=== PATIENT | male | born 1975 | race Hispanic/Latino ===

== ENCOUNTER 2016-08-08 23:46 | Inpatient (IN) | payer OTHER, MEDICARE ==
[~2016-08-08] VITALS: Ht 172.7 cm; Wt 145.2 kg
[~2016-08-08 23:46] MED LIST: INVEGA3 MG PO; LASIX20 M1 PO; METFORMIN HCL500 M3 PO
--- NOTE | 2016-08-09 00:22 | NUR ---
Informed waiting has been performed.
--- NOTE | 2016-08-09 00:52 | NUR ---
PT FROM HOME C/O SOB. PT STATES HE WENT TO THE CLINIC ON 08/05/16 AND THE CLINIC STATED THAT PT HAS AN UPI AND PLACED PT ON ZPAK. PT IN TRIAGE WITH NO ACUTE DISTRESS NOTED, PT STATES "I HAVE BEEN COUGHING UP BLOOD THE PAST 5 DAYS" PT HAS A PRODUCTIVE COUGH WITH CLEAR SPUTUM/RED TINGED. PT 02 SAT IN TRIAGE 84% ON RA. PT STATES DIZZINESS, WOLF, WEAKNESS.
[2016-08-09] MEDS ORDERED: AZITHROMYCIN250 M1 PO (00:53)
--- NOTE | 2016-08-09 01:14 | ED DYSPNEA/ASTHMA COMPLAINT ---
History of Present Illness General Chief Complaint: Upper Respiratory Sx/Fever Stated Complaint: URI,COUGHING UP BLOOD,CHILLS,WEAKNESS,TIRED Source: patient, family, old records Exam Limitations: no limitations Vital Signs & Intake/Output Vital Signs & Intake/Output Vital Signs Date Time Temp Pulse Resp B/P Pulse O2 O2 Flow FiO2 Ox Delivery Rate 08/11 0102 66 93 08/11 0000 94 Nasal 6.0L Cannula 08/11 0000 97.5 84 20 112/90 94 Nasal 6.0L Cannula 08/10 2130 95 Nasal 6.0L Cannula 08/10 2000 96 Nasal 6.0L Cannula 08/10 1600 98.1 78 24 112/80 96 Nasal 6.0L Cannula 08/10 1600 96 Nasal 6.0L Cannula 08/10 1326 94 Nasal 8L Cannula 08/10 1200 94 Aerosol 60% Mask 08/10 0900 95 Aerosol 60% Mask 08/10 0838 92 Nasal 6.0L Cannula 08/10 0800 98.3 83 24 122/86 94 Nasal 6.0L Cannula 08/10 0800 94 Nasal 6.0L Cannula 08/10 0400 92 Nasal 6.0L Cannula 08/10 0250 85 93 ED Intake and Output 08/11 0000 08/10 1200 Intake Total 1350 505 Output Total 600 400 Balance 750 105 Intake, IV 270 405 Intake, Oral 1080 100 Output, Urine 600 400 Allergies Coded Allergies: No Known Allergies (04/21/16) Reconcile Medications Azithromycin 250 MG TABLET 1 DP PO AD UPPER RESP INFECTION (Reported) 2 the first day followed by 1 for days 2-5 Paliperidone (Invega) 3 MG TAB.ER.24 1 TAB PO DAILY SCHIZOPHRENIA (Reported) Triage Note: PT FROM HOME C/O SOB. PT STATES HE WENT TO THE CLINIC ON 08/05/16 AND THE CLINIC STATED THAT PT HAS AN UPI AND PLACED PT ON ZPAK. PT IN TRIAGE WITH NO ACUTE DISTRESS NOTED, PT STATES "I HAVE BEEN COUGHING UP BLOOD THE PAST 5 DAYS" PT HAS A PRODUCTIVE COUGH WITH CLEAR SPUTUM/RED TINGED. PT 02 SAT IN TRIAGE 84% ON RA. PT STATES DIZZINESS, WOLF, WEAKNESS. Triage Nurses Notes Reviewed? yes HPI: Patient is a 40-year-old male presents complaining of cough, dyspnea, chest congestion. Symptoms for approximately 5-6 days. Patient was seen at an urgent care clinic and placed on a Z-Fermin with no improvement. Dyspnea progressively worsening, tonight has become severe. Cough was initially with clear sputum production that over the past 2-3 days has had blood tinged sputum. Mild intermittent chest pain. Occasional subjective fevers. Pain is currently minimal. Denies sick contacts, tobacco use. (YEMI GONZÁLES) Triage Nurses Notes Reviewed? yes Onset: Gradual Duration: day(s): Timing: single episode today Severity: moderate, severe Activities at Onset: none Prior Episodes/Possible Cause: no prior episodes Modifying Factors: Worsens With: movement. Associated Symptoms: cough, wheezing ([address],CARMINA Starr) Past History Travel History Traveled to [place] past 21 day No Medical History Any Pertinent Medical History? see below for history Neurological: NONE EENT: NONE Cardiovascular: NONE Respiratory: NONE Gastrointestinal: NONE Hepatic: NONE Renal: NONE Musculoskeletal: NONE Psychiatric: schizophrenia Endocrine: NIDDM Surgical History Surgical History: non-contributory Psychosocial History What is your primary language Faroese Tobacco Use: Never used ETOH Use: denies use Illicit Drug Use: denies illicit drug use (YEMI GONZÁLES) Family History Hx Contributory? No ([address],CARMINA Starr) Review of Systems Review of Systems Constitutional: Reports: chills, fever, malaise, weakness. EENTM: Reports: no symptoms. Respiratory: Reports: cough, short of breath, sputum production. Cardiovascular: Reports: chest pain. GI: Reports: no symptoms. Genitourinary: Reports: no symptoms. Musculoskeletal: Reports: no symptoms. Skin: Reports: no symptoms. Neurological/Psychological: Reports: no symptoms. Hematologic/Endocrine: Reports: no symptoms. Immunologic/Allergic: Reports: no symptoms. (YEMI GONZÁLES) Physical Exam Physical Exam General Appearance: alert, awake, anxious, severe distress Head: atraumatic, normal appearance Eyes: Bilateral: normal appearance, PERRL, EOMI. Ears, Nose, Throat: normal pharynx, normal ENT inspection, hearing grossly normal Neck: normal inspection, supple, full range of motion Respiratory: moderate diffuse inspiratory and expiratory wheezing with mild increased respiratory effort. Positive tachypnea. Cardiovascular: tachycardia (regular rhythm) Gastrointestinal: soft, non-tender Extremities: normal inspection, normal capillary refill, normal range of motion, no edema Neurologic/Psych: no motor/sensory deficits, awake, alert, oriented x 3, normal mood/affect Skin: diaphoresis Lymphatic: no anterior cervical tristan (YEMI GONZÁELS) Core Measures ACS in differential dx? No Severe Sepsis Present: No Septic Shock Present: No ([address],CARMINA Starr) Progress Plan of Care: Orders Procedure Date/time Status ICU LAB BUNDLE 08/11 050 Active CBC WITHOUT DIFFERENTIAL 08/11 050 Active RT RE-EVALUATION 08/10 UNK Complete THERAPIST ORDERS 08/10 UNK Complete Current Medications Sig/Paco Start time Last Medication Dose Stop Time Status Admin Albuterol Sulfate 3 ML Q4P PRN 08/10 1330 AC (Proventil) Laboratory Tests 08/10/16 0559: Anion Gap 10, Estimated GFR > 60, BUN/Creatinine Ratio 24.3, CBC w Diff NO MAN DIFF REQ, RBC 5.80, MCV 85.3, MCH 27.5, RDW 13.2, MPV 8.0, Gran % 82.2 H, Lymphocytes % 10.9 L, Monocytes % 6.6, Eosinophils % 0, Basophils % 0.3, Absolute Granulocytes 7.5 H, Absolute Lymphocytes 1.0 L, Absolute Monocytes 0.6, Absolute Eosinophils 0, Absolute Basophils 0, PUBS MCHC 32.2 L Patient reports mild improvement after nebulizer treatment. Discussed with patient and his family need for admission given hypoxia and respiratory distress. Antibiotics ordered. Discussed with and signed out to Dr. Kiser with labs and x-ray pending. (YEMI GONZÁLES) Hand-Off Endorsed To: CARMINA KISER MD Endorsed Time: 129 Pending: labs, Xray (YEMI GONZÁLES) Differential Diagnosis: asthma, bronchitis, CHF, COPD, pneumonia Diagnostic Imaging: Viewed by Me: Radiology Read. Discussed w/RAD: Radiology Read. CXR Impression: underpenetrated... full report below. Initial ED EKG: sinus tach Comments: PATIENT: NOEL GRAY PRESENT AGE: 40 PATIENT ACCOUNT NO: [id number] : 77 LOCATION: [facility] ORDERING PHYSICIAN: YEMI KHAN SERVICE DATE: 08/09/16 EXAM TYPE: RAD - XRY-PORTABLE CHEST XRAY EXAMINATION: XR PORTABLE CHEST CLINICAL INFORMATION: Hypoxia, cough COMPARISON: None. TECHNIQUE: AP portable AP upright view of the chest FINDINGS: Asymmetric opacification of the lateral half of the left upper lobe is favored to be technical in nature, due to asymmetric positioning the patient on the study as well as the significant superimposed soft tissues. Cardiac and mediastinal contours are within normal limits for technique. Pulmonary vasculature is also within normal limits. No focal consolidation is identified. IMPRESSION: Limited study due to underpenetration. No definite pulmonary consolidation. Consider dedicated PA and lateral nonportable radiographs for better evaluation. DICTATED BY: KATJA YANES MD DATE/TIME DICTATED:08/09/16149 PHONE BANKER:JAVEIR DATE/TIME TRANSCRIBED:08/09/16149 CONFIDENTIAL, DO NOT COPY WITHOUT APPROPRIATE AUTHORIZATION. <Electronically signed in Other Vendor System> SIGNED BY: KATJA YANES MD 08/09/16 0155 (CARMINA KISER MD) Departure Departure Disposition: STILL A PATIENT Condition: Stable Referrals: MAGALYS REA MD (PCP/Family) Departure Forms: Customer Survey General Discharge Information (YEMI GONZÁLES) Departure Clinical Impression Primary Impression: Pneumonia Secondary Impressions: Sepsis Referred to [facility] as new patient No Admission Note Spoke With: TRISTIN RICHMOND MD Documentation of Exam: Documentation of any treatments & extenuating circumstances including Concerns Regarding Discharge (functional status, medication knowledge or non-compliance, living conditions, etc.) that warrant an admission rather than observation: pt with significant hypoxia, bronchospasm to my exam... requires 02, steroids, nebs, iv abx... feeling better at present, stable for gen med. PA/LITIGATOR Co-Sign Statement Statement: ED Attending supervision documentation- [x] I saw and evaluated the patient. I have also reviewed all the pertinent lab results and diagnostic results. I agree with the findings and the plan of care as documented in the PA's/LITIGATOR's documentation. [] I have reviewed the ED Record and agree with the PA's/LITIGATOR's documentation. [] Additions or exceptions (if any) to the PAs/LITIGATOR's note and plan are summarized below: [] (CARMINA KISER MD) Critical Care Note Critical Care Note Critical Care Time: 30-74 min (YEMI GONZÁLES) Critical Care Note Critical Care Time: 30-74 min (CARMINA KISER MD R.) Lactic Acid Cancelled 08/09/16134: Lactic Acid 0.7 08/09/16134: Anion Gap 11, Estimated GFR > 60, BUN/Creatinine Ratio 18.3, Glucose 100 H, Calcium 8.8, Total Bilirubin 0.7, AST 30, ALT 53, Alkaline Phosphatase 72, Creatine Kinase 98, Troponin I < 0.01, Lxe-H-Podyzyhbqha Pept 29.2, Total Protein 7.5, Albumin 4.2, Globulin 3.3, Albumin/Globulin Ratio 1.3, Triglycerides 99, Cholesterol 154, LDL Cholesterol, Calc 103, HDL Cholesterol 32 L, Cholesterol/HDL Ratio 5 H, PT 12.2, INR 1.16, D-Dimer < 200, CBC w Diff NO MAN DIFF REQ, RBC 6.15 H, MCV 84.4, MCH 27.4, RDW 13.3, MPV 8.1, Gran % 66.1, Lymphocytes % 21.5, Monocytes % 11.1 H, Eosinophils % 1.0, Basophils % 0.3, Absolute Granulocytes 4.5, Absolute Lymphocytes 1.5, Absolute Monocytes 0.8 H, Absolute Eosinophils 0.1, Absolute Basophils 0, PUBS MCHC 32.5 L Microbiology 08/09 1545 URINE ROUT: Legionella Antigen - RECD 08/09 1545 URINE ROUT: Streptococcus pneumoniae Antigen (M - RECD 08/09 1306 UPPER RESP: Surveillance Culture - RECD 08/09 1207 GI: Surveillance Culture - COLB 08/09 0623 LOWER RESP: Respiratory Culture - ORD 08/09 0623 LOWER RESP: Gram Stain - ORD 08/09 0130 BLOOD: Blood Culture - RECD 08/09 0115 BLOOD: Blood Culture - RECD Patient reports mild improvement after nebulizer treatment. Discussed with patient and his family need for admission given hypoxia and respiratory distress. Antibiotics ordered. Discussed with and signed out to Dr. Kiser with labs and x-ray pending. (YEMI GONZÁLES) Diagnostic Imaging: Viewed by Me: Radiology Read. Discussed w/RAD: Radiology Read. CXR Impression: underpenetrated... full report below. Initial ED EKG: sinus tach Comments: PATIENT: NOEL GRAY PRESENT AGE: 40 PATIENT ACCOUNT NO: [id number] : 77 LOCATION: [facility] ORDERING PHYSICIAN: YEMI KHAN SERVICE DATE: 08/09/16 EXAM TYPE: RAD - XRY-PORTABLE CHEST XRAY EXAMINATION: XR PORTABLE CHEST CLINICAL INFORMATION: Hypoxia, cough COMPARISON: None. TECHNIQUE: AP portable AP upright view of the chest FINDINGS: Asymmetric opacification of the lateral half of the left upper lobe is favored to be technical in nature, due to asymmetric positioning the patient on the study as well as the significant superimposed soft tissues. Cardiac and mediastinal contours are within normal limits for technique. Pulmonary vasculature is also within normal limits. No focal consolidation is identified. IMPRESSION: Limited study due to underpenetration. No definite pulmonary consolidation. Consider dedicated PA and lateral nonportable radiographs for better evaluation. DICTATED BY: KATJA YANES MD DATE/TIME DICTATED:08/09/16149 PHONE BANKER:JAVIER DATE/TIME TRANSCRIBED:08/09/16149 CONFIDENTIAL, DO NOT COPY WITHOUT APPROPRIATE AUTHORIZATION. <Electronically signed in Other Vendor System> SIGNED BY: KATJA YANES MD 08/09/16 [address]155 ([address],CARMINA Starr) Departure Departure Disposition: STILL A PATIENT Condition: Stable Referrals: MAGALYS REA MD (PCP/Family) Departure Forms: Customer Survey General Discharge Information (NILSA KHAN,YEMI) Departure Clinical Impression Primary Impression: Pneumonia Secondary Impressions: Sepsis Referred to [facility] as new patient No Admission Note Spoke With: TRISTIN RICHMOND MD Documentation of Exam: Documentation of any treatments & extenuating circumstances including Concerns Regarding Discharge (functional status, medication knowledge or non-compliance, living conditions, etc.) that warrant an admission rather than observation: pt with significant hypoxia, bronchospasm to my exam... requires 02, steroids, nebs, iv abx... feeling better at present, stable for gen med. PA/LITIGATOR Co-Sign Statement Statement: ED Attending supervision documentation- [x] I saw and evaluated the patient. I have also reviewed all the pertinent lab results and diagnostic results. I agree with the findings and the plan of care as documented in the PA's/LITIGATOR's documentation. [] I have reviewed the ED Record and agree with the PA's/LITIGATOR's documentation. [] Additions or exceptions (if any) to the PAs/LITIGATOR's note and plan are summarized below: [] ([address],CARMINA Starr) Critical Care Note Critical Care Note Critical Care Time: 30-74 min (YEMI GONZÁLES) Critical Care Note Critical Care Time: 30-74 min ([address],CARMINA Starr)
--- NOTE | 2016-08-09 01:48 | NUR ---
PT MEDICATED WITH 125 SOLUMEDROL IV, 250MG ZITHRO PO, AND 1 G ROCEPHIN IV PER EMAR. PT RECIEVED GERARDO MAYORGA AND THIS RN SENT BLOOD CULTURES, LABS (VILLALBA, BLUE, SST, LAV) ALONG WITH A FLU SWAB.
--- NOTE | 2016-08-09 01:55 | RADIOLOGY REPORT ---
EXAMINATION: XR PORTABLE CHEST CLINICAL INFORMATION: Hypoxia, cough COMPARISON: None. TECHNIQUE: AP portable AP upright view of the chest FINDINGS: Asymmetric opacification of the lateral half of the left upper lobe is favored to be technical in nature, due to asymmetric positioning the patient on the study as well as the significant superimposed soft tissues. Cardiac and mediastinal contours are within normal limits for technique. Pulmonary vasculature is also within normal limits. No focal consolidation is identified. IMPRESSION: Limited study due to underpenetration. No definite pulmonary consolidation. Consider dedicated PA and lateral nonportable radiographs for better evaluation.
[2016-08-09 02:02] LABS: ABSOLUTE BASOPHIL COUNT 0 /CUMM (0.0-0.2); ABSOLUTE EOSINOPHIL COUNT 0.1 /CUMM (0.0-0.7); ABSOLUTE GRANULOCYTE CT 4.5 /CUMM (1.4-6.5); ABSOLUTE LYMPH COUNT 1.5 /CUMM (1.2-3.4); ABSOLUTE MONOCYTE COUNT 0.8 /CUMM (0.10-0.60); BASOPHIL % 0.3 % (0.0-2.0); GRANULOCYTE % 66.1 % (42.2-75.2); HEMATOCRIT 51.9 % (42-52); MEAN CORPUSCULAR HGB 27.4 PG (27.0-31.0); MEAN CORPUSCULAR HGB CONC 32.5 G/DL (33.0-37.0); MEAN CORPUSCULAR VOLUME 84.4 FL (80.0-94.0); MEAN PLATELET VOLUME 8.1 FL (7.4-10.4); PLATELET COUNT 185 /CUMM (130-400); RBC DISTRIBUTION WIDTH 13.3 % (11.5-14.5); RED BLOOD CELL CT 6.15 /CUMM (4.70-6.10); WHITE BLOOD CELL COUNT 6.9 /CUMM (4.8-10.8)
--- NOTE | 2016-08-09 04:22 | NUR ---
PT SLEEPING ON STRETCHER.
--- NOTE | 2016-08-09 05:52 | NUR ---
HOUSE STAFF IN FOR EVAL
--- NOTE | 2016-08-09 06:05 | History & Physical ---
[facility] 08[facility] 0545: General Information and HPI MD Statement: I have seen and personally examined NOEL GRAY and documented this H&P. The patient is a 40 year old M who presented with a patient stated chief complaint of [shortness of breath]. Source of Information: patient Exam Limitations: no limitations History of Present Illness: Patient is a 40-year-old male with past medical history of schizophrenia presents to the ED today with a chief complaint of shortness of breath, cough, and chest congestion. Patient developed a cough about 4 days ago. He was weak and lethargic and was seen at an urgent care clinic and started on a Z-Fermin. Patient took medication for 3 days with no improvement in his symptoms. He reports worsening cough with occasional blood-streaked sputum, abdominal pain secondary to excessive coughing and intermittent fevers. He reports that his has also been sick during this time. He was a smoker and smoked about 3-4 cigarettes for the past 20 years. Continues to smoke 1-2 cigarettes on and off. Family history of asthma in sister. Has never been diagnosed with asthma/never had a similar episode in the past. Had flu vaccine this year. Vitals in the ED temperature 98.8, pulse 109, respiration 18, blood pressure 143 /89, saturating 80% on room air. Saturations improved to 92% on 2 L nasal cannula. Patient has no white count on admission, H&H 16.9/51.9, normal chemistries, creatinine 0.6, lactic acid 0.7, d-dimer less than 200. EKG: Sinus tach, 110 bpm. Chest x-ray: No definite pulmonary consolidation. Study limited due to under penetration. Allergies/Medications Allergies: Coded Allergies: No Known Allergies (04/21/16) Home Med list Azithromycin 250 MG TABLET 1 DP PO AD UPPER RESP INFECTION (Reported) 2 the first day followed by 1 for days 2-5 Paliperidone (Invega) 3 MG TAB.ER.24 1 TAB PO DAILY SCHIZOPHRENIA (Reported) Past History Travel History Traveled to [place] past 21 day No Medical History Neurological: NONE EENT: NONE Cardiovascular: NONE Respiratory: NONE Gastrointestinal: NONE Hepatic: NONE Renal: NONE Musculoskeletal: NONE Psychiatric: schizophrenia Endocrine: NIDDM Surgical History Surgical History: non-contributory Past Family/Social History Psychosocial History ETOH Use: denies use Illicit Drug Use: denies illicit drug use Review of Systems Review of Systems Constitutional: Reports: malaise, weakness. EENTM: Reports: no symptoms. Cardiovascular: Reports: no symptoms. Respiratory: Reports: cough, hemoptysis, short of breath, sputum production, wheezing. GI: Reports: abdominal pain. Genitourinary: Reports: no symptoms. Musculoskeletal: Reports: no symptoms. Skin: Reports: no symptoms. Neurological/Psychological: Reports: no symptoms. Hematologic/Endocrine: Reports: no symptoms. Exam & Diagnostic Data Last 24 Hrs of Vital Signs/I&O Vital Signs Date Time Temp Pulse Resp B/P Pulse O2 O2 Flow FiO2 Ox Delivery Rate 08/09 0329 96.1 104 22 133/85 92 Nasal 6.0L Cannula 08/09 0149 92 Nasal 2.0L Cannula 08/09 0119 92 Nasal 3.0L Cannula 08/09 0048 98.8 109 18 143/89 80 Room Air Intake & Output 08/09 0800 08/09 0000 08/08 1600 Intake Total Output Total Balance Patient 142.428 kg Weight Physical Exam General Appearance Alert, Oriented X3, Cooperative, Moderate Distress, MORBIDLY OBESE Skin No Rashes, No Breakdown, No Significant Lesion HEENT Atraumatic, PERRLA, EOMI, NASAL CANNULA Neck Supple, No JVD Lymphatic Cervical nl Cardiovascular Regular Rate, Normal S1, Normal S2, No Murmurs Lungs DIFFUSE BILATERAL WHEEZING Abdomen Normal Bowel Sounds, Soft, No Tenderness Neurological Normal Speech, Strength at 5/5 X4 Ext, Normal Tone Extremities No Clubbing, No Cyanosis, No Edema, Normal Pulses Vascular Normal Pulses, Pulses Symmetrical Last 24 Hrs of Labs/Reid: Laboratory Tests 08/09/16 0407: Lactic Acid Cancelled 08/09/16 0135: Lactic Acid 0.7 08/09/16 0135: Anion Gap 11, Estimated GFR > 60, BUN/Creatinine Ratio 18.3, Glucose 100 H, Calcium 8.8, Total Bilirubin 0.7, AST 30, ALT 53, Alkaline Phosphatase 72, Total Protein 7.5, Albumin 4.2, Globulin 3.3, Albumin/Globulin Ratio 1.3, D-Dimer < 200, CBC w Diff NO MAN DIFF REQ, RBC 6.15 H, MCV 84.4, MCH 27.4, RDW 13.3, MPV 8.1, Gran % 66.1, Lymphocytes % 21.5, Monocytes % 11.1 H, Eosinophils % 1.0, Basophils % 0.3, Absolute Granulocytes 4.5, Absolute Lymphocytes 1.5, Absolute Monocytes 0.8 H, Absolute Eosinophils 0.1, Absolute Basophils 0, PUBS MCHC 32.5 L Microbiology 08/09 013 BLOOD: Blood Culture - RECD 08/09 114 BLOOD: Blood Culture - RECD Assessment/Plan Assessment: Patient is a 40-year-old male with past medical history of schizophrenia presents to the ED today with a chief complaint of shortness of breath, cough, and chest congestion. Outpatient failure. Z-Fermin. Occasional hemoptysis. Sick contact . Vitals in the ED temperature 98.8, pulse 109, respiration 18, blood pressure 143 /89, saturating 80% on room air. Saturations improved to 92% on 2 L nasal cannula. Patient has no white count on admission, H&H 16.9/51.9, normal chemistries, creatinine 0.6, lactic acid 0.7, d-dimer less than 200. EKG: Sinus tach, 110 bpm. Chest x-ray: No definite pulmonary consolidation. Study limited due to under penetration. Plan: 1. Acute hypoxic respiratory failure likely secondary to PNA Vs Bonchitis. Outpatient Z-Fermin failure. Low probability of PE, given diffuse wheezing and tight chest on examination and low Ddimer. -Admit patient to [facility] nebs [id number] -Maintain oxygen saturations above 92% -Obtain ABG -Received IV Solu-Medrol 125 in the ED. Continue Solu-Medrol 40 mg every 8 hours. -No evidence of consolidation on chest x-ray, we will do a chest CT to rule out pneumonia. -Patient received 1 dose of IV ceftriaxone and IV azithromycin. Will continue IV ceftriaxone/azithro. -Cultures and sputum cultures -Rapid flu test -Urine strep and Legionella -Pulmonology Consult in a.m. 2.History of schizophrenia -Continue patient's home medicine 3.Obesity -We'll check lipid panel regular diet dvt prophylaxsis regular diet full code PS: ABG showed respiratory acidosis, CT shows multifocal pneumonia. Patient started in BIPAP, repeat ABG in 1 hr. IV antibiotics for CAP. As Ranked By This Provider Problem List: 1. Pneumonia 2. Dyspnea Core Measures/Miscellaneous Acute Coronary Syndrome ACS Diagnosis: No Cerebrovascular Accident CVA/TIA Diagnosis: No Congestive Heart Failure CHF Diagnosis: No Venous Thromboembolism VTE Risk Factors: Age > 40, Smoking VTE Prophylaxis Ordered Inpt: [facility] prophylaxis d/t: No contraindications No VTE Pharm Prophylaxis d/t: No contraindications VTE Diagnosis: No VTE Type: NONE VTE Confirmed by (Test): NONE Severe Sepsis Severe Sepsis Present: No Septic Shock Septic Shock Present: No Miscellaneous Documentation Attending Case Discussed With: ANNE MARIE LANE,LYNNE Primary Care Physician: MAGALYS REA MD Patient sees these Specialists NONE Level of Patient Care: General Medicine TRISTIN RICHMOND 08/09/16 0825: Attending MD Review Statement Attending Statement Attending MD Statement: examined this patient, discuss w/resident/PA/VENETIAN BLIND WASHER, agreed w/resident/PA/VENETIAN BLIND WASHER, discussed with family, reviewed EMR data (avail), reviewed images, amended to note Attending Assessment/Plan: CC: Chest congestion, shortness of breath PMHx: Prediabetes Patient complains productive cough and occasional blood-tinged sputum, along with SOB. Patient complains of sore thoat after the severe persistent cough. he was treated with Z pack at urgent care without much improvement. Daughter and were sick before, occaional smoker, trying to quit. No hx asthma or COPD. Vitals: Tachycardic, tachypneic, requiring 4 L to saturate at 95%, blood pressure in acceptable range. On exam: A O 3, morbidly obese, obvious respiratory distress, accessory muscles in use, RS: Diffuse wheezing throughout the lung burger, no obvious crackles. CVS: S1-S2, RRR, tachycardia. No JVD appreciated. Abdomen: Soft, NT, ND, BS present, no focal neurological deficit, no pedal edema, no skin rashes. Labs: WBC 6.9, hemoglobin 16.9, bicarbonate 36, creatinine 0.6, LFT unremarkable , d-dimer less than 200 ABG: PH 7.24, PCO2 81, PO2 84, bicarbonate 34. Chest x-ray: Limited due to underpenetration. CT chest: Multifocal airspace consolidation in both lungs, more pronounced in the lung bases. This is most likely due to multifocal pneumonia. Developing pulmonary alveolar edema and aspiration are less likely. Hepatic steatosis. A and P #1 acute hypercapnic and hypoxic respiratory failure: Without any significant underlying pulmonary disease. Recent syncopal attacks present. Patient does not have any significant leukocytosis. Initial thought was acute bronchitis secondary to viral infection, but patient had significant wheeze along with elevated bicarbonate on BMP so ABG was obtained which shows respiratory acidosis , patient was started on BiPAP. Meanwhile CT chest was obtained for bloody sputum along with other respiratory complaints, which shows multifocal airspace consolidation. Patient does not have significant leukocytosis as mentioned, in this situation if this is viral versus bacterial is unclear. Continue IV ceftriaxone, azithromycin, closely watch O2 saturations, low threshold to transfer to ICU, consult Ray Morgan MD for pulmonology. Repeat ABG in one hour, if patient has significant hypoxia transferred to ICU. Continue nebulization, Mucinex, IV methylprednisolone 40 every 8 for bronchospasm if okay with pulmonology. #2 Alps for DVT prophylaxis, patient has minimal hemoptysis. Adequate pain control.
--- NOTE | 2016-08-09 06:14 | NUR ---
PATIENT TO CT BY STRETCHER.
--- NOTE | 2016-08-09 06:30 | NUR ---
Emergency Dept UC Admit Note: To be admitted to [facility] by DR. RICHMOND with COPD EXACERBATION as the diagnosis, to 2NB #210-2 location. Nursing Formulation Technician and admitting notified 08/09/16 at [id number]
--- NOTE | 2016-08-09 06:50 | CT SCAN REPORT ---
EXAMINATION: CT CHEST WITHOUT CONTRAST CLINICAL INFORMATION: Shortness of breath. Rule out acute pathology. COMPARISON: Progressively same day. TECHNIQUE: Multidetector volumetric CT imaging of the chest was done. Axial MIP volume rendering provided. Sagittal and coronal reformatted images were obtained. DLP: 900.6 mGy-cm. FINDINGS: LUNGS: Patchy peribronchial opacities are present within both lungs, most notably within the lower lobes and within the lingula. No cavitation. There is mild surrounding interspersed groundglass opacification. These are most compatible with multifocal pneumonia. Aspiration or early alveolar edema are also possible, though less likely. Central airways are clear. No bronchiectasis. MEDIASTINUM: Heart is normal in size. No adenopathy in the mediastinum or jc. Thoracic aorta is normal in caliber. No significant calcific atherosclerosis. PLEURA: There is no pleural effusion. No pleural mass or thickening. AXILLA: No lymphadenopathy. UPPER ABDOMEN: Hepatic steatosis. Upper abdomen is otherwise unremarkable. OSSEOUS STRUCTURES: Moderate moderate multilevel degenerative disc disease. No acute fracture or malalignment. IMPRESSION: 1. Multifocal airspace consolidation in both lungs, more pronounced in the lung bases. This is most likely due to multifocal pneumonia. Developing pulmonary alveolar edema and aspiration are less likely. 2. Hepatic steatosis.
--- NOTE | 2016-08-09 07:00 | NUR ---
PT PLACED ON BIPAP BY RESPIRATORY FOR HIGH CO2 SATS PER RESPIRATORY THERAPIST.
--- NOTE | 2016-08-09 07:30 | NUR ---
ASSUMED CARE, SLEEPING AT PRESENT. BPAP IN PLACE.
--- NOTE | 2016-08-09 08:15 | NUR ---
PT LETHARGIC, 02 SAT 88%, BPAP NURSE RE-ADJUSTED. RESP THERAPY CALLED. 02 INCREASED TO 45%, 02 SAT UP TO 93%.
--- NOTE | 2016-08-09 08:26 | Admission Certification ---
Admission Certification Certification Statement - As attending physician, I certify that at the time of - admission, based on clinical presentation, severity of - symptoms, need for further diagnostic testing and - therapeutic interventions, and risk of adverse outcomes - without in-hospital treatment, in my clinical assessment, - this patient requires an acute hospital stay for a minimum - of two nights or longer. I have also considered psychsocial - factors such as support system, advanced age, financial - issues, cognitive issues, and failed out-patient treatments, - past re-admission history, safety of patient, and lack of - compliance as applicable. Specific rationale supporting this admission is: Acute respiratory failure with pneumonia
--- NOTE | 2016-08-09 09:17 | Event Note ---
Event Note Event Note: upon visining the patient in the morning, patient was saturating 91% on 45% CPAP and he was drowsy. BP and WA were stable. patient was seen by and and it was decided that he should be transferred to ICU for closer monitoring.
--- NOTE | 2016-08-09 09:22 | NUR ---
DR. ARAGON HERE TO EVALUATE.
--- NOTE | 2016-08-09 09:45 | NUR ---
BPAP SETTINGS CHANGED BY DR. ARAGON, TO IPAP 16, O2 40%.
--- NOTE | 2016-08-09 09:51 | NUR ---
BED ASSIGNMENT 180-01, BED NOT QUITE READY, FLOOR WILL CALL WITH REPORT
[2016-08-09 09:54] LABS: PT 12.2 SEC (9.4-12.5)
--- NOTE | 2016-08-09 11:00 | NUR ---
REPORT TO ICU (JEANMARIE ALLISON). TO ICU ON MONITOR WITH FILTER TENDER JELLY.
--- NOTE | 2016-08-09 11:23 | Cons- CRCU ---
ROSSY LANE,KATYA 08/09/16 1123: General Information and HPI Consulting Request Date of Consult: 08/09/16 Requested By: Dr. Jad Parada Reason for Consult: CRCU management Source of Information: patient, EMS History of Present Illness: Patient is a 40-year-old male with past medical history of schizophrenia presents to the ED today with a chief complaint of shortness of breath, cough, and chest congestion. Patient developed a cough about 4 days ago. He was weak and lethargic and was seen at an urgent care clinic and started on a Z-Fermin. Patient took medication for 3 days with no improvement in his symptoms. He reports worsening cough with occasional blood-streaked sputum, abdominal pain secondary to excessive coughing and intermittent fevers. He reports that his has also been sick during this time. He was a smoker and smoked about 3-4 cigarettes for the past 20 years. Continues to smoke 1-2 cigarettes on and off. Family history of asthma in sister. Has never been diagnosed with asthma/never had a similar episode in the past. Had flu vaccine this year. Vitals in the ED temperature 98.8, pulse 109, respiration 18, blood pressure 143 /89, saturating 80% on room air. Saturations improved to 92% on 2 L nasal cannula. Patient has no white count on admission, H&H 16.9/51.9, normal chemistries, creatinine 0.6, lactic acid 0.7, d-dimer less than 200. EKG: Sinus tach, 110 bpm. Chest x-ray: No definite pulmonary consolidation. Study limited due to under penetration. Allergies/Medications Allergies: Coded Allergies: No Known Allergies (04/21/16) Home Med List: Azithromycin 250 MG TABLET 1 DP PO AD UPPER RESP INFECTION (Reported) 2 the first day followed by 1 for days 2-5 Paliperidone (Invega) 3 MG TAB.ER.24 1 TAB PO DAILY SCHIZOPHRENIA (Reported) Current Medications: Current Medications Sig/Paco Start time Last Medication Dose Route Stop Time Status Admin Albuterol Sulfate 3 ML Q4H PRN 08/09 1315 AC INH Albuterol Sulfate 3 ML ONCE ONE 08/09 0115 DC 08/09 INH 08/09 0116 0112 Azithromycin 500 MG DAILY 08/09 1000 AC 08/09 Sodium Chloride 250 ML IV 1059 Azithromycin 250 MG ONCE ONE 08/09 0130 DC 08/09 PO 08/09 0131 0148 Ceftriaxone Sodium 1,000 MG DAILY 08/09 1000 AC IV Ceftriaxone Sodium 0 .STK-MED ONE 08/09 0143 DC .ROUTE Ceftriaxone Sodium 1,000 MG ONCE ONE 08/09 0130 DC 08/09 IV 08/09 0131 0148 Enoxaparin Sodium 40 MG DAILY 08/09 1000 AC 08/09 SC 1439 Influenza Virus 0.5 ML ONCE ONE 08/10 1000 AC Vaccine IM 08/10 1001 Influenza Virus 0.5 ML ONCE ONE 08/09 1230 CAN Vaccine IM 08/09 1500 Ipratropium [place] 2.5 ML ONCE ONE 08/09 0115 DC 08/09 INH 08/09 0116 0112 Methylprednisolone 40 MG Q8 08/09 1400 AC 08/09 IV 1438 Methylprednisolone 0 .STK-MED ONE 08/09 0120 DC .ROUTE Methylprednisolone 125 MG ONCE ONE 08/09 0115 DC 08/09 IV 08/09 0116 0131 Paliperidone 3 MG DAILY 08/09 1000 AC PO Sodium Chloride 1,000 ML Q13H 08/09 1000 AC 08/09 IV 08/09 2259 1033 Review of Systems Review of Systems Constitutional: Reports: see HPI, malaise, weakness. EENTM: Reports: no symptoms, see HPI. Comments ROS as above Past History Travel History Traveled to [place] past 21 day No Medical History Neurological: NONE EENT: NONE Cardiovascular: NONE Respiratory: NONE Gastrointestinal: NONE Hepatic: NONE Renal: NONE Musculoskeletal: NONE Psychiatric: schizophrenia Endocrine: NIDDM Surgical History Surgical History: non-contributory Family History Relations & Conditions If Any: Relation not specified for: *No pertinent family history Psychosocial History Where Do You Live? Home Who Do You Live With? spouse, child Services at Home: None Smoking Status: Current Everyday Smoker ETOH Use: denies use Illicit Drug Use: denies illicit drug use Functional Ability ADLs Independent: dressing, eating, toileting, bathing. Ambulation: independent IADLs Independent: shopping, housework, finances, food prep, telephone, transportation , medication admin. Employment History Employment: Employed Exam & Diagnostic Data Last 24 Hrs of Vital Signs/I&O Vital Signs Date Time Temp Pulse Resp B/P Pulse O2 O2 Flow FiO2 Ox Delivery Rate 08/09 1635 93 BIPAP 40% 08/09 1630 88 93 08/09 1429 90 93 08/09 1257 BIPAP 40% 08/09 1200 92 BIPAP 08/09 1035 96.5 84 22 113/67 92 Trach Mask 40% 08/09 1005 102 93 08/09 0837 89 93 08/09 0826 96.3 80 16 111/63 87 CPAP 08/09 0704 86 92 08/09 0613 96.5 98 18 119/78 95 Nasal 4.0L Cannula 08/09 0329 96.1 104 22 133/85 92 Nasal 6.0L Cannula 08/09 0149 92 Nasal 2.0L Cannula 08/09 0119 92 Nasal 3.0L Cannula 08/09 0048 98.8 109 18 143/89 80 Room Air Intake & Output 08/09 1600 08/09 0800 08/09 0000 Intake Total 225 Output Total Balance 225 Intake, IV 225 Patient 145.15 kg 142.428 kg Weight Physical Exam General Appearance: alert, awake, moderate distress, obese, On Bipap Head: atraumatic, normal appearance Eyes: Bilateral: normal appearance, PERRL, EOMI. Ears, Nose, Throat: normal pharynx, normal ENT inspection, hearing grossly normal Neck: normal inspection, supple Respiratory: decreased breath sounds, rhonchi, wheezing, respiratory distress Cardiovascular: regular rate/rhythm, murmur, normal peripheral pulses, tachycardia Peripheral Pulses: 2+ radial (R), 2+ radial (L) Gastrointestinal: normal bowel sounds, soft, non-tender Back: normal inspection Extremities: normal inspection, normal capillary refill, normal range of motion, edema over the right lower extremity Neurologic/Psych: awake, alert, oriented x 3 Cranial Nerves: normal hearing, normal speech, PERRL Skin: intact Last 48 Hrs of Labs/Reid: Laboratory Tests 08/09/16 1545: Urine Opiates Screen Pending, Methadone Screen Pending, Barbiturate Screen Pending, Ur Phencyclidine Scrn Pending, Amphetamines Screen Pending, U Benzodiazepines Scrn Pending, Urine Cocaine Screen Pending, Urine Cannabis Screen Pending 08/09/16 1210: pH 7.37, pCO2 58 H, pO2 71 L, HCO3 33 H, ABG O2 Sat (Measured) 95.0 L, P-50 (Temp Corrected) YES, Carboxyhemoglobin 0.8 L, O2 Concentration % 40%, Temperature 96.5 L, Respiration Rate 24, O2 Delivery Method BIPAP, Vent Mode ST , Expiratory Pressure 6, Inspiratory Pressure 16, Phlebotomy Draw Site RIGHT RADIAL 08/09/16 0905: pH 7.28 *L, pCO2 70 *H, pO2 76 L, HCO3 33 H, ABG O2 Sat (Measured) 93.0 L, Carboxyhemoglobin 0.8 L, O2 Concentration % 45, Respiration Rate 24, O2 Delivery Method BIPAP, Vent Mode ST, Expiratory Pressure 6, Inspiratory Pressure 18, Phlebotomy Draw Site RIGHT RADIAL 08/09/16 0640: pH 7.24 *L, pCO2 81 *H, pO2 84, HCO3 34 H, ABG O2 Sat (Measured) 94.0 L, P-50 (Temp Corrected) N, Carboxyhemoglobin 0.9 L, O2 Concentration % 6L, O2 Delivery Method N/C, Phlebotomy Draw Site RIGHT RADIAL 08/09/16 0407: Lactic Acid Cancelled 08/09/16 0135: Lactic Acid 0.7 08/09/16 0135: Anion Gap 11, Estimated GFR > 60, BUN/Creatinine Ratio 18.3, Glucose 100 H, Calcium 8.8, Total Bilirubin 0.7, AST 30, ALT 53, Alkaline Phosphatase 72, Creatine Kinase 98, Troponin I < 0.01, Lgv-I-Lgdosvfvzqh Pept 29.2, Total Protein 7.5, Albumin 4.2, Globulin 3.3, Albumin/Globulin Ratio 1.3, Triglycerides 99, Cholesterol 154, LDL Cholesterol, Calc 103, HDL Cholesterol 32 L, Cholesterol/HDL Ratio 5 H, PT 12.2, INR 1.16, D-Dimer < 200, CBC w Diff NO MAN DIFF REQ, RBC 6.15 H, MCV 84.4, MCH 27.4, RDW 13.3, MPV 8.1, Gran % 66.1, Lymphocytes % 21.5, Monocytes % 11.1 H, Eosinophils % 1.0, Basophils % 0.3, Absolute Granulocytes 4.5, Absolute Lymphocytes 1.5, Absolute Monocytes 0.8 H, Absolute Eosinophils 0.1, Absolute Basophils 0, PUBS MCHC 32.5 L Diagnostic Data CXR Results Limited study due to underpenetration. No definite pulmonary consolidation. Consider dedicated PA and lateral nonportable radiographs for better evaluation. Other Results Chest CT: 1. Multifocal airspace consolidation in both lungs, more pronounced in the lung bases. This is most likely due to multifocal pneumonia. Developing pulmonary alveolar edema and aspiration are less likely. 2. Hepatic steatosis. Assessment/Plan Impression/Plan: Patient is a 40 YO M with PMH significant for schizophrenia (on Invega/ Paliperidone) came to the ER with shortness of breath, productive cough with blood tinged sputum. He also had sorethroat and failed outpatient antimicrobial therapy (recieved Z-pack). Vitals in ER - Tachycardic and tachypneic with saturation of 95% on 4L oxygen. ABG at 6am shows pH of 7.24, PaCO2 of 81, PaO2 of 81, HCo3 of 34 on 6L of oxygen ABG at 9am shows pH of 7.28, PaCO2 of 70, PaO2 of 70, HCo3 of 33 A decision was made to transfer patient to ICU for closer monitoring and CRCU consult is placed. Recommendations: Plan: Acute hypercarbic hypoxic respiratory failure secondary to viral bronchitis/ multifocal pneumonia * SOB, cough with blood tinged sputum, sick contacts * No white count/normal temparature. * Received a single dose of 125mg IV solumedrol along with ceftriaxone and Azithromycine in ER * Started on Bipap with NPO and Solumedrol 40mg Q8 * would continue ceftriaxone and azithromycin IV pending cultures. * On Bipap - ABG at noon are much improved with a pH of 7.37, PaCO2 of 58, PaO2 of 71 * Started on regular diet by 4pm * ProBNP, CK and Troponin are negative so far. * Flu vaccine given and TRC/nebs on board. * F/U ECHO Suspected DVT * Asymmetric swelling of the right leg with a D-Dimer <200 * A doppler ultrasound is done to rule out DVT which was negative History of Schizophrenia * On paliperidone at home, will continue that for now. DVT Prophylaxis * ALPS Code Status * Full Code Consult Acknowledgment - Thank you for your consult request. RAMON ARAGON MD 08/09/16 1135: Assessment/Plan Other Findings/Comments: Ramon Ignacio M.D. have examined this patient, reviewed available EMR data, personally reviewed images, discussed with resident/PA/BAND LEADER, discussed management plan with housestaff and nursing staff, discussed managment plan all of healthcare providers, discussed management plan with patient and/or family, agreed with resident/PA/BAND LEADER. The past history and parts of the chart have been autopopulated. Impression 40-year-old man with acute respiratory failure hypoxemic and hypercarbic. Consistent with a multilobar pneumonia possibly bacterial versus viral sick contacts with children and . Plan Continue ceftriaxone and Zithromax pending culture Solu-Medrol for now BiPAP for now and a gas at noon Hydration Echo Doppler of the lower extremities given right lower extremity edema BNP and labs, check CK and troponins DVT prophylaxis at all times TTS 50min Consult Acknowledgment - Thank you for your consult request.
--- NOTE | 2016-08-09 11:32 | PN- Att Addend ---
Attending Addendum Attending Brief Note Patient seen and examined, was admitted last night. 40-year-old male with past medical history significant for schizophrenia who was admitted with acute hypercarbic respiratory failure secondary to community acquired pneumonia. Patient was very lethargic this morning and hard to arouse. He had been kept on BiPAP from last couple of hours which has still not made a difference in his CO2 , Therefore I discussed with Dr. Guzman and we decided to transfer the patient to ICU. Vital Signs Date Time Temp Pulse Resp B/P Pulse O2 O2 Flow FiO2 Ox Delivery Rate 08/09 1035 96.5 84 22 113/67 92 Trach Mask 40% 08/09 1005 102 93 08/09 0837 89 93 08/09 0826 96.3 80 16 111/63 87 CPAP 08/09 0704 86 92 08/09 0613 96.5 98 18 119/78 95 Nasal 4.0L Cannula 08/09 0329 96.1 104 22 133/85 92 Nasal 6.0L Cannula 08/09 0149 92 Nasal 2.0L Cannula 08/09 0119 92 Nasal 3.0L Cannula 08/09 0048 98.8 109 18 143/89 80 Room Air on exam; lethargic, hard to arouse. cv; s1,s2, rrr. resp; limited exam due to body habitus. Decreased breath sounds at b/l bases. abd; soft, obese, bs+. ext; no edema. Laboratory Tests 08/09 08/09 08/09 08/09 0905 0640 0407 0135 Blood Gas pH (7.35 - 7.45 PH) 7.28 *L 7.24 *L pCO2 (35 - 45 TORR) 70 *H 81 *H pO2 (80 - 100 TORR) 76 L 84 HCO3 (21 - 28 MEQ/L) 33 H 34 H ABG O2 Sat (Measured) (>96.0 %) 93.0 L 94.0 L P-50 (Temp Corrected) N Carboxyhemoglobin (1.5 - 5.0 %) 0.8 L 0.9 L O2 Concentration % 45 6L Respiration Rate (BPM) 24 O2 Delivery Method BIPAP N/C Vent Mode ST Expiratory Pressure (CM H2O P) 6 Inspiratory Pressure (CM H2O P) 18 Chemistry Lactic Acid (0.7 - 2.1 mmol/L) Cancelled 0.7 Miscellaneous Phlebotomy Draw Site RIGHT RADIAL RIGHT RADIAL 08/09 134 Chemistry Sodium (137 - 145 mmol/L) 138 Potassium (3.5 - 5.1 mmol/L) 4.2 Chloride (98 - 107 mmol/L) 90 L Carbon Dioxide (22 - 30 mmol/L) 36 H Anion Gap (5 - 16) 11 BUN (9 - 20 mg/dL) 11 Creatinine (0.7 - 1.2 mg/dL) 0.6 L Estimated GFR (>60 ml/min) > 60 BUN/Creatinine Ratio (7 - 25 %) 18.3 Glucose (65 - 99 mg/dL) 100 H Calcium (8.4 - 10.2 mg/dL) 8.8 Total Bilirubin (0.2 - 1.3 mg/dL) 0.7 AST (17 - 59 U/L) 30 ALT (21 - 72 U/L) 53 Alkaline Phosphatase (< 127 U/L) 72 Creatine Kinase (55 - 170 U/L) 98 Troponin I (<0.11 ng/ml) < 0.01 Yke-H-Hxisinturne Pept (<125 pg/mL) 29.2 Total Protein (6.3 - 8.2 g/dL) 7.5 Albumin (3.5 - 5.0 g/dL) 4.2 Globulin (1.9 - 4.2 gm/dL) 3.3 Albumin/Globulin Ratio (1.1 - 2.2 %) 1.3 Triglycerides (<150 mg/dL) 99 Cholesterol (< 200 MG/DL) 154 LDL Cholesterol, Calc (65 - 129 mg/dL) 103 HDL Cholesterol (40 - 60 mg/dL) 32 L Cholesterol/HDL Ratio (0.00 - 4.88 %) 5 H Coagulation PT (9.4 - 12.5 SEC) 12.2 INR (0.90 - 1.17) 1.16 D-Dimer (70 - 232 ng/ml) < 200 Hematology CBC w Diff NO MAN DIFF REQ WBC (4.8 - 10.8 /CUMM) 6.9 RBC (4.70 - 6.10 /CUMM) 6.15 H Hgb (14.0 - 18.0 G/DL) 16.9 Hct (42 - 52 %) 51.9 MCV (80.0 - 94.0 FL) 84.4 MCH (27.0 - 31.0 PG) 27.4 RDW (11.5 - 14.5 %) 13.3 Plt Count (130 - 400 /CUMM) 185 MPV (7.4 - 10.4 FL) 8.1 Gran % (42.2 - 75.2 %) 66.1 Lymphocytes % (20.5 - 51.1 %) 21.5 Monocytes % (1.7 - 9.3 %) 11.1 H Eosinophils % (0 - 5 %) 1.0 Basophils % (0.0 - 2.0 %) 0.3 Absolute Granulocytes (1.4 - 6.5 /CUMM) 4.5 Absolute Lymphocytes (1.2 - 3.4 /CUMM) 1.5 Absolute Monocytes (0.10 - 0.60 /CUMM) 0.8 H Absolute Eosinophils (0.0 - 0.7 /CUMM) 0.1 Absolute Basophils (0.0 - 0.2 /CUMM) 0 PUBS MCHC (33.0 - 37.0 G/DL) 32.5 L A/P; 40-year-old male with past medical history significant for schizophrenia on Invega, who was admitted with acute hypercarbic respiratory failure secondary to community acquired pneumonia. Patient was very lethargic this morning and hard to arouse. He had been kept on BiPAP from last couple of hours which has still not made a difference in his CO2, Therefore I discussed with Dr. Guzman and we decided to transfer the patient to ICU. Currently getting treated with azithromycin and ceftriaxone for Coumadin acquired pneumonia coverage. He is also started on IV steroids. We'll continue the TRC nebs. Continue BiPAP but please follow for the pulmonology recommendations. Please check a U tox. Follow-up on all the cultures. DVT prophylaxis: Lovenox
--- NOTE | 2016-08-09 12:12 | ULTRASOUND REPORT ---
EXAMINATION: US TRIPLEX LOWER EXTREMITY, RIGHT CLINICAL INFORMATION: Right lower extremity swelling. COMPARISON: None. TECHNIQUE: Color-flow triplex imaging with spectral analysis and compression Doppler were performed on the right lower extremity. FINDINGS: Respiratory variation, normal compression and augmented flow are noted throughout the lower extremity. The visualized common femoral vein, superficial femoral vein, profunda femoral vein, popliteal vein and mid calf peroneal and posterior tibial venous segments show no evidence of deep venous thrombosis. There is no Rangel's cyst. IMPRESSION: No evidence of deep venous thrombosis involving the right lower extremity.
--- NOTE | 2016-08-09 13:21 | NUR ---
at 1200: admit note: patient alert and orientated x 3, denies pain, bipap remains on patient. respiratory therapist at bedside. abg drawn. skin intact. call watt within reach.
[2016-08-09 16:00] VITALS: BP 122/70
--- NOTE | 2016-08-09 16:00 | NUR ---
ASSUMED CARE OF PATIENT. PATIENT ALERT IN MILD RESPIRATORY DISTRESS WEARING BIPAP AT 16\6 AND 40% OXYGEN WITH SAT OF 94%. ABD SOFT NON TENDER. PATIENT ABLE TO VOID IN URINAL, URINE SPECIMEN SENT TO LAB. FLU SWAB OBTAINED AND SENT TO LAB. ABLE TO MOVE ALL EXTREMTIES AND CHANGE POSTION WITHOUT ASSISTANCE.
[2016-08-10] VITALS: BP 120/80
--- NOTE | 2016-08-10 04:36 | NUR ---
PT ALERT AND ORIENTED. DENIES PAIN AT THIS TIME. PLACED ON 6L O2 PER REQUEST BY PT, SATURATION 92%. NSR 80'S, MANUAL BP 128/80. LUNGS SOUND CLEAR. RFUSING TO HAVE HIS BLOOD DRAWN. VOIDS USING THE URINAL.
[2016-08-10 06:27] LABS: ABSOLUTE BASOPHIL COUNT 0 /CUMM (0.0-0.2); ABSOLUTE EOSINOPHIL COUNT 0 /CUMM (0.0-0.7); ABSOLUTE GRANULOCYTE CT 7.5 /CUMM (1.4-6.5); ABSOLUTE MONOCYTE COUNT 0.6 /CUMM (0.10-0.60); BASOPHIL % 0.3 % (0.0-2.0); EOSINOPHIL % 0 % (0-5); GRANULOCYTE % 82.2 % (42.2-75.2); HEMATOCRIT 49.5 % (42-52); MEAN CORPUSCULAR HGB 27.5 PG (27.0-31.0); MEAN CORPUSCULAR HGB CONC 32.2 G/DL (33.0-37.0); MEAN CORPUSCULAR VOLUME 85.3 FL (80.0-94.0); PLATELET COUNT 216 /CUMM (130-400); RBC DISTRIBUTION WIDTH 13.2 % (11.5-14.5); WHITE BLOOD CELL COUNT 9.1 /CUMM (4.8-10.8)
--- NOTE | 2016-08-10 07:44 | PN- Resident CRCU ---
ROSSY LANE,KATYA 08/10/16 0744: Subjective HPI/CRCU Issues: Patient is a 40 YO M with PMH significant for schizophrenia (on Invega/ Paliperidone) came to the ER with shortness of breath, productive cough with blood tinged sputum. He also had sorethroat and failed outpatient antimicrobial therapy (recieved Z-pack). Vitals in ER - Tachycardic and tachypneic with saturation of 95% on 4L oxygen. ABG at 6am shows pH of 7.24, PaCO2 of 81, PaO2 of 81, HCo3 of 34 on 6L of oxygen ABG at 9am shows pH of 7.28, PaCO2 of 70, PaO2 of 70, HCo3 of 33 Eventually transfered to ICU, he was on BiPAP yesterday, his ABG at noon was normal. He was off BiPAP from 6pm to 11pm had some food. Again on BiPAP through out the night. I saw and examined the patient today morning. He is found to be tachycardic after the respiratory treatment and jittery, saturating 89% on 6L oxygen. Feels much better than yesterday. He had significant cough with ras sputum production. Objective Vital Signs & I&O Last 8 Hrs of Vitals and I&O: VS Afebrile, HR in SR and ST with 84-96, BP 100-130/80mmHg, satuarting 89% on 5L NC currently BiPAP settings yesterday are 16/6 I/O - 1750/875 IVF on NS @ 75ml/hr yesterday. Exam General Appearance: alert, awake, anxious, comfortable, mild distress, obese Head: atraumatic, normal appearance Ears, Nose, Throat: normal pharynx, normal ENT inspection, hearing grossly normal Neck: normal inspection, supple Respiratory: chest non-tender, rhonchi, wheezing, respiratory distress, Diffuse expiratory wheezing present. Cardiovascular: regular rate/rhythm, normal peripheral pulses Gastrointestinal: normal bowel sounds, soft, abdominal pain form coughing Extremities: normal inspection, normal capillary refill, normal range of motion Cranial Nerves: normal hearing, normal speech, PERRL Skin: intact Nutrition Nutrition: P.O. diet Current Medications: Current Medications Sig/Paco Start time Last Medication Dose Route Stop Time Status Admin Albuterol Sulfate 3 ML TID 08/10 1000 AC INH Albuterol Sulfate 3 ML Q4H PRN 08/09 1315 DC 08/10 INH 0829 Alprazolam 0.25 MG ONCE ONE 08/10 0915 DC PO 08/10 0916 Azithromycin 500 MG DAILY 08/09 1000 AC 08/10 Sodium Chloride 250 ML IV 1116 Ceftriaxone Sodium 1,000 MG DAILY 08/09 1000 AC 08/10 IV 0948 Enoxaparin Sodium 40 MG DAILY 08/09 1000 AC 08/10 SC 0948 Influenza Virus 0.5 ML ONCE ONE 08/10 1000 DC Vaccine IM 08/10 1001 Influenza Virus 0.5 ML ONCE ONE 08/09 1230 CAN Vaccine IM 08/09 1500 Methylprednisolone 40 MG Q8 08/09 1400 AC 08/10 IV 0545 Paliperidone 3 MG DAILY 08/09 1000 AC 08/10 PO 0940 Sodium Chloride 2 SPRAY Q4P PRN 08/10 0915 AC 08/10 DINESH 0940 Sodium Chloride 1,000 ML Q13H 08/09 1000 DC 08/09 IV 08/09 2259 1033 Antibiotics Antibiotic: ceftriaxone and azithromycin Day #: 2 IV/PO? IV Results Cultures: Culture: negative so far Impression/Plan Impression/Problem List Impression: Patient is a 40 YO M with PMH significant for schizophrenia (on Invega/ Paliperidone) came to the ER with shortness of breath, productive cough with blood tinged sputum. He also had sorethroat and failed outpatient antimicrobial therapy (recieved Z-pack). Vitals in ER - Tachycardic and tachypneic with saturation of 95% on 4L oxygen. ABG at 6am shows pH of 7.24, PaCO2 of 81, PaO2 of 81, HCo3 of 34 on 6L of oxygen ABG at 9am shows pH of 7.28, PaCO2 of 70, PaO2 of 70, HCo3 of 33 A decision was made to transfer patient to ICU for closer monitoring and CRCU consult is placed. Recommendations: Plan: Acute hypercarbic hypoxic respiratory failure secondary to viral bronchitis/ multifocal pneumonia * SOB, cough with blood tinged sputum, sick contacts * No white count/normal temparature. * A single dose of 125mg IV solumedrol along with ceftriaxone and Azithromycine are given in ER. * Started on Bipap with NPO and Solumedrol 40mg Q8 * would continue ceftriaxone and azithromycin IV pending cultures. * On Bipap - ABG at noon are much improved with a pH of 7.37, PaCO2 of 58, PaO2 of 71 * ProBNP, CK and Troponin are negative. * Flu vaccine given and TRC/nebs on board. * F/U ECHO Suspected DVT * Asymmetric swelling of the right leg with a D-Dimer <200 * A doppler ultrasound is done to rule out DVT which was negative History of Schizophrenia * On paliperidone at home, will continue that for now. Problem List: 1. Pneumonia 2. Dyspnea 3. Extremity edema Pain Ratin Tomorrow's Labs & Rationales: icu bundle cbc Plan DVT/Prophylaxis: mechanical Code Status: Full Code RAMON ARAGON MD 08/10/16 1117: Attending MD Review Statement Attending Sign Off Attending Cosign Statement: I have: examined this patient, reviewed aval EMR data, personally reviewd images, discussd w/resident/PA/DRAIN TECHNICIAN, discussed mgmt plan w/leonela, discussed mgmt plan w/CM, discussed mgmt plan w/pt, agreed w/resident/PA/DRAIN TECHNICIAN, amended to note. Other Findings: IRamon M.D. have examined this patient, reviewed available EMR data, personally reviewed images, discussed with resident/PA/DRAIN TECHNICIAN, discussed management plan with housestaff and nursing staff, discussed managment plan all of healthcare providers, discussed management plan with patient and/or family, agreed with resident/PA/DRAIN TECHNICIAN. The past history and parts of the chart have been autopopulated. TTS 35min. Cont abx Likely viral pna, could have bacterial component from CAP reduce fio2 as tolerated GM DG
[2016-08-10 08:00] VITALS: BP 122/86
--- NOTE | 2016-08-10 11:39 | NUR ---
Patient is alert and oriented x's 3, able to follow commands and answer questions appropriately. NSR-ST on tele monitor, HR= 80-100's however after albuterol treatment HR did increase to the 120's. Pt denies chest pain. SBP: 120-130's. Currently on 60% aerosol mask. Pt began dropping O2 sats to 87% on 6L nc and c/o congestion. O2 sats on AM now 94-96%. Lungs wheezey and diminished at the bases. He is SOB with exertion and O2 sat does drop to 86%. Productive cough with moderate amounts of brown sputum. Abdomen is distended and soft with + bowel sounds. Denies nausea or vomiting and is tolerating po well. He ambulated to the chair with minimal assistance and a commode was provided. Voiding clear yellow urine. SKin intact and no edema is noted. Pt currently denies pain. Receiving IV solumedrol and ABX per order. Vitals currently stable and pt offers no complaints at this time. Educated on POC. Dr. Guzman in to assess patient this morning and to remain in the ICU at this time. Pt requesting to shower however is unable to at this time due to his respiratory status and proper monitor. Pt verbalized understanding. Will continue to closely monitor patient.
[2016-08-10 16:00] VITALS: BP 112/80
[2016-08-11] VITALS: BP 112/90
[2016-08-11 05:55] LABS: ABSOLUTE BASOPHIL COUNT 0 /CUMM (0.0-0.2); ABSOLUTE EOSINOPHIL COUNT 0 /CUMM (0.0-0.7); ABSOLUTE GRANULOCYTE CT 10.1 /CUMM (1.4-6.5); ABSOLUTE LYMPH COUNT 1.1 /CUMM (1.2-3.4); ABSOLUTE MONOCYTE COUNT 0.3 /CUMM (0.10-0.60); BASOPHIL % 0 % (0.0-2.0); EOSINOPHIL % 0 % (0-5); HEMATOCRIT 50.6 % (42-52); MEAN CORPUSCULAR HGB 27.7 PG (27.0-31.0); MEAN CORPUSCULAR HGB CONC 32.1 G/DL (33.0-37.0); MEAN CORPUSCULAR VOLUME 86.3 FL (80.0-94.0); MEAN PLATELET VOLUME 8.4 FL (7.4-10.4); PLATELET COUNT 221 /CUMM (130-400); RBC DISTRIBUTION WIDTH 13.2 % (11.5-14.5); RED BLOOD CELL CT 5.87 /CUMM (4.70-6.10); WHITE BLOOD CELL COUNT 11.5 /CUMM (4.8-10.8)
--- NOTE | 2016-08-11 07:49 | PN- Resident CRCU ---
Subjective HPI/CRCU Issues: Patient is a 40-year-old male with past medical history of schizophrenia presents to the ED today with a chief complaint of shortness of breath, cough, and chest congestion. He failed antimicrobial therapy as an outpatient with Velma posada. His cough worsened and had mild steaky sputum (bronchitis). He is a current smoker. In the ER his ABGs are found to have very low pH around pH of 7.2 twice and a CRCU consult is placed Current CRCU issues: 1. Acute hypoxic hypercarbic respiratory failure 2. multilobar pneumonia secondary to viral 24 Hour Events: I saw and examined the patient today morning. He is lying comfortably on the bed with oxygen nonbreather mask at 10 L of oxygen. Reports he slept well still had some cough with phlegm production. He denies any fever overnight and any shortness of breath. Objective Vital Signs & I&O Last 8 Hrs of Vitals and I&O: Intake & Output 08/11 1600 Intake Total 1210 Output Total Balance 1210 Intake, IV 250 Intake, Oral 960 Vital signs overnight are stable He is afebrile with a heart rate of 80-90, blood pressure of 08/27/1927/80 mmHg, on oxygen mask Exam General Appearance: no apparent distress, alert, awake, comfortable, obese Head: atraumatic, normal appearance Ears, Nose, Throat: normal pharynx, normal ENT inspection, hearing grossly normal Neck: normal inspection, supple Respiratory: chest non-tender, wheezing, respiratory distress Cardiovascular: regular rate/rhythm, normal peripheral pulses Gastrointestinal: normal bowel sounds, soft, non-tender Extremities: normal inspection, normal capillary refill, normal range of motion Cranial Nerves: normal hearing, normal speech, PERRL Skin: intact, normal color Nutrition Nutrition: P.O. diet Current Medications: Current Medications Sig/Paco Start time Last Medication Dose Route Stop Time Status Admin Albuterol Sulfate 3 ML Q4P PRN 08/10 1330 AC 08/11 INH 1949 Azithromycin 500 MG DAILY 08/09 1000 AC 08/11 Sodium Chloride 250 ML IV 0953 Ceftriaxone Sodium 1,000 MG DAILY 08/09 1000 AC 08/11 IV 0953 Enoxaparin Sodium 40 MG DAILY 08/09 1000 AC 08/11 SC 0953 Methylprednisolone 40 MG Q12 08/11 2200 AC IV Methylprednisolone 40 MG Q8 08/09 1400 DC 08/11 IV 0607 Paliperidone 3 MG DAILY 08/09 1000 AC 08/11 PO 0911 Sodium Chloride 2 SPRAY Q4P PRN 08/10 0915 AC 08/10 DINESH 0940 CXR Findings: Low lung volumes. Possible mild left basilar opacity. Overall appearance is without significant change from 08/09/2016. Impression/Plan Impression/Problem List Impression: Patient is a 40 YO M with PMH significant for schizophrenia (on Invega/ Paliperidone) came to the ER with shortness of breath, productive cough with blood tinged sputum. He also had sorethroat and failed outpatient antimicrobial therapy (recieved Z-pack). Vitals in ER - Tachycardic and tachypneic with saturation of 95% on 4L oxygen. ABG at 6am shows pH of 7.24, PaCO2 of 81, PaO2 of 81, HCo3 of 34 on 6L of oxygen ABG at 9am shows pH of 7.28, PaCO2 of 70, PaO2 of 70, HCo3 of 33 A decision was made to transfer patient to ICU for closer monitoring and CRCU consult is placed. Recommendations: Plan: Acute hypercarbic hypoxic respiratory failure secondary to viral bronchitis/ multifocal pneumonia * SOB, cough with blood tinged sputum, sick contacts * No white count/normal temparature. * A single dose of 125mg IV solumedrol along with ceftriaxone and Azithromycine are given in ER. * IV Solumedrol 40mg Q12 * would continue ceftriaxone and azithromycin IV * On oxygen nonrebreather mask, still high oxygen requirements * ProBNP, CK and Troponin are negative. * Flu vaccine given and TRC/nebs on board. * ECHO shows Normal left ventricular sysrolic function with mild concentric hyopertrophy. No significant valvular abnormalitiesa noted. * Ejection fraction of 60-65%. Suspected DVT * Asymmetric swelling of the right leg with a D-Dimer <200 * A doppler ultrasound is done to rule out DVT which was negative History of Schizophrenia * On paliperidone at home, will continue that for now. Problem List: 1. Extremity edema 2. Pneumonia Pain Ratin Tomorrow's Labs & Rationales: ICU bundle, CBC Plan DVT/Prophylaxis: mechanical Code Status: Full Code
[2016-08-11 08:00] VITALS: BP 118/70
--- NOTE | 2016-08-11 10:01 | PN- CRCU ---
Subjective HPI/Critical Care Issues: Patient seen and examined. He is on 8 L nasal cannula saturating 91% overall feels better able to eat white count 11.5 creatinine normal 0.7. The venous Doppler shows no DVT. Patient overall has no nausea no vomiting no diarrhea no constipation no chest pain and he has been afebrile. Objective Current Medications: Current Medications Sig/Paco Start time Last Medication Dose Route Stop Time Status Admin Albuterol Sulfate 3 ML Q4P PRN 08/10 1330 AC INH Albuterol Sulfate 3 ML TID 08/10 1000 DC 08/10 INH 1320 Azithromycin 500 MG DAILY 08/09 1000 AC 08/11 Sodium Chloride 250 ML IV 0953 Ceftriaxone Sodium 1,000 MG DAILY 08/09 1000 AC 08/11 IV 0953 Enoxaparin Sodium 40 MG DAILY 08/09 1000 AC 08/11 SC 0953 Influenza Virus 0.5 ML ONCE ONE 08/10 1000 DC Vaccine IM 08/10 1001 Methylprednisolone 40 MG Q8 08/09 1400 AC 08/11 IV 0607 Ondansetron HCl 4 MG ONCE ONE 08/10 1645 DC 08/10 PO 08/10 1646 1702 Paliperidone 3 MG DAILY 08/09 1000 AC 08/11 PO 0911 Sodium Chloride 2 SPRAY Q4P PRN 08/10 0915 AC 08/10 DINESH 0940 Vital Signs & I&O Last 24 Hrs of Vitals and I&O: Vital Signs Date Time Temp Pulse Resp B/P Pulse O2 O2 Flow FiO2 Ox Delivery Rate 08/11 0846 93 Nasal 8L Cannula 08/11 0800 97.8 99 20 118/70 93 Nasal 6.0L Cannula 08/11 0800 93 Nasal 6.0L Cannula 08/11 0400 95 Nasal 6.0L Cannula 08/11 0102 66 93 08/11 0000 94 Nasal 6.0L Cannula 08/11 0000 97.5 84 20 112/90 94 Nasal 6.0L Cannula 08/10 2130 95 Nasal 6.0L Cannula 08/10 2000 96 Nasal 6.0L Cannula 08/10 1600 98.1 78 24 112/80 96 Nasal 6.0L Cannula 08/10 1600 96 Nasal 6.0L Cannula 08/10 1326 94 Nasal 8L Cannula 08/10 1200 94 Aerosol 60% Mask Intake & Output 08/11 1600 08/11 0800 08/11 0000 Intake Total 200 540 Output Total Balance 200 540 Intake, Oral 200 540 Exam Other Physical Findings: General - Alert, awake and oriented HEENT - normocephalic, atraumatic Cardiovascular - S1, S2 Lungs - rare rhonchi and diminished breath sounds bilaterally Abdomen - soft, bowel sounds positive, no tenderness Extremities - without edema or cyanosis Results Last 24 Hrs of Lab Results: Laboratory Tests 08/11/16 0500: Anion Gap 11, Estimated GFR > 60, Glucose 171 H, Calcium 8.6, Phosphorus 5.6 H , Magnesium 2.2, Total Bilirubin 0.4, AST 19, ALT 38, Albumin 3.8, CBC w Diff MAN DIFF ORDERED, RBC 5.87, MCV 86.3, MCH 27.7, RDW 13.2, MPV 8.4, Gran % 88.0 H, Lymphocytes % 9.7 L, Monocytes % 2.3, Eosinophils % 0, Basophils % 0 L, Absolute Granulocytes 10.1 H, Segmented Neutrophils 81 H, Band Neutrophils 4, Absolute Lymphocytes 1.1 L, Lymphocytes 14 L, Monocytes 1 L, Absolute Monocytes 0.3, Absolute Eosinophils 0, Absolute Basophils 0, Platelet Estimate ADEQUATE, Polychromasia 1+, Ovalocytes FEW, PUBS MCHC 32.1 L, Fld Total RBCs Counted 100 Impression/Plan Impression/Plan Impression/Plan: Impression 32-year-old man with acute hypoxemic respiratory failure secondary to pneumonia could be community-acquired versus viral. Plan - Reduce FiO2 as tolerated - Keep SPO2 above 88% - Get a chest x-ray today - Continue antibiotics empirically for at least 7-10 day course depending on clinical outcome - [facility] nebs - Reduce Solu-Medrol to 40 mg IV every 12 - DVT prophylaxis at all times TTS 35 min Code Status: Full Code
--- NOTE | 2016-08-11 10:39 | RADIOLOGY REPORT ---
EXAMINATION: XR PORTABLE CHEST CLINICAL INFORMATION: Cough, high oxygen requirement COMPARISON: 08/09/2016 TECHNIQUE: Portable view of the chest was obtained. FINDINGS: The lungs are hypoinflated. Mild airspace opacity is suspected at the left base. No pneumothorax is seen. No definite pleural effusion or overt pulmonary edema. The cardiomediastinal silhouette is stable. No acute osseous findings are seen. IMPRESSION: Low lung volumes. Possible mild left basilar opacity. Overall appearance is without significant change from 08/09/2016.
--- NOTE | 2016-08-11 11:29 | NUR ---
Patient is alert and oriented x's 3, able to follow commands and respond approprietly. Anxious at times. NSR-ST on tele monitor, HR= 80-100's. SBp: 110-120's and pt denies chest pain. Currently on a 55% venti mask, O2 sat 91-94%. He is SOB with exertion and O2 sats drop down to the low 80%. Lungs wheezey and rhonchorous. A productive cough is noted with moerate amounts of white sputum. Abdomen is distended and soft non tender with + bowel sounds. He is tolerating po well. OOB with minimal assistance to toilet to void. Skin intact with no areas of pressure injury noted. IV abx and solumedrol per order. Patient and updated on POC by this RN and Dr. Guzman. Patient denies pain at this time and vitals remain stable. Will continue to closely monitor patient.
[2016-08-11 16:00] VITALS: BP 120/80
--- NOTE | 2016-08-11 20:28 | ECHOCARDIOGRAM REPORT ---
MARINANOEL Age: 40 : 1975 Gender: M Exam Date: 08/11/2016 15:18 Exam Location: [facility] Ht (in): 68 Wt (lb): 314 BSA: 2.69 BP: 113 / 67 Ordering Physician: JOCELYNE CARDENAS MD Referring Physician: Milad English MD Technologist: Tena Rutherford [facility] Room Number: 103 Indications: RESPIRATORY FAILURE Rhythm: Sinus Technical Quality: Fair FINDINGS Left Ventricle Normal size left ventricle. Left ventricular wall thickness mildly increased. Normal left ventricular ejection fraction estimated at 60-65%. Right Ventricle Normal right ventricular size and function. Right Atrium Normal right atrial size. Left Atrium Normal left atrial size. Mitral Valve Mitral valve normal in structure and function. Trace mitral regurgitation. Aortic Valve Aortic valve is normal in structure and function. Tricuspid Valve Tricuspid valve is normal in structure and function. Pulmonic Valve Pulmonic valve not well visualized, grossly normal. Pericardium No pericardial effusion. Great Vessels Normal size aortic root. CONCLUSIONS Normal left ventricular sysrolic function with mild concentric hyopertrophy. No significant valvular abnormalitiesa nored. Milad English M.D. (Electronically Signed) Final Date: 11 August 2016 20:28 MEASUREMENTS (Male / Female) Normal Values 2D ECHO LV Diastolic Diameter PLAX 3.1 cm 4.2 - 5.9 / 3.9 - 5.3 cm LV Systolic Diameter PLAX 2.5 cm 2.1 - 4.0 cm LV Fractional Shortening PLAX 19.4 % 25 - 46 % LV Ejection Fraction 2D Teich 41.1 % IVS Diastolic Thickness 1.3 cm LVPW Diastolic Thickness 1.3 cm LV Relative Wall Thickness 0.8 RV Internal Dim ED PLAX 4.4 cm 1.9 - 3.8 cm LVOT Diameter 2.3 cm Aortic Root Diameter 3.7 cm LA Systolic Diameter LX 3.6 cm 3.0 - 4.0 / 2.7 - 3.8 cm LA Volume 32.0 cm 18 - 58 / 22 - 52 cm Ascending Aorta Diameter 3.5 cm DOPPLER AV Peak Velocity 141.0 cm/s AV Peak Gradient 8.0 mmHg AV Mean Velocity 97.5 cm/s AV Mean Gradient 4.0 mmHg AV Velocity Time Integral 27.9 cm LVOT Peak Velocity 122.0 cm/s LVOT Peak Gradient 6.0 mmHg LVOT Mean Velocity 80.1 cm/s LVOT Mean Gradient 3.0 mmHg LVOT Velocity Time Integral 23.6 cm LVOT Stroke Volume 98.1 cm AV Area Cont Eq vti 3.5 cm AV Area Cont Eq pk 3.6 cm MV Peak Velocity 126.0 cm/s MV Peak Gradient 6.4 mmHg MV Mean Velocity 63.3 cm/s MV Mean Gradient 2.0 mmHg Mitral E Point Velocity 112.0 cm/s Mitral A Point Velocity 79.5 cm/s Mitral E to A Ratio 1.4 MV PHT Velocity 132.0 cm/s MV Deceleration Lea 768.0 cm/s MV Pressure Half Time 51.6 ms MV Area PHT 4.3 cm MV Deceleration Time 172.0 ms PV Peak Velocity 95.1 cm/s PV Peak Gradient 3.6 mmHg PV Mean Velocity 64.6 cm/s PV Mean Gradient 2.0 mmHg PV Velocity Time Integral 19.7 cm LV E' Lateral Velocity 14.9 cm/s Mitral E to LV E' Lateral Ratio 7.5 LV E' Septal Velocity 10.5 cm/s Mitral E to LV E' Septal Ratio 10.7
[2016-08-12] VITALS: BP 138/80
--- NOTE | 2016-08-12 00:23 | NUR ---
PATIENT RECEIVED ASLEEP, AWAKENED WITH VS CHECK- ORIENTED X3, SKIN PINK, WARM AND DRY, PATIENT DENIES ANY C/O DISCOMFORT AT THIS TIME ALTHOUGH HE STATES THAT HE FEELS "WHEEZY"- BREATHE SOUNDS CLEAR ON LEFT, RIGHT SIDED MILD INSPIRATORY AND EXPIRATORY WHEEZE NOTED- RT NOTIIFIED- TO EVALUATE PATIENT, [employer] SAL[employer] SINUS WITHOUT ECTOPY, HEART RATE 70'S/MIN, PATIENT TOLERATING O2 AT 5L/MIN VIA NC- CONTINUOUS O2 SAT 95%, PATIENT RE-SETTLED FOR SLEEP, CALL LIGHT WITHIN REACH
--- NOTE | 2016-08-12 02:27 | NUR ---
PATIENT HAD BEEN SLEEPING SOUNDLY, AWAKE NOW COUGHING AND EXPECTORATING WHITE TO CLEAR SECRETIONS, INSPIRATORY WHEEZE MORE PRONOUNCED AFTER COUGHING- O2 YOBANY DECREASED TO 89 TO 91%- RESPIRATORY TREATMENT GIVEN BY RT
[2016-08-12 05:49] LABS: ABSOLUTE BASOPHIL COUNT 0 /CUMM (0.0-0.2); ABSOLUTE EOSINOPHIL COUNT 0 /CUMM (0.0-0.7); ABSOLUTE GRANULOCYTE CT 10.1 /CUMM (1.4-6.5); ABSOLUTE LYMPH COUNT 1.1 /CUMM (1.2-3.4); ABSOLUTE MONOCYTE COUNT 0.2 /CUMM (0.10-0.60); BASOPHIL % 0.1 % (0.0-2.0); EOSINOPHIL % 0 % (0-5); GRANULOCYTE % 88.3 % (42.2-75.2); HEMATOCRIT 47.8 % (42-52); MEAN CORPUSCULAR HGB 27.7 PG (27.0-31.0); MEAN CORPUSCULAR HGB CONC 32.2 G/DL (33.0-37.0); PLATELET COUNT 240 /CUMM (130-400); RBC DISTRIBUTION WIDTH 13.5 % (11.5-14.5); RED BLOOD CELL CT 5.55 /CUMM (4.70-6.10); WHITE BLOOD CELL COUNT 11.4 /CUMM (4.8-10.8)
[2016-08-12 08:00] VITALS: BP 122/90
--- NOTE | 2016-08-12 08:21 | NUR ---
0500 BREATHE SOUNDS CLEAR AFTER RESPIRATORY TREATMENT- NO FURTHER WHEEZES AUDIBLE 0630 PATIENT HAS SLEPT WELL OVERNIGHT, O2 SAT MAINTAINED 94 TO 96% ON 5L/MIN O2 VIA NC, PATIENT RESTING QUIETLY, AWAITING AM MD ROUNDS
--- NOTE | 2016-08-12 08:26 | PN- Resident CRCU ---
Subjective HPI/CRCU Issues: Patient is a 40-year-old male with past medical history of schizophrenia presents to the ED today with a chief complaint of shortness of breath, cough, and chest congestion. He failed antimicrobial therapy as an outpatient with Velma posada. His cough worsened and had mild steaky sputum (bronchitis). He is a current smoker. In the ER his ABGs are found to have very low pH around pH of 7.2 twice and a CRCU consult is placed Current CRCU issues: 1. Acute hypoxic hypercarbic respiratory failure 2. multilobar pneumonia secondary to viral 24 Hour Events: I saw and examined the patient today morning. He is lying comfortably in the chair, able to walk around in the hallways with an oxygen cylinder. His oxygen demand reduced to 5 L today. He was able to sleep well and denies any acute events overnight. Objective Vital Signs & I&O Last 8 Hrs of Vitals and I&O: Vital signs are stable Still on 5 L of oxygen Exam General Appearance: no apparent distress, alert, awake, comfortable, obese Head: atraumatic, normal appearance Ears, Nose, Throat: normal pharynx, normal ENT inspection Neck: normal inspection, supple Respiratory: normal breath sounds, chest non-tender, no respiratory distress, wheezing Cardiovascular: regular rate/rhythm, normal peripheral pulses Gastrointestinal: normal bowel sounds, soft, non-tender Extremities: normal inspection, normal capillary refill, normal range of motion Cranial Nerves: normal hearing, normal speech, PERRL Skin: intact Nutrition Nutrition: P.O. diet Current Medications: Current Medications Sig/Paco Start time Last Medication Dose Route Stop Time Status Admin Albuterol Sulfate 3 ML Q4P PRN 08/10 1330 AC 08/12 INH 1033 Azithromycin 500 MG DAILY 08/09 1000 AC 08/12 Sodium Chloride 250 ML IV 1011 Ceftriaxone Sodium 1,000 MG DAILY 08/09 1000 AC 08/12 IV 1012 Enoxaparin Sodium 40 MG DAILY 08/09 1000 AC 08/12 SC 1012 Methylprednisolone 40 MG Q12 08/11 2200 DC 08/12 IV 1012 Ondansetron HCl 4 MG ONCE ONE 08/12 1630 DC 08/12 PO 08/12 1631 1655 Paliperidone 3 MG DAILY 08/09 1000 AC 08/12 PO 0822 Prednisone 10 MG DAILY 08/19 1000 AC PO 08/21 0959 Prednisone 20 MG DAILY 08/17 1000 AC PO 08/19 0959 Prednisone 30 MG DAILY 08/15 1000 AC PO 08/17 0959 Prednisone 40 MG DAILY 08/13 1000 CAN PO 08/21 0959 Prednisone 40 MG DAILY 08/13 1000 AC PO 08/15 0959 Prednisone 40 MG DAILY 08/12 1121 DC PO 08/13 0959 Sodium Chloride 2 SPRAY Q4P PRN 08/10 0915 AC 08/10 DINESH 0940 Antibiotics Antibiotic: azithromycin Day #: 4 IV/PO? IV CXR Findings: Low lung volumes. Possible mild left basilar opacity. Overall appearance is without significant change from 08/09/2016. ECHO Findings: CONCLUSIONS Normal left ventricular sysrolic function with mild concentric hyopertrophy. No significant valvular abnormalitiesa noted. Impression/Plan Impression/Problem List Impression: Patient is a 40 YO M with PMH significant for schizophrenia (on Invega/ Paliperidone) came to the ER with shortness of breath, productive cough with blood tinged sputum. He also had sorethroat and failed outpatient antimicrobial therapy (recieved Z-pack). Vitals in ER - Tachycardic and tachypneic with saturation of 95% on 4L oxygen. ABG at 6am shows pH of 7.24, PaCO2 of 81, PaO2 of 81, HCo3 of 34 on 6L of oxygen ABG at 9am shows pH of 7.28, PaCO2 of 70, PaO2 of 70, HCo3 of 33 A decision was made to transfer patient to ICU for closer monitoring and CRCU consult is placed. Recommendations: Plan: Acute hypercarbic hypoxic respiratory failure secondary to viral bronchitis/ multifocal pneumonia * SOB, cough with blood tinged sputum, sick contacts * No white count/normal temparature. * A single dose of 125mg IV solumedrol along with ceftriaxone and Azithromycine are given in ER. * Started on prednisone taper today 40X2, 30X2, 20X2, 10X2. * would continue ceftriaxone and azithromycin IV - day 4 * Oxygen requirement decreased to 4L today. * ProBNP, CK and Troponin are negative. * Flu vaccine given and TRC/nebs on board. * ECHO shows Normal left ventricular sysrolic function with mild concentric hyopertrophy. No significant valvular abnormalitiesa noted. * Ejection fraction of 60-65%. Suspected DVT * Asymmetric swelling of the right leg with a D-Dimer <200 * A doppler ultrasound is done to rule out DVT which was negative History of Schizophrenia * On paliperidone at home, will continue that for now. Problem List: 1. Extremity edema 2. Pneumonia 3. Dyspnea Pain Ratin Tomorrow's Labs & Rationales: ICU bundle, cbc Plan DVT/Prophylaxis: mechanical Code Status: Full Code
--- NOTE | 2016-08-12 10:26 | PN- CRCU ---
Subjective HPI/Critical Care Issues: pt seen and examined feeling better down to 5LNC no cp able to ambulate no n/v/d/c no fevers, no chills Objective Current Medications: Current Medications Sig/Paco Start time Last Medication Dose Route Stop Time Status Admin Albuterol Sulfate 3 ML Q4P PRN 08/10 1330 AC 08/12 INH 0230 Azithromycin 500 MG DAILY 08/09 1000 AC 08/12 Sodium Chloride 250 ML IV 1011 Ceftriaxone Sodium 1,000 MG DAILY 08/09 1000 AC 08/12 IV 1012 Enoxaparin Sodium 40 MG DAILY 08/09 1000 AC 08/12 SC 1012 Methylprednisolone 40 MG Q12 08/11 2200 AC 08/12 IV 1012 Paliperidone 3 MG DAILY 08/09 1000 AC 08/12 PO 0822 Sodium Chloride 2 SPRAY Q4P PRN 08/10 0915 AC 08/10 DINESH 0940 Vital Signs & I&O Last 24 Hrs of Vitals and I&O: Vital Signs Date Time Temp Pulse Resp B/P Pulse O2 O2 Flow FiO2 Ox Delivery Rate 08/12 0400 94 Nasal 5.0L Cannula 08/12 0241 93 Nasal 5.0L Cannula 08/12 0204 71 95 08/12 0000 95 Nasal 5.0L Cannula 08/12 0000 98.1 70 20 138/80 95 Nasal 5.0L Cannula 08/11 2000 94 Nasal 6.0L Cannula 08/11 1951 98 Nasal 6.0L Cannula 08/11 1600 97 Nasal 6.0L Cannula 08/11 1600 97.8 88 18 120/80 97 Nasal 6.0L Cannula 08/11 1200 95 Nasal 6.0L Cannula Intake & Output 08/12 1600 08/12 0800 08/12 0000 Intake Total 0 600 Output Total 0 Balance 0 600 Intake, Oral 0 600 Number 0 Bowel Movements Output, Urine 0 Exam Other Physical Findings: General - Alert, awake and oriented HEENT - normocephalic, atraumatic Cardiovascular - S1, S2 Lungs - rare rhonchi and diminished breath sounds bilaterally Abdomen - soft, bowel sounds positive, no tenderness Extremities - without edema or cyanosis Results Last 24 Hrs of Lab Results: Laboratory Tests 08/12/16 0515: Anion Gap 9, Estimated GFR > 60, Glucose 171 H, Calcium 8.6, Phosphorus 5.0 H, Magnesium 2.0, Total Bilirubin 0.5, AST 23, ALT 43, Albumin 3.5, CBC w Diff MAN DIFF ORDERED, RBC 5.55, MCV 86.0, MCH 27.7, RDW 13.5, MPV 8.0, Gran % 88.3 H, Lymphocytes % 9.6 L, Monocytes % 2.0, Eosinophils % 0, Basophils % 0.1, Absolute Granulocytes 10.1 H, Segmented Neutrophils 81 H, Band Neutrophils 1, Absolute Lymphocytes 1.1 L, Lymphocytes 13 L, Monocytes 4, Absolute Monocytes 0.2, Absolute Eosinophils 0, Absolute Basophils 0, Metamyelocytes 1, Platelet Estimate ADEQUATE, Polychromasia 1+, Hypochromic-Microcytic 1+, Ovalocytes FEW, Stomatocytes FEW, PUBS MCHC 32.2 L, Fld Total RBCs Counted 100 Impression/Plan Impression/Plan Impression/Plan: Impression 40-year-old man with acute hypoxemic respiratory failure secondary to pneumonia could be community-acquired versus viral. Plan - Reduce FiO2 as tolerated - Keep SPO2 above 88% - Continue antibiotics empirically for at least 7-10 day course depending on clinical outcome - TRC nebs - D/C solumedrol, begin prednisone 40mg with a 2 day taper by 10mg - DVT prophylaxis at all times TTS 35 min DG GM Code Status: Full Code
--- NOTE | 2016-08-12 12:00 | NUR ---
Patient is alert and oriented x's 3, able to follow commands and respond appropriately. Has been downgraded to a GEN MED hold but currently remains in ICU. Denies chest pain. On 5L nc, lungs wheezey and rhonchorous- O2 sat 92-95%. Productive cough noted with some bright red blood tinged sputum noted. Dr. Laura notified. He is OOB indep to toilet and showered indep today. Skin remains intact with no areas of pressure injury noted. Vitals stable. Receiving IV abx and solumedrol per order. Pts updated on POC and was called by housestaff. WIll continue to closely monitor patient.
[2016-08-12 16:00] VITALS: BP 124/80
--- NOTE | 2016-08-12 21:28 | NUR ---
RECEIVED REPORT. INTRODUCED SELF TO PT. TO LYING ON BED, TALKING ON CELL PHONE. CALM AND COOPERATIVE. DENIES PAIN. 2030 PT ASKS FOR O2 TO BE TURNED DOWN FROM 4 L TO 3. AFTER 30 MINUTES SATS REMAIN AT 94%
--- NOTE | 2016-08-12 22:28 | NUR ---
PT OOB TO CHAIR. NO DISTRESS NOTED. PT NOW AT 2 LITER NC AND SATING AT 94%
--- NOTE | 2016-08-12 22:30 | NUR ---
2229. PT SNORING LOUDLY. SATS READING 85% BUT PT HAD REMOVED. PT REMAINS AT 2L NC. SATS WHILE SLEEPING 91-93%
[2016-08-13] VITALS: BP 114/72
--- NOTE | 2016-08-13 00:33 | NUR ---
PATIENT RECEIVED ASLEEP, AWAKENED WITH VS CHECK, SKIN PINK, WARM AND DRY, DENIES ANY C/O DISCOMFORT, BREATHE SOUNDS CLEAR BILATERALLY AFTER RECENT RESPIRATORY TREATMENT, CONTINUOUS O2 SAT 93% ON 2L/MIN O2 VIA NC, ABDOMEN SOFT, +BS, PATIENT RE-SETTLED FOR SLEEP, CALL LIGHT WITHIN REACH
--- NOTE | 2016-08-13 01:44 | NUR ---
PATIENT SLEEPING SOUNDLY WITH O2 SAT DECREASING TO 87% BETWEEN BREATHES AND THEN RETURNING TO 93%- O2 INCERASED TO 3L/MIN WITH INCREASE OF O2 SAT TO 95%
--- NOTE | 2016-08-13 04:00 | NUR ---
PATIENT CONTINUES TO SLEEP SOUNDLY- ON 3L/MIN O2 VIA NC- O2 SAT MAINTAINED 90 TO 93%
[2016-08-13 05:16] LABS: ABSOLUTE BASOPHIL COUNT 0 /CUMM (0.0-0.2); ABSOLUTE EOSINOPHIL COUNT 0 /CUMM (0.0-0.7); ABSOLUTE GRANULOCYTE CT 9.2 /CUMM (1.4-6.5); ABSOLUTE LYMPH COUNT 2.5 /CUMM (1.2-3.4); BASOPHIL % 0.3 % (0.0-2.0); EOSINOPHIL % 0.1 % (0-5); GRANULOCYTE % 72.1 % (42.2-75.2); HEMATOCRIT 49.2 % (42-52); MEAN CORPUSCULAR HGB 27.4 PG (27.0-31.0); MEAN CORPUSCULAR HGB CONC 31.9 G/DL (33.0-37.0); MEAN CORPUSCULAR VOLUME 85.9 FL (80.0-94.0); MEAN PLATELET VOLUME 7.9 FL (7.4-10.4); PLATELET COUNT 241 /CUMM (130-400); RBC DISTRIBUTION WIDTH 13.4 % (11.5-14.5); RED BLOOD CELL CT 5.73 /CUMM (4.70-6.10); WHITE BLOOD CELL COUNT 12.8 /CUMM (4.8-10.8)
--- NOTE | 2016-08-13 06:27 | NUR ---
NO CHANGES IN STATUS NOTED, O2 REMAINS AT 3L/MIN WHILE PATIENT CONTINUES TO SLEEP, BREATHE SOUND REMAIN CLEAR, AWAITING AM MD ROUNDS
[2016-08-13 08:00] VITALS: BP 120/90
--- NOTE | 2016-08-13 08:23 | PN- Housestaff ---
Subjective Follow-up For: Acute hypoxic hypercarbic respiratory failure Complaints: no complaints Tele-Events Since Last Visit: No significant overnight events Subjective: I saw and examined the patient today morning. He is able to walk around the hallways. Still on 3L of oxygen, saturating well. Tried to see off the oxygen, desaturated to 90's. So placed on 1.5L oxygen now, maintaining saturations well. Review of Systems Constitutional: Reports: no symptoms, see HPI. Respiratory: Reports: cough, sputum production, wheezing. Comments: ROS negative except the above. Objective Last 24 Hrs of Vital Signs/I&O Vital Signs Date Time Temp Pulse Resp B/P Pulse O2 O2 Flow FiO2 Ox Delivery Rate 08/13 0000 93 Nasal 2.0L Cannula 08/13 0000 98.9 82 18 114/72 93 Nasal 2.0L Cannula 08/12 2319 95 Nasal 2.0L Cannula 08/12 1600 93 Nasal 4.0L Cannula 08/12 1600 98.5 94 22 124/80 93 Nasal 4.0L Cannula 08/12 1035 94 Nasal 5.0L Cannula Intake & Output 08/13 1600 08/13 0800 08/13 0000 Intake Total 125 300 Output Total 300 Balance 125 0 Intake, Oral 125 300 Output, Urine 300 Physical Exam General Appearance: Alert, Oriented X3, Cooperative, No Acute Distress Skin: No Rashes, No Breakdown HEENT: Atraumatic, PERRLA, EOMI Neck: Supple, No JVD Cardiovascular: Regular Rate, Normal S1, Normal S2, No Murmurs Lungs: Normal Air Movement, Diffuse expiratory wheezing present. Abdomen: Normal Bowel Sounds, Soft, No Tenderness Neurological: Normal Gait, Normal Speech, Strength at 5/5 X4 Ext, Normal Tone, Sensation Intact Extremities: No Clubbing, No Cyanosis, No Edema Vascular: Normal Pulses, Pulses Symmetrical Current Medications: Current Medications Sig/Paco Start time Last Medication Dose Route Stop Time Status Admin Albuterol Sulfate 3 ML Q4P PRN 08/10 1330 AC 08/12 INH 2318 Azithromycin 500 MG DAILY 08/09 1000 AC 08/12 Sodium Chloride 250 ML IV 1011 Ceftriaxone Sodium 1,000 MG DAILY 08/09 1000 AC 08/12 IV 1012 Enoxaparin Sodium 40 MG DAILY 08/09 1000 AC 08/12 SC 1012 Methylprednisolone 40 MG Q12 08/11 2200 DC 01/06 IV 1012 Ondansetron HCl 4 MG ONCE ONE 08/12 1630 DC 08/12 PO 08/12 1631 1655 Paliperidone 3 MG DAILY 08/09 1000 AC 08/12 PO 0822 Prednisone 10 MG DAILY 08/19 1000 AC PO 08/21 0959 Prednisone 20 MG DAILY 08/17 1000 AC PO 08/19 0959 Prednisone 30 MG DAILY 08/15 1000 AC PO 08/17 0959 Prednisone 40 MG DAILY 08/13 1000 CAN PO 08/21 958 Prednisone 40 MG DAILY 08/13 1000 AC PO 08/15 0859 Prednisone 40 MG DAILY 08/12 1121 DC PO 08/13 0859 Sodium Chloride 2 SPRAY Q4P PRN 08/10 0915 AC 08/10 DINESH 0940 Last 24 Hrs of Lab/Reid Results Last 24 Hrs of Labs/Mics: Laboratory Tests 08/13/16 0400: Anion Gap 11, Estimated GFR > 60, Glucose 114 H, Calcium 8.6, Phosphorus 5.0 H , Magnesium 2.2, Total Bilirubin 0.5, AST 19, ALT 43, Albumin 3.6, CBC w Diff NO MAN DIFF REQ, RBC 5.73, MCV 85.9, MCH 27.4, RDW 13.4, MPV 7.9, Gran % 72.1, Lymphocytes % 19.8 L, Monocytes % 7.7, Eosinophils % 0.1, Basophils % 0.3, Absolute Granulocytes 9.2 H, Absolute Lymphocytes 2.5, Absolute Monocytes 1.0 H, Absolute Eosinophils 0, Absolute Basophils 0, PUBS MCHC 31.9 L Lines/Diet/Fluids Lines: peripheral lines Assessment/Plan Assessment: Patient is a 40 YO M with PMH significant for schizophrenia (on Invega/ Paliperidone) came to the ER with shortness of breath, productive cough with blood tinged sputum. He also had sorethroat and failed outpatient antimicrobial therapy (recieved Z-pack). Vitals in ER - Tachycardic and tachypneic with saturation of 95% on 4L oxygen. ABG at 6am shows pH of 7.24, PaCO2 of 81, PaO2 of 81, HCo3 of 34 on 6L of oxygen ABG at 9am shows pH of 7.28, PaCO2 of 70, PaO2 of 70, HCo3 of 33 A decision was made to transfer patient to ICU for closer monitoring and CRCU consult is placed. He is doing well so far. Still on 1.5L of oxygen. Plan: Acute hypercarbic hypoxic respiratory failure secondary to viral bronchitis/ multifocal pneumonia * SOB, cough with blood tinged sputum, sick contacts * No white count/normal temparature. * A single dose of 125mg IV solumedrol along with ceftriaxone and Azithromycine are given in ER. * Will continue prednisone taper 40X2, 30X2, 20X2, 10X2. * would continue ceftriaxone and azithromycin IV - day 5 (7 days total) * Oxygen requirement decreased to 1.5L today. * ProBNP, CK and Troponin are negative. * Flu vaccine given and TRC/nebs on board. * ECHO shows Normal left ventricular sysrolic function with mild concentric hyopertrophy. No significant valvular abnormalitiesa noted. * Ejection fraction of 60-65%. Suspected DVT * Asymmetric swelling of the right leg with a D-Dimer <200 * A doppler ultrasound is done to rule out DVT which was negative History of Schizophrenia * On paliperidone at home, will continue that for now. DVT/Prophylaxis: mechanical Code Status: Full Code Problem List: 1. Pneumonia 2. Dyspnea 3. Extremity edema Pain Ratin Pain Location: n/a Pain Goal: Remain pain free Pain Plan: Tylenol prn Tomorrow's Labs & Rationales: ICU bundle cbc
--- NOTE | 2016-08-13 09:47 | PN- Pulmonary ---
Subjective HPI/Critical Care Issues: pt seen and examined down to 2lnc no events comfortable dyspnea improved afebrile ambulating wbc 12.8 can be steroid induced no n/v/d/c Objective Current Medications: Current Medications Sig/Paco Start time Last Medication Dose Route Stop Time Status Admin Albuterol Sulfate 3 ML Q4P PRN 08/10 1330 AC 08/12 INH 2318 Azithromycin 500 MG DAILY 08/09 1000 AC 08/12 Sodium Chloride 250 ML IV 1011 Ceftriaxone Sodium 1,000 MG DAILY 08/09 1000 AC 08/12 IV 1012 Enoxaparin Sodium 40 MG DAILY 08/09 1000 AC 08/12 SC 1012 Methylprednisolone 40 MG Q12 08/11 2200 DC 08/12 IV 1012 Ondansetron HCl 4 MG ONCE ONE 08/12 1630 DC 08/12 PO 08/12 1631 1655 Paliperidone 3 MG DAILY 08/09 1000 AC 08/12 PO 0822 Prednisone 10 MG DAILY 08/19 1000 AC PO 08/21 0959 Prednisone 20 MG DAILY 08/17 1000 AC PO 08/19 0959 Prednisone 30 MG DAILY 08/15 1000 AC PO 08/17 0959 Prednisone 40 MG DAILY 08/13 1000 CAN PO 08/21 0959 Prednisone 40 MG DAILY 08/13 1000 AC PO 08/15 0959 Prednisone 40 MG DAILY 08/12 1121 DC PO 08/13 0959 Sodium Chloride 2 SPRAY Q4P PRN 08/10 0915 AC 08/10 DINESH 0940 Vital Signs & I&O Last 24 Hrs of Vitals and I&O: Vital Signs Date Time Temp Pulse Resp B/P Pulse O2 O2 Flow FiO2 Ox Delivery Rate 08/13 0000 93 Nasal 2.0L Cannula 08/13 0000 98.9 82 18 114/72 93 Nasal 2.0L Cannula 08/12 2319 95 Nasal 2.0L Cannula 08/12 1600 93 Nasal 4.0L Cannula 08/12 1600 98.5 94 22 124/80 93 Nasal 4.0L Cannula 08/12 1035 94 Nasal 5.0L Cannula Intake & Output 08/13 1600 08/13 0800 08/13 0000 Intake Total 125 300 Output Total 300 Balance 125 0 Intake, Oral 125 300 Output, Urine 300 Exam Other Physical Findings: General - Alert, awake and oriented HEENT - normocephalic, atraumatic Cardiovascular - S1, S2 Lungs - rare rhonchi and diminished breath sounds bilaterally Abdomen - soft, bowel sounds positive, no tenderness Extremities - without edema or cyanosis Results Last 24 Hrs of Lab Results: Laboratory Tests 08/13/16 0400: Anion Gap 11, Estimated GFR > 60, Glucose 114 H, Calcium 8.6, Phosphorus 5.0 H , Magnesium 2.2, Total Bilirubin 0.5, AST 19, ALT 43, Albumin 3.6, CBC w Diff NO MAN DIFF REQ, RBC 5.73, MCV 85.9, MCH 27.4, RDW 13.4, MPV 7.9, Gran % 72.1, Lymphocytes % 19.8 L, Monocytes % 7.7, Eosinophils % 0.1, Basophils % 0.3, Absolute Granulocytes 9.2 H, Absolute Lymphocytes 2.5, Absolute Monocytes 1.0 H, Absolute Eosinophils 0, Absolute Basophils 0, PUBS MCHC 31.9 L Impression/Plan Impression/Plan Impression/Plan: Impression 40-year-old man with acute hypoxemic respiratory failure secondary to pneumonia could be community-acquired versus viral. Plan - Reduce FiO2 as tolerated - Keep SPO2 above 88% - Continue antibiotics empirically for at least 7-10 day course depending on clinical outcome - TRC nebs - begin prednisone 40mg with a 2 day taper by 10mg - DVT prophylaxis at all times DG GM and if off o2 can be discharged within 24 hrs
[2016-08-13 16:00] VITALS: BP 120/70
[2016-08-13 21:02] VITALS: BP 138/76
[2016-08-14 08:18] VITALS: BP 142/78
[2016-08-14 10:00] LABS: ABSOLUTE BASOPHIL COUNT 0.1 /CUMM (0.0-0.2); ABSOLUTE EOSINOPHIL COUNT 0.1 /CUMM (0.0-0.7); ABSOLUTE GRANULOCYTE CT 7.9 /CUMM (1.4-6.5); ABSOLUTE LYMPH COUNT 3.4 /CUMM (1.2-3.4); ABSOLUTE MONOCYTE COUNT 0.5 /CUMM (0.10-0.60); BASOPHIL % 0.4 % (0.0-2.0); GRANULOCYTE % 66.4 % (42.2-75.2); HEMATOCRIT 51.3 % (42-52); MEAN CORPUSCULAR HGB 27.4 PG (27.0-31.0); MEAN CORPUSCULAR HGB CONC 32.6 G/DL (33.0-37.0); MEAN CORPUSCULAR VOLUME 84.1 FL (80.0-94.0); MEAN PLATELET VOLUME 8.1 FL (7.4-10.4); PLATELET COUNT 270 /CUMM (130-400); RBC DISTRIBUTION WIDTH 13.5 % (11.5-14.5); RED BLOOD CELL CT 6.09 /CUMM (4.70-6.10); WHITE BLOOD CELL COUNT 11.9 /CUMM (4.8-10.8)
--- NOTE | 2016-08-14 10:57 | PN- Pulmonary ---
Subjective HPI/Critical Care Issues: pt seen and examined transferred out of icu 92% on RA hemodynamically stable no n/v/d/c no mac Objective Current Medications: Current Medications Sig/Paco Start time Last Medication Dose Route Stop Time Status Admin Albuterol Sulfate 3 ML BID 08/13 2200 AC 08/14 INH 1010 Albuterol Sulfate 3 ML Q4P PRN 08/10 1330 DC 08/13 INH 1845 Azithromycin 500 MG DAILY 08/09 1000 AC 08/14 Sodium Chloride 250 ML IV 1046 Ceftriaxone Sodium 1,000 MG DAILY 08/09 1000 AC 08/14 IV 1042 Enoxaparin Sodium 40 MG DAILY 08/09 1000 AC 08/12 SC 1012 Paliperidone 3 MG DAILY 08/09 1000 AC 08/14 PO 1038 Prednisone 10 MG DAILY 08/19 1000 AC PO 08/21 0959 Prednisone 20 MG DAILY 08/17 1000 AC PO 08/19 0959 Prednisone 30 MG DAILY 08/15 1000 AC PO 08/17 0959 Prednisone 40 MG DAILY 08/13 1000 AC 08/14 PO 08/15 0959 1038 Sodium Chloride 2 SPRAY Q4P PRN 08/10 0915 AC 08/10 DINESH 0940 Vital Signs & I&O Last 24 Hrs of Vitals and I&O: Vital Signs Date Time Temp Pulse Resp B/P Pulse O2 O2 Flow FiO2 Ox Delivery Rate 08/14 1010 92 Room Air 08/14 0818 142/78 08/14 0757 98.3 87 20 96 Room Air 08/14 0000 93 Room Air 08/13 2102 97.9 100 30 138/76 93 Nasal Cannula 08/13 1839 93 Room Air 08/13 1600 97.0 70 18 120/70 08/13 1600 97 Room Air Intake & Output 08/14 1600 08/14 0800 08/14 0000 Intake Total 120 400 Output Total Balance 120 400 Intake, Oral 120 400 Exam Other Physical Findings: General - Alert, awake and oriented HEENT - normocephalic, atraumatic Cardiovascular - S1, S2 Lungs - rare rhonchi and diminished breath sounds bilaterally Abdomen - soft, bowel sounds positive, no tenderness Extremities - without edema or cyanosis Results Last 24 Hrs of Lab Results: Laboratory Tests 08/14/16 0835: Anion Gap 17 H, Estimated GFR > 60, BUN/Creatinine Ratio 20.0, CBC w Diff NO MAN DIFF REQ, RBC 6.09, MCV 84.1, MCH 27.4, RDW 13.5, MPV 8.1, Gran % 66.4, Lymphocytes % 28.2, Monocytes % 4.0, Eosinophils % 1.0, Basophils % 0.4, Absolute Granulocytes 7.9 H, Absolute Lymphocytes 3.4, Absolute Monocytes 0.5, Absolute Eosinophils 0.1, Absolute Basophils 0.1, PUBS MCHC 32.6 L Impression/Plan Impression/Plan Impression/Plan: Impression 40-year-old man with acute hypoxemic respiratory failure secondary to pneumonia could be community-acquired versus viral. Plan - Reduce FiO2 as tolerated - Keep SPO2 above 88% - Continue antibiotics empirically for at least 7-10 day course depending on clinical outcome - TRC nebs - taper prednisone as ordered by 10mg - DVT prophylaxis at all times DC planning - please walk patient if requires o2 (<88% with exertion) then send home with o2 and I will see him in office post discharge for follow up imaging and o2 monitoring.
[2016-08-14] MEDS ORDERED: PREDNISONE10 M2 PO ×2 (14:18→14:31)
[2016-08-14] MEDS ORDERED: AZITHROMYCIN500 M3 PO (14:18)
--- NOTE | 2016-08-14 14:33 | Patient Discharge Instructions ---
Discharge Instructions General Discharge Information Special Instructions: please follow up with your PCP with in one week after discharge please follow up with Dr. Thomas ybarra with in one week after discharge Acute Coronary Syndrome Inclusion Criteria At DC or during hospital stay patient has or had the following: ACS DIAGNOSIS No Discharge Core Measures Meds if any: Prescribed or Continued at Discharge Meds if any: NOT Prescribed or Continued at Discharge Congestive Heart Failure Inclusion Criteria At DC or during hospital stay patient has or had the following: CHF DIAGNOSIS No Discharge Core Measures Meds if any: Prescribed or Continued at Discharge Meds if any: NOT Prescribed or Continued at Discharge Cerebrovascular accident Inclusion Criteria At DC or during hospital stay patient has or had the following: CVA/TIA Diagnosis No Discharge Core Measures Meds if any: Prescribed or Continued at Discharge Meds if any: NOT Prescribed or Continued at Discharge Venous thromboembolism Inclusion Criteria VTE Diagnosis No VTE Type Deep Venous Thrombosis VTE Confirmed by (Test) EXT BILATERAL VENOUS DOPP Discharge Core Measures - Per Current guidelines, there needs to be overlap - treatment for the first 5 days of Warfarin therapy. - If discharged on Warfarin prior to 5 days of - overlap therapy, the patient will need to be - assessed for post discharge needs including - *Post discharge parental anticoagulation - *Warfarin and/or parental anticoagulation education - *Follow up date to check INR post discharge At least 5 days overlap therapy as Inpatient Yes Meds if any: Prescribed or Continued at Discharge Note: Overlap Therapy is Warfarin and Anticoagulant Meds if any: NOT Prescribed or Continued at Discharge
--- NOTE | 2016-08-26 23:22 | Discharge Summary ---
See Addendum Visit Information Visit Dates Admission Date: 08/09/16 Discharge Date: 08/14/16 Hospital Course Course Attending Physician: GENE ARAGON MD Primary Care Physician: MAGALYS REA MD Consulting Request: Consulting Specialty: Critical Care Consulting Physician: Dr.Spivak Navarro Reason for Consult: CRCU management Hospital Course: Patient is a 40 YO M with PMH significant for schizophrenia (on Invega/ Paliperidone) came to the ER with shortness of breath, productive cough with blood tinged sputum. He also had sorethroat and failed outpatient antimicrobial therapy (recieved Z-pack). Vitals in ER - Tachycardic and tachypneic with saturation of 95% on 4L oxygen. At the time of admission ABG at 6am shows pH of 7.24, PaCO2 of 81, PaO2 of 81, HCo3 of 34 on 6L of oxygen ABG at 9am shows pH of 7.28, PaCO2 of 70, PaO2 of 70, HCo3 of 33 A decision was made to transfer patient to ICU for closer monitoring and CRCU consult is placed. The following issues are addressed in ICU Acute hypercarbic hypoxic respiratory failure secondary to viral bronchitis/ multifocal pneumonia As patient was very acidotic although placed on BiPAP in ER for several hours, he was transfered to ICU. He was better by afternoon with continuous BiPAP. However his oxygen demand is very high for several days. He was place on IV ceftriaxone and azithromycin for a total of 7days. He also received a 125mg IV solumedrol in ER followed by a steroid taper. At the time of discharge he was still on 40mg prednisone. TRC and nebs are provided in hospital. His ProBNP, CK and Troponin are negative. Flu vaccine given. ECHO shows Normal left ventricular sysrolic function with mild concentric hyopertrophy. No significant valvular abnormalitiesa noted. Ejection fraction of 60-65%. Suspected DVT Asymmetric swelling of the right leg with a D-Dimer <200 was noted at admission. However, doppler ultrasound was negative History of Schizophrenia On paliperidone at home, we continued that in the hospital. DVT/Prophylaxis: mechanical Code Status: Full Code Allergies: Coded Allergies: No Known Allergies (04/21/16) Disposition Summary Disposition Principal Diagnosis: Acute hypoxic respiratory failure Additional Diagnosis: Schizophrenia Discharge Disposition: home or self care Discharge Instructions General Discharge Information Code Status: Full Code Patient's Diet: Regular diet Patient's Activity: Activity as tolerated Follow-Up Instructions/Appts: Please f/u with Your PCP in a aweek Please f/u with in a week Medications at Discharge Discharge Medications: Stop taking the following medications: Azithromycin (Azithromycin) 250 MG TABLET ORAL As Directed Qty = 6 Continue taking these medications: Paliperidone (Invega) 3 MG TAB.ER.24 1 Tablet ORAL DAILY Qty = 30 Comments: Last Taken: 08/14/16 Time: 10:30 AM Start taking the following new medications: Prednisone (Prednisone) 10 MG TABLET 40 Milligram ORAL DAILY Days = 1 No Refills Instructions: please take 4 tablets for 1 day 08/15/16 Comments: Last Taken: 08/14/16 Time: 10 AM Prednisone (Prednisone) 10 MG TABLET 30 Milligram ORAL DAILY Days = 3 No Refills Instructions: please take 3 tablets on 08/16/16 please take 3 tablets on 08/17/16 please take 3 tablets on 08/18/16 Prednisone (Prednisone) 10 MG TABLET 20 Milligram ORAL DAILY Days = 3 No Refills Instructions: please take 2 tablets on 08/19/16 please take 2 tablets on 08/20/16 please take 2 tablets on 08/21/16 Prednisone (Prednisone) 10 MG TABLET 10 Milligram ORAL DAILY Days = 3 No Refills Instructions: please take 1 tablet on 08/22/16 please take 1 tablet on 08/23/16 please take 1 tablet on 08/24/16 then stop Azithromycin (Azithromycin) 500 MG TABLET 1 Tablet ORAL DAILY Qty = 5 No Refills Comments: Last Taken: 08/14/16 Time: 10 AM Copies To: MAGALYS REA MD; GENE ARAGON MD Attending Review Statement Documenting Attending: GENE ARAGON MD
== END 2016-08-14 14:50 | DRG 193 ==
LOC: ERH 23:46 → 1NO 08-09 01:29 → CRI 08-09 01:29 → ERHI 08-09 01:29 → CRI 08-09 11:42 → 1NO 08-13 20:47
PROVIDERS: Internal Medicine; Internal Medicine Infectious Disease; Physician Assistant; ADMIT Internal Medicine
PROC: 5A09357 Assistance with Respiratory Ventilation, Less than 24 Consecutive Hours, Continuous Positive Airway Pressure (ICD-10-PCS; principal; 2016-08-09)
DX: J18.9 Pneumonia, unspecified organism (principal); J96.02 Acute respiratory failure with hypercapnia; J96.01 Acute respiratory failure with hypoxia; Z68.42 Body mass index [BMI] 45.0-49.9, adult; Z72.0 Tobacco use; F20.9 Schizophrenia, unspecified; E66.01 Morbid (severe) obesity due to excess calories
CPT/HCPCS: 1NSP; CCU; 36415; 80307; 82436; 87040; 87070; 87449; 87450; 87804; 87804-59; 93005; 93010; 93306; 96374; 96375; 99291; J0456; J0696; J1650; J2920; J2930; J3101; J7040; J7512; Q2036

== ENCOUNTER 2017-01-23 12:18 | Inpatient (IN) | payer OTHER ==
[~2017-01-23] VITALS: Ht 172.7 cm; Wt 142.4 kg
[~2017-01-23 12:18] MED LIST changes: +AZITHROMYCIN250 M1 PO; +AZITHROMYCIN500 M3 PO; +PREDNISONE10 M2 PO
--- NOTE | 2017-01-23 12:21 | NUR ---
SPO2 88% AT RESIDENTIAL PROPERTY CONSULTANT
--- NOTE | 2017-01-23 12:29 | NUR ---
PT TO ED FOR SOB "FOR A FEW WEEKS." SEEN AT [facility] FOR 1 WEEK AGO FOR SAME. +NAUSEA. PT REPORTS INTERMITTENT +R SIDED CP RADIATING TO THROAT. PT AWAKE/ALERT. O2 SAT 89% ON RA.
--- NOTE | 2017-01-23 12:51 | NUR ---
LABS DRAWN AND SENT SST, LAV, BLUE AND ROBLES SENT
[2017-01-23 13:00] LABS: ABSOLUTE BASOPHIL COUNT 0 /CUMM (0.0-0.2); ABSOLUTE EOSINOPHIL COUNT 0.2 /CUMM (0.0-0.7); ABSOLUTE GRANULOCYTE CT 4.9 /CUMM (1.4-6.5); ABSOLUTE LYMPH COUNT 1.8 /CUMM (1.2-3.4); ABSOLUTE MONOCYTE COUNT 0.5 /CUMM (0.10-0.60); BASOPHIL % 0.4 % (0.0-2.0); EOSINOPHIL % 2.3 % (0-5); GRANULOCYTE % 66.3 % (42.2-75.2); HEMATOCRIT 48.3 % (42-52); MEAN CORPUSCULAR HGB 26.1 PG (27.0-31.0); MEAN CORPUSCULAR HGB CONC 31.9 G/DL (33.0-37.0); MEAN PLATELET VOLUME 7.8 FL (7.4-10.4); PLATELET COUNT 214 /CUMM (130-400); RBC DISTRIBUTION WIDTH 14.5 % (11.5-14.5); RED BLOOD CELL CT 5.89 /CUMM (4.70-6.10); WHITE BLOOD CELL COUNT 7.4 /CUMM (4.8-10.8)
--- NOTE | 2017-01-23 13:19 | NUR ---
INFORMED WAITING PROVIDED. PT SITTING UP ON CHAIR IN WAITING AREA. AWAKE/ALERT WITH EASY WOB, CONVERSING WITH .
--- NOTE | 2017-01-23 13:38 | ED DYSPNEA/ASTHMA COMPLAINT ---
History of Present Illness General Chief Complaint: Dyspnea (COPD, CHF, Other) Stated Complaint: "PER PT SOB, SPO2 WAS 84 AT HOME" Source: patient Exam Limitations: no limitations Vital Signs & Intake/Output Vital Signs & Intake/Output Vital Signs Date Time Temp Pulse Resp B/P B/P Pulse O2 O2 Flow FiO2 Mean Ox Delivery Rate 01/23 1900 Nasal 4.0L Cannula 01/23 1744 Nasal 4.0L Cannula 01/23 1739 97.8 107 20 136/80 93 Nasal 4.0L Cannula 01/23 1626 97.5 103 20 126/80 93 Nasal 4.0L Cannula 01/23 1545 96 Nasal 2.0L Cannula 01/23 1432 97.8 100 20 136/85 93 Nasal 3.0L Cannula 01/23 1430 20 82 Room Air 01/23 1408 92 01/23 1225 98.4 90 22 144/99 89 Room Air 01/23 1221 88 Room Air Allergies Coded Allergies: No Known Allergies (04/21/16) Reconcile Medications Glipizide 5 MG TABLET 1 TAB PO BID DM (Reported) Paliperidone (Invega) 3 MG TAB.ER.24 1 TAB PO QAM SCHIZOPHRENIA (Reported) Triage Note: PT TO ED FOR SOB "FOR A FEW WEEKS." SEEN AT [facility] FOR 1 WEEK AGO FOR SAME. +NAUSEA. PT REPORTS INTERMITTENT +R SIDED CP RADIATING TO THROAT. PT AWAKE/ALERT. O2 SAT 89% ON RA. Triage Nurses Notes Reviewed? yes Onset: Gradual Duration: week(s): (1) Timing: recent history Severity: moderate Activities at Onset: none Prior Episodes/Possible Cause: occasional episodes HPI: Patient is a 41-year-old male with history of diabetes presenting to the emergency department with chief complaint of shortness of breath has been going on for the past one week. He was seen at another facility one week ago was given a breathing treatment and sent home with inhalers. He reports that it has been getting worse and not better. Reports intermittent any productive cough, started as yellow sputum and now is clear. Reports left-sided "lung" pain. Pain is worse with breathing. Remote history of smoking, quit approximately 7 months ago. No palpitations. They have been checking his oxygen saturation at home because they have a low pulse ox and has been ranging between 85% and 90% on room air. No history of oxygen use. Denies abdominal pain. No urinary frequency urgency or dysuria. Denies any fevers or chills. Has been eating and drinking without difficulty. Spoke with his primary care physician whose his chest that he go back to the emergency for Reevaluation. Symptoms are worse with exertion. (JUAN MORRISON) Past History Travel History Traveled to [place] past 21 day No Medical History Any Pertinent Medical History? see below for history Neurological: NONE EENT: NONE Cardiovascular: NONE Respiratory: NONE Gastrointestinal: NONE Hepatic: NONE Renal: NONE Musculoskeletal: NONE Psychiatric: schizophrenia Endocrine: NIDDM Blood Disorders: NONE Cancer(s): NONE PERSONAL DEVELOPMENT MENTOR/Reproductive: NONE History of MRSA: No History of VRE: No History of CDIFF: No Surgical History Surgical History: non-contributory Psychosocial History Who do you live with Spouse Services at Home None What is your primary language Armenian Tobacco Use: Quit >30 days ago Family History Family History, If Any: Relation not specified for: *No pertinent family history Hx Contributory? No (JUAN MORRISON) Review of Systems Review of Systems Constitutional: Reports: no symptoms. Comments Review of systems: See HPI, All other systems negative. Constitutional, no chills fever or weight loss HEENT: No visual changes no sore throat Cardiovascular: No palpitation , orthopnea or ankle swelling Skin, no jaundice no rashes Respiratory: No hemoptysis GI: No nausea no vomiting : No dysuria No hematuria Muscle skeletal: no back pain, no neck pain, Neurologic: No numbness no confusion no mac Psych: No stress anxiety or depression,. Heme/endocrine: No bruising no bleeding no polyuria or polydipsia Immunology: No splenectomy or history of AIDS (JUAN MORRISON) Physical Exam Physical Exam General Appearance: alert, awake, obese Respiratory: diminished Comments: Well-developed well-nourished person in no acute distress HEENT: Pupils equally round and reactive to light and accommodation. Nose is atraumatic. External auditory canal and Tympanic membranes clear. Pharynx normal. No swelling or edema. Neck: Supple, no lymphadenopathy, normal range of motion without pain or tenderness Back: Nontender Cardiovascular: Regular rate and rhythms no murmurs rubs or gallops, normal JVP Respiratory: Chest nontender. No respiratory distress.br significantly diminished eath sounds clear to auscultation bilaterally, able to appreciate scant wheezing on the right lower lobe Abdomen: Soft, obese, nontender nondistended, no appreciable organomegaly. Normal bowel sounds. No ascites. No rebound or guarding. Extremity: Pedal pulses are 2+ bilaterally. No calf tenderness to palpation bilaterally. No edema appreciated in the lower extremities bilaterally. Full range of motion of upper and lower extremities without difficulty. Neuro: Alert oriented x3, motor sensory normal Skin: No appreciable rash on exposed skin, skin is warm and dry. Psych: Mood and affect is normal, memory and judgment is normal. Core Measures ACS in differential dx? Yes Severe Sepsis Present: No Septic Shock Present: No (SIRIA KHAN,JUAN) Progress Differential Diagnosis: COPD exacerbation, pneumonia, bronchitis, pulmonary embolus, ACS Plan of Care: Orders Procedure Date/time Status Regular Diet 01/23 D Active RT: Evaluation 01/23 1916 Active THERAPIST ORDERS 01/23 1900 Complete Vital Signs 01/23 1743 Active Teach/Educate 01/23 1743 Active Pain Treatment and Response 01/23 1743 Active Nutritional Intake, Monitor 01/23 1743 Active Isolation 01/23 1743 Active Intake & Output 01/23 1743 Active Patient Care Conference 01/23 1743 Active Activity/Ambulation 01/23 1743 Active FingerStick- Glucose 01/23 1558 Active TRC EVALUATION (GEN) 01/23 1557 Complete OXYGEN SETUP (GEN) 01/23 1557 Active Pathway - chart 01/23 1557 Active House Staff 01/23 1557 Active Patient Data 01/23 1557 Active Code Status 01/23 1557 Active ED Holding Orders 01/23 1553 Active Admit to inpatient 01/23 1553 Active Vital Signs 01/23 1553 Active Code Status 01/23 1553 Complete Patient Data 01/23 1548 Active MIXED VENOUS BLOOD GAS (GEN) 01/23 1402 Complete Add-on Test (ER Only) 01/23 1351 Active ARTERIAL BLOOD GAS (GEN) 01/23 1340 Complete Add-on Test (ER Only) 01/23 1340 Active Telemetry/Voip Network Technician 01/23 1340 Complete PARTIAL THROMBOPLASTIN TIME 01/23 1235 Complete PROTHROMBIN TIME 01/23 1235 Complete D-DIMER 01/23 1235 Complete B-TYPE NATRIURETIC PEP (BNP) 01/23 1235 Complete TROPONIN LEVEL 01/23 1230 Complete MAGNESIUM 01/23 1230 Complete COMPREHENSIVE METABOLIC PANEL 01/23 1230 Complete CBC WITHOUT DIFFERENTIAL 01/23 1230 Complete EKG 01/23 1230 Active VTE Mechanical Prophylaxis 01/23 UNK Active Vital Signs 01/23 UNK Active MISTAKE 01/23 UNK Active Intake & Output 01/23 UNK Active Hemoccult 01/23 UNK Active Current Medications Sig/Paco Start time Last Medication Dose Stop Time Status Admin Methylprednisolone 40 MG DAILY 01/24 1000 AC (Solumedrol) Paliperidone 3 MG DAILY 01/24 1000 AC (Invega) Insulin Aspart 0 TIDAC 01/24 0800 AC (NovoLOG) Azithromycin 500 MG DAILY 01/23 2143 AC (Zithromax) Sodium Chloride 250 ML (Normal Saline 0.9%) Albuterol Sulfate 3 ML Q4P PRN 01/23 1930 AC (Proventil) Magnesium Sulfate 1 GM Q2H 01/23 0000 CAN Dextrose/Water 250 ML 01/23 2359 (Dextrose 5%) Magnesium Sulfate 1 GM Q2H 01/23 0000 NR Dextrose/Water 100 ML 01/23 2359 (Dextrose 5%) Laboratory Tests 01/23/17 1354: Bicarbonate Actual 35 H, Mixed VBG pH 7.33, Mixed VBG pCO2 67 H, Mixed VBG O2 Saturation 30 L, P-50 (Temp Corrected) N, Carboxyhemoglobin 0.9 L, O2 Concentration % .21, Temperature 98.4, O2 Delivery Method RA, Phlebotomy Draw Site RIGHT RADIAL 01/23/17 1235: Anion Gap 9, Estimated GFR > 60, BUN/Creatinine Ratio 16.7, Glucose 116 H, Calcium 8.7, Magnesium 1.9, Total Bilirubin 0.5, AST 42, ALT 61, Alkaline Phosphatase 66, Troponin I 0.04, Hdg-H-Dbgxzxzvypu Pept 31.7, Total Protein 6.9, Albumin 3.9, Globulin 3.0, Albumin/Globulin Ratio 1.3, PT 12.0, INR 1.14, APTT 35, D-Dimer High Sensitivty < 200, CBC w Diff NO MAN DIFF REQ, RBC 5.89, MCV 82.0, MCH 26.1 L, RDW 14.5, MPV 7.8, Gran % 66.3, Lymphocytes % 23.9, Monocytes % 7.1, Eosinophils % 2.3, Basophils % 0.4, Absolute Granulocytes 4.9, Absolute Lymphocytes 1.8, Absolute Monocytes 0.5, Absolute Eosinophils 0.2, Absolute Basophils 0, PUBS MCHC 31.9 L Diagnostic Imaging: Viewed by Me: Radiology Read. Discussed w/RAD: Radiology Read. Radiology Impression: PATIENT: NOEL GRAY PRESENT AGE: 41 PATIENT ACCOUNT NO: [id number] : 77 LOCATION: [facility] ORDERING PHYSICIAN: JUAN KHAN SERVICE DATE: 01/23/17 EXAM TYPE: RAD - XRY-CHEST XRAY, PA AND LATERAL EXAMINATION: CHEST 2 VIEWS CLINICAL INFORMATION: Short of breath. Assess for pneumonia. COMPARISON: 08/11/2016. TECHNIQUE: PA and lateral views of the chest were obtained. FINDINGS: The lungs are hypoexpanded. No focal infiltrate, effusion, edema, or pneumothorax. Cardiac and mediastinal silhouettes are within normal limits for technique. No acute bony abnormality seen IMPRESSION: Hypoexpanded but no focal airspace disease. DICTATED BY: YEMI MIMS MD Initial ED EKG: NSR Prior EKG: unchanged Comments: 01/23/2017 2:20:02 PM on arrival patient no acute distress, oxygen saturation around 89% on room air. Patient has significantly diminished lung sounds bilaterally. We will treat patient with DuoNeb treatment, patient will go for chest x-ray, CBC, CMP, d-dimer, troponin ordered. Patient has no lower extremity edema. I do not hear any rhonchi. Unlikely CHF although we will add on BNP as well. We will see if there is any pleural effusions on x-ray. Suspecting COPD exacerbation. 01/23/2017 2:20:59 PM patient feeling minimally improved after one breathing treatment. Lung sounds are audible bilaterally at this time. Patient will go on a continuous neb for 30 minutes, IV Solu-Medrol ordered. After treatment we will perform an ambulatory oxygen saturation to assess 02. At this time d-dimer is negative. X-rays negative for pneumonia. BNP is negative. Unlikely blood clot or pulmonary and was at this time, no signs of CHF on x-ray or blood work. Likely COPD exacerbation. If oxygen saturation can remain above 90% with ambulation after treatment patient will be safely discharged home with steroid taper, antibiotics for likely exacerbation area. EKG is unchanged from previous. 01/23/2017 3:44:19 PM01/23/2017 3:44:21 PM on reevaluation patient still reporting shortness of breath. Oxygen saturation below 85% just sitting there. Comes up with 3-4 L nasal cannula to 95% on room air. Patient will be admitted for COPD exacerbation. d/w Kathryn Gardner MD and she agrees this plan. (JUAN MORRISON) Departure Departure Time of Disposition: 1544 Disposition: STILL A PATIENT Condition: Stable Clinical Impression Primary Impression: COPD exacerbation Secondary Impressions: Hypoxia Referrals: FINESSE FARRAR MD (PCP/Family) Departure Forms: Customer Survey General Discharge Information Admission Note Spoke With: BARRINGTON REYES MD Documentation of Exam: Documentation of any treatments & extenuating circumstances including Concerns Regarding Discharge (functional status, medication knowledge or non-compliance, living conditions, etc.) that warrant an admission rather than observation: Patient requiring supplemental oxygen, pulmonology consultation, may require BiPAP if symptoms do not improve, repeat ABG, continuous nebulizer treatments, IV steroids. Discharge at this time would be medically harmful. (JUAN MORRISON) PA/SENIOR TRIAL ATTORNEY Co-Sign Statement Statement: ED Attending supervision documentation- [] I saw and evaluated the patient. I have also reviewed all the pertinent lab results and diagnostic results. I agree with the findings and the plan of care as documented in the PA's/SENIOR TRIAL ATTORNEY's documentation. [X] I have reviewed the ED Record and agree with the PA's/SENIOR TRIAL ATTORNEY's documentation. [] Additions or exceptions (if any) to the PAs/SENIOR TRIAL ATTORNEY's note and plan are summarized below: [] (ROSALINA LANE,KATHRYN) Critical Care Note Critical Care Note Critical Care Time: 30-74 min (JUAN MORRISON)
--- NOTE | 2017-01-23 13:55 | NUR ---
RT AT BEDSIDE FOR TX.
[2017-01-23 13:59] LABS: PTT 35 SEC (25-37)
--- NOTE | 2017-01-23 14:03 | RADIOLOGY REPORT ---
EXAMINATION: CHEST 2 VIEWS CLINICAL INFORMATION: Short of breath. Assess for pneumonia. COMPARISON: 08/11/2016. TECHNIQUE: PA and lateral views of the chest were obtained. FINDINGS: The lungs are hypoexpanded. No focal infiltrate, effusion, edema, or pneumothorax. Cardiac and mediastinal silhouettes are within normal limits for technique. No acute bony abnormality seen IMPRESSION: Hypoexpanded but no focal airspace disease.
--- NOTE | 2017-01-23 14:12 | NUR ---
ERIN BEVERLY TO BEDSIDE FOR REEVAL.
--- NOTE | 2017-01-23 14:32 | NUR ---
O2SAT DROPPED TO 82% ON RA AFTER DUONEB TX. PT PLACED ON 02 NC 3L WITH O2SAT IMPROVEMENT 93%, ERIN BEVERLY MADE AWARE.
[2017-01-23] MEDS ORDERED: GLIPIZIDE5 M2 PO (15:41)
[2017-01-23] MEDS ORDERED: INVEGA3 MG PO (15:42)
--- NOTE | 2017-01-23 16:14 | NUR ---
RESP AT BEDSIDE FOR DUONEB. PT MEDICATED WITH SOLUMEDROL PER EMAR.
--- NOTE | 2017-01-23 16:21 | History & Physical ---
ROSSY LANE,KATYA 01/23/17 1621: General Information and HPI MD Statement: I have seen and personally examined NOEL BLOOM and documented this H&P. The patient is a 41 year old M who presented with a patient stated chief complaint of [shortness of breath]. Source of Information: patient, family, old records, EMS Exam Limitations: no limitations History of Present Illness: Patient is a 41-year-old male with past medical history significant for schizophrenia (paliperidone), type 2 diabetes (on oral hypoglycemics) presented to the ER with progressive worsening of dyspnea for the past 1 week. Patient was admitted this August in ICU for pneumonia causing acute hypoxic hypercarbic respiratory failure requiring BiPAP. After discharge patient never followed up with any lead burner helper, never underwent PFTs. However a week he had developed flulike symptoms, went to [facility] ER where he was given nebulization therapy and discharged without any oral medications. He noted to have occasional cough with yellowish phlegm production after this event. Last week (Monday) he had an appointment, when his pulse ox noted to be in 80s, suggested to go to ER. His has a pulse ox with her occasionally used to measure his saturations at home - usually stays around 90s. Today morning he experienced worsening of his dyspnea, chest pain radiating to throat and desaturating to 80s on room air. His daughter was sick at home. He denies any fevers, chills, dizziness, lightheadedness, chest pain, abdominal pain. Scheduled for a appointment with lead burner helper coming February 03 in [place]. Allergies/Medications Allergies: Coded Allergies: No Known Allergies (04/21/16) Home Med list Glipizide 5 MG TABLET 1 TAB PO BID DM (Reported) Paliperidone (Invega) 3 MG TAB.ER.24 1 TAB PO QAM SCHIZOPHRENIA (Reported) Compliance With Home Meds: UNKNOWN Past History Travel History Traveled to [place] past 21 day No Medical History Neurological: NONE EENT: NONE Cardiovascular: NONE Respiratory: NONE Gastrointestinal: NONE Hepatic: NONE Renal: NONE Musculoskeletal: NONE Psychiatric: schizophrenia Endocrine: NIDDM Blood Disorders: NONE Cancer(s): NONE CAUSTIC LOADER/Reproductive: NONE History of MRSA: No History of VRE: No History of CDIFF: No Surgical History Surgical History: non-contributory Past Family/Social History Family History Relations & Conditions if any Relation not specified for: *No pertinent family history Psychosocial History Where do you live? Home Who Do You Live With? spouse, child Services at Home: None Primary Language: Tamazight Smoking Status: Former Smoker Functional Ability ADLs Independent: dressing, eating, toileting, bathing. Ambulation: independent IADLs Independent: shopping, housework, finances, food prep, telephone, transportation , medication admin. Review of Systems Review of Systems Constitutional: Reports: see HPI, malaise, weakness. EENTM: Reports: see HPI. Cardiovascular: Reports: see HPI. Respiratory: Reports: cough, short of breath, sputum production. GI: Reports: see HPI. Genitourinary: Reports: see HPI. Musculoskeletal: Reports: see HPI. Skin: Reports: see HPI. Exam & Diagnostic Data Last 24 Hrs of Vital Signs/I&O Vital Signs Date Time Temp Pulse Resp B/P B/P Pulse O2 O2 Flow FiO2 Mean Ox Delivery Rate 01/23 1900 Nasal 4.0L Cannula 01/23 1744 Nasal 4.0L Cannula 01/23 1739 97.8 107 20 136/80 93 Nasal 4.0L Cannula 01/23 1626 97.5 103 20 126/80 93 Nasal 4.0L Cannula 01/23 1545 96 Nasal 2.0L Cannula 01/23 1432 97.8 100 20 136/85 93 Nasal 3.0L Cannula 01/23 1430 20 82 Room Air 01/23 1408 92 01/23 1225 98.4 90 22 144/99 89 Room Air 01/23 1221 88 Room Air Intake & Output 01/23 1600 01/23 0800 01/23 0000 Intake Total Output Total Balance Patient 136.078 kg Weight Weight Reported by Patient Measurement Method Physical Exam General Appearance Alert, Oriented X3, Cooperative, No Acute Distress Skin No Rashes, No Breakdown HEENT Atraumatic, PERRLA, EOMI Neck Supple Cardiovascular Normal S1, Normal S2 Lungs poor air entry, divj-[id number]-flhqxyhe wheezing Abdomen Normal Bowel Sounds, Soft, No Tenderness Neurological Normal Speech, Strength at 5/5 X4 Ext, Normal Tone, Sensation Intact Extremities No Clubbing, No Cyanosis Vascular Normal Pulses, Pulses Symmetrical Last 24 Hrs of Labs/Reid: Laboratory Tests 01/23/17 1354: Bicarbonate Actual 35 H, Mixed VBG pH 7.33, Mixed VBG pCO2 67 H, Mixed VBG O2 Saturation 30 L, P-50 (Temp Corrected) N, Carboxyhemoglobin 0.9 L, O2 Concentration % .21, Temperature 98.4, O2 Delivery Method RA, Phlebotomy Draw Site RIGHT RADIAL 01/23/17 1235: Anion Gap 9, Estimated GFR > 60, BUN/Creatinine Ratio 16.7, Glucose 116 H, Calcium 8.7, Magnesium 1.9, Total Bilirubin 0.5, AST 42, ALT 61, Alkaline Phosphatase 66, Troponin I 0.04, Cal-T-Cknvandlkzx Pept 31.7, Total Protein 6.9, Albumin 3.9, Globulin 3.0, Albumin/Globulin Ratio 1.3, PT 12.0, INR 1.14, APTT 35, D-Dimer High Sensitivty < 200, CBC w Diff NO MAN DIFF REQ, RBC 5.89, MCV 82.0, MCH 26.1 L, RDW 14.5, MPV 7.8, Gran % 66.3, Lymphocytes % 23.9, Monocytes % 7.1, Eosinophils % 2.3, Basophils % 0.4, Absolute Granulocytes 4.9, Absolute Lymphocytes 1.8, Absolute Monocytes 0.5, Absolute Eosinophils 0.2, Absolute Basophils 0, PUBS MCHC 31.9 L Assessment/Plan Assessment: Patient is a 11-year-old male with past medical history of recent ICU admission for multifocal pneumonia, former smoker, schizophrenia presented with progressive worsening of dyspnea. Associated with occasional cough with yellowish phlegm production. In the ER he desaturated to 88% on room air. Admitted to general medicine floor Acute hypoxic respiratory failure secondary to COPD exacerbation * Received IV Solu-Medrol 125 mg in the ED * Started on IV Solu-Medrol 40 mg every 8 and azithromycin IV * TRC/nebs * On the consolidation in the a.m. * Currently on 4 L oxygen after respiratory therapy - started on BiPAP if needed Type 2 diabetes * Patient was recently started on glipizide, stopped taking it as he started to develop hypoglycemic episodes * Insulin sliding scale, Accu-Cheks Schizophrenia Patient is on paliperidone prior to admission We will continue DVT prophylaxis * Alps CODE STATUS * Full code As Ranked By This Provider Problem List: 1. COPD exacerbation 2. Hypoxia Core Measures/Miscellaneous Acute Coronary Syndrome ACS Diagnosis: No Cerebrovascular Accident CVA/TIA Diagnosis: No VTE (View Protocol) VTE Risk Factors: Immobility, paresis No Mech VTE prophylaxis d/t: No contraindications No VTE Pharm Prophylaxis d/t: No contraindications VTE Diagnosis: No VTE Type: NONE VTE Confirmed by (Test): NONE Sepsis (View Protocol) Severe Sepsis Present: No Septic Shock Septic Shock Present: No Miscellaneous Documentation Attending Case Discussed With: BARRINGTON REYES MD Primary Care Physician: FINESSE FARRAR MD Patient sees these Specialists No one Level of Patient Care: General Medicine BARBARADEBRA 01/23/17 1632: Resident Review Statement Resident Statement: examined this patient, discussed with corporate development intern, agreed with corporate development intern Other Findings: Mr. Bloom is a 41-year-old gentleman with past medical history significant for diabetes and schizophrenia who presented to the hospital with chief complaint of dyspnea for the past few days. The patient was diagnosed with pneumonia this August since then he reports that his respiratory function is not back to his baseline. He experiences occasional dyspnea and wheezing. Reports having eczematous lesions in his hands in adolescence resolved spontaneously. Denies any history of COPD, asthma, seasonal allergies. He measured his oxygen saturation level at home which was in 80s and therefore presented to the hospital. He was seen at [facility] for same complaint last week and was referred to a lead burner helper; was in process to make an appointment. He reports history of sick contact (his daughter) denies fevers, chills, dizziness, lightheadedness, nausea, vomiting, chest pain, abdominal pain. Upon presentation to the ED had oxygen saturation of 88% on room air, saturating 93% on 4 L per nasal cannula oxygen at the time of our interview. Physical exam is significant for moderate respiratory distress, expiratory wheezes, cardiology exam sinus rhythm without murmurs, no lower extremity edema. No evidence of leukocytosis or left shift noted Chest x-ray is negative for any pathology. EKG shows sinus rhythm rate [address] -T wave abnormalities, QTC 414. Assessment: #Acute hypoxemic resipratiory failure #Dyspnea: no h/o COPD, likely 2/2 reactive airway disease vs COPD exacerbation #DM #Schizophrenia Plan: * VS per protocol * O2 supplement * Will administer IV steroids and IV azithro * TRC/nebs * Pulm consult * Monitor fingerstick glucose * Will hold FURNITURE LUMBER PRODUCTION WORKER oral diabetic medication, maintain the patient on INS SS. * C/W FURNITURE LUMBER PRODUCTION WORKER paliperidone * DVT PPX W/SC lovenox * Pt is full code BARRINGTON REYES MD 01/23/172102: Core Measures/Miscellaneous Congestive Heart Failure CHF Diagnosis: No Attending MD Review Statement Attending Statement Attending MD Statement: examined this patient, discuss w/resident/PA/RD MANAGER, agreed w/resident/PA/RD MANAGER, discussed with family, reviewed EMR data (avail), reviewed images, amended to note Attending Assessment/Plan: The patient is a 41 yo male with h/o DM2 and h/o pneumonia (08/23) that required ICU for hypoxic respiratory failure, probable reactive airway disease who presented in the ED with c/o increased dyspnea that has been progressive over 1 week. He notes intermitted production of some yellowish sputum. No fever or chills. Prior smoker (quit 7 months ago). Noted pulse of of 84% at home (88% in ED) and was found to have significantly dimensioned BS and diffuse wheeze on exam. In the ED he was treated with aerosol and IV Medrol. Was scheduled to see a pulmonary physician in [place]. Has seen Dr. Guzman here last admission. He denies any chest pain or palpitations. Physical Exam: VS: T 98.4, P 90, R 22, BP 144/99, PO 88% RA-92% on oxygen (was 84% at home on RA) HEENT: eyes- PERRLA, EOMI dean- moist mucosa, no lesions NecK: supple, no adenopathy Chest: moderate to severe diminished BS diffusely with moderate wheezing and occasional rhonchi that diminishes post cough Cor: RRR, nl S1, S2 w/o murm Abd: BS+, soft, NT Ext: no edema, pulses 2+ Neuro: alert & oriented x 3, non-focal exam Labs/Test- as above Impression/Plan: #Asthma (?COPD) Exacerbation- in former smoker with h/o pneumonia earlier this year. No fever, some minimal yellowish sputum. Plan: Admit to medical floor. IV Medrol as per protocol. TDP aerosol IV Zithromax. Pulmonary consult- Dr. Guzman. Will need eventual PFT"s as OP. #Acute Hypoxic Respiratory Failure- documented pulse of of 84% on RA at home and 88% on RA in ED. Plan: Will give nasal O2 support and follow pulse ox. #DM2- on glipizide at home? Suspect steroids will cause increased glucose levels. Plan: Verify home medication. Check glucoscans and sliding scale insulin coverage. #Psych- patient med rec indicates antipsychotic? Plan: Will check old records and medication and continue any psych meds.
--- NOTE | 2017-01-23 16:28 | NUR ---
HOUSE STAFF AT BEDSIDE FOR PT EVAL.
--- NOTE | 2017-01-23 16:34 | NUR ---
PT ADMITTED TO ROOM 210-1
--- NOTE | 2017-01-23 17:10 | NUR ---
REPORT GIVEN TO KEEGAN HINLKE TO 2NB DISTRIBUTION BOOKED
--- NOTE | 2017-01-23 17:25 | Admission Certification ---
Admission Certification Certification Statement - As attending physician, I certify that at the time of - admission, based on clinical presentation, severity of - symptoms, need for further diagnostic testing and - therapeutic interventions, and risk of adverse outcomes - without in-hospital treatment, in my clinical assessment, - this patient requires an acute hospital stay for a minimum - of two nights or longer. I have also considered psychsocial - factors such as support system, advanced age, financial - issues, cognitive issues, and failed out-patient treatments, - past re-admission history, safety of patient, and lack of - compliance as applicable. Specific rationale supporting this admission is: The patient presents with exacerbation of obstructive lung disease, acute hypoxic respiratory failure. Needs admission for close respiratory monitoring, oxygen support and IV Medrol, Zithromax. Pulmonary consult Dr. Guzman.
[2017-01-23 17:39] VITALS: BP 136/80
--- NOTE | 2017-01-23 17:51 | PN- Student ---
Subjective Subjective: History given mainly by partner and patient, himself. CC: shortness of breath HPI: Patient presents today for increased shortness of breath that began about a week ago. Patient feels short of breath even when getting up from a chair. He had a common cold last week and had taken Mucinex which helped temporarily. Patient went to [place] ER last week for the shortness of breath and was treated with nebulizer treatments with no relief. Last , he had a doctor 's appointment to which the doctor measured a low pulse oximetry and suggested to go to the ER and to see a metallurgical analyst. Patient still has a cough and he states that in the morning the phlegm is "dark", with no blood, and becomes physical design engineer as the day progresses. Patient was admitted last July for "double pneumonia" and partner thinks that he has been short of breath ever since. She also has a pulse ox at home and measures his. Yesterday, she measured a reading of 84%. Patient reports nausea, sinus pressure, palpitations, dyspnea on exertion. Patient denies headache, chest pain, abdominal pain, vomiting, diarrhea, chills, night sweats. PMHx: Illnesses/conditions: diabetes mellitus (diagnosed last year), schizophrenia Medications: Glipizide (was switched from Metformin a couple months ago due to side effects including hypoglycemia), Paliperidone Allergies: Haldol No surgical history. Has been hospitalized "a few times" for schizophrenia Clinicians: sees a PCP, therapist for schizophrenia, going to see a metallurgical analyst at the end of this month Family Hx: Mother - schizophrenia, DM, HTN Father - schizophrenia, DM, NE (late 60s), pacemaker Social Hx: Lives with partner and 3 yo child. Lives in home with mold in bathroom and carpeting throughout the whole house. Denies ETOH use, smoked cigarettes on and off from age 18 and stopped this past June after hospitalization for pneumonia. Denies any physical activity. ROS: see HPI Current Medications Sig/Paco Start time Last Medication Dose Route Stop Time Status Admin Albuterol Sulfate 3 ML ONCE ONE 01/23 1600 DC 01/23 INH 01/23 1601 1550 Albuterol Sulfate 3 ML ONCE ONE 01/23 1430 DC 01/23 INH 01/23 1431 1422 Albuterol Sulfate 3 ML ONCE ONE 01/23 1430 DC 01/23 INH 01/23 1431 1422 Albuterol Sulfate 3 ML ONCE ONE 01/23 1430 DC 01/23 INH 01/23 1431 1422 Albuterol Sulfate 3 ML ONCE ONE 01/23 1345 DC 01/23 INH 01/23 1346 1401 Ipratropium [place] 2.5 ML ONCE ONE 01/23 1600 DC 01/23 INH 01/23 1601 1550 Ipratropium [place] 2.5 ML ONCE ONE 01/23 1345 DC 01/23 INH 01/23 1346 1400 Magnesium Sulfate 2 GM ONCE ONE 01/23 1600 DC IV 01/23 1601 Magnesium Sulfate 1 GM Q2H 01/23 0000 CAN Dextrose/Water 250 ML IV 01/23 2359 Magnesium Sulfate 1 GM Q2H 01/23 0000 NR Dextrose/Water 100 ML IV 01/23 2359 Methylprednisolone 0 .STK-MED ONE 01/23 1522 DC .ROUTE Methylprednisolone 125 MG ONCE ONE 01/23 1430 DC 01/23 IV 01/23 1431 1615 Objective Objective: Physical Exam: General: alert and oriented x3. no acute distress Head: NC/AT Lungs: rhonchi bilaterally. resonance with no dullness upon percussion. no accessory muscle use. Heart: tachycardic. S1 and S2 present. no murmurs, gallops, rubs Abdomen: normoactive breath sounds. no pain upon palpation Extremities: no edema, no erythema, no clubbing, capillary refill <2 seconds Lymphatics: no lymphadenopathies CXR (01/23/17): Hypoexpanded but no focal airspace disease. Vital Signs Date Time Temp Pulse Resp B/P B/P Pulse O2 O2 Flow FiO2 Mean Ox Delivery Rate 01/23 1744 Nasal 4.0L Cannula 01/23 1739 97.8 107 20 136/80 93 Nasal 4.0L Cannula 01/23 1626 97.5 103 20 126/80 93 Nasal 4.0L Cannula 01/23 1545 96 Nasal 2.0L Cannula 01/23 1432 97.8 100 20 136/85 93 Nasal 3.0L Cannula 01/23 1430 20 82 Room Air 01/23 1408 92 01/23 1225 98.4 90 22 144/99 89 Room Air 01/23 1221 88 Room Air Intake & Output 01/23 1600 01/23 0800 01/23 0000 Intake Total Output Total Balance Patient 300 lb Weight Weight Reported by Patient Measurement Method Assessment/Plan Assessment: Assessment and Plan: 41 yo male with PMHx of diabetes and schizophrenia presented today for worsening shortness of breath of 1 week. PE is significant for increased movement of air post nebulizer treatments. Patient is afebrile (97.5), tachycardic (103), with no leukocytosis. Upon admission pulse ox was 88% on room air and is now 93% on nasal cannula 4.0L. CXR is unremarkable. 1. Shortness of breath * Differential includes: COPD exacerbation, secondary to schizophrenia, obesity/ deconditioning, interstitial lung disease, pneumonia, CHF. * Monitor vitals. * Continue nebulizer treatments as needed. Continue methylprednisone and taper. * Perform PFTs for diagnosis of COPD. * Can consider obtaining echocardiogram to r/o cardiac causes of shortness of breath. * Consult pulmonology. 2. Diabetes Mellitus * Upon admission, glucose was 116. * Monitor glucose levels * Consider counseling on lifestyle modifications. 3. Schizophrenia * Continue Paliperidone.
--- NOTE | 2017-01-23 18:44 | NUR ---
PT ARRIVED TO FLOOR AROUND 1800 WITH AT BEDSIDE. ALERT AND ORIENTED. PT ON 4L OF 02 SATING 93%. PT DENIES ANY SOB. LUNGS DIMINISHED. PT APPEARS IN NO RESPIRATORY DISTRESS, BREATHS EVEN AND STEADY. VSS. CALL [facility] WITHIN REACH.
[2017-01-23 23:04] VITALS: BP 128/88
[2017-01-24 06:30] VITALS: BP 127/60
--- NOTE | 2017-01-24 08:27 | PN- Student ---
Subjective Subjective: Patient was seen and examined this morning. Patient is resting comfortably and feels better from yesterday morning. He was able to sleep through the night. He states he has no difficulty breathing and that his cough has decreased in frequency but is still coughing up phlegm that is yellow in color. Patient reports a headache this morning. Denies chest pain, nausea, vomiting, diarrhea, abdominal pain, palpitations, chills, night sweats. Current Medications Sig/Paco Start time Last Medication Dose Route Stop Time Status Admin Albuterol Sulfate 3 ML Q4P PRN 01/23 1930 AC 01/23 INH 2231 Albuterol Sulfate 3 ML ONCE ONE 01/23 1600 DC 01/23 INH 01/23 1601 1550 Albuterol Sulfate 3 ML ONCE ONE 01/23 1430 DC 01/23 INH 01/23 1431 1422 Albuterol Sulfate 3 ML ONCE ONE 01/23 1430 DC 01/23 INH 01/23 1431 1422 Albuterol Sulfate 3 ML ONCE ONE 01/23 1430 DC 01/23 INH 01/23 1431 1422 Albuterol Sulfate 3 ML ONCE ONE 01/23 1345 DC 01/23 INH 01/23 1346 1401 Azithromycin 500 MG 2200 01/23 2200 AC 01/24 Sodium Chloride 250 ML IV 0030 Azithromycin 500 MG DAILY 01/23 2143 DC Sodium Chloride 250 ML IV Enoxaparin Sodium 40 MG DAILY 01/24 1000 AC SC Insulin Aspart 0 TIDAC 01/24 0800 AC SC Ipratropium [place] 2.5 ML ONCE ONE 01/23 1600 DC 01/23 INH 01/23 1601 1550 Ipratropium [place] 2.5 ML ONCE ONE 01/23 1345 DC 01/23 INH 01/23 1346 1400 Magnesium Sulfate 2 GM ONCE ONE 01/23 1600 DC IV 01/23 1601 Magnesium Sulfate 1 GM Q2H 01/23 0000 CAN Dextrose/Water 250 ML IV 01/23 2359 Magnesium Sulfate 1 GM Q2H 01/23 0000 DC Dextrose/Water 100 ML IV 01/23 2359 Methylprednisolone 40 MG DAILY 01/24 1000 AC IV Methylprednisolone 0 .STK-MED ONE 01/23 1522 DC .ROUTE Methylprednisolone 125 MG ONCE ONE 01/23 1430 DC 01/23 IV 01/23 1431 1615 Paliperidone 3 MG DAILY 01/24 1000 AC PO Objective Objective: Physical Exam: General: alert and oriented x3. no acute distress. obese Skin: no rashes, no pallor, jaundice, or cyanosis Head: NC/AT Lungs: clear to auscultation Heart: regular rhythm. tachycardic. no murmurs, gallops, rubs Abdomen: normoactive bowel sounds Extremities: no edema, no erythema, no clubbing Vital Signs Date Time Temp Pulse Resp B/P B/P Pulse O2 O2 Flow FiO2 Mean Ox Delivery Rate 01/24 0630 97.7 112 20 127/60 93 Nasal 4.0L Cannula 01/24 0000 Nasal 4.0L Cannula 01/23 2304 98.1 109 20 128/88 92 Nasal 4.0L Cannula 01/23 1900 Nasal 4.0L Cannula 01/23 1744 Nasal 4.0L Cannula 01/23 1739 97.8 107 20 136/80 93 Nasal 4.0L Cannula 01/23 1626 97.5 103 20 126/80 93 Nasal 4.0L Cannula 01/23 1545 96 Nasal 2.0L Cannula 01/23 1432 97.8 100 20 136/85 93 Nasal 3.0L Cannula 01/23 1430 20 82 Room Air 01/23 1408 92 01/23 1225 98.4 90 22 144/99 89 Room Air 01/23 1221 88 Room Air Intake & Output 01/24 1600 01/24 0800 01/24 0000 Intake Total 250 Output Total Balance 250 Intake, IV 250 Patient 314 lb Weight Results Results: Laboratory Tests 01/23/17 1354: Bicarbonate Actual 35 H, Mixed VBG pH 7.33, Mixed VBG pCO2 67 H, Mixed VBG O2 Saturation 30 L, P-50 (Temp Corrected) N, Carboxyhemoglobin 0.9 L, O2 Concentration % .21, Temperature 98.4, O2 Delivery Method RA, Phlebotomy Draw Site RIGHT RADIAL 01/23/17 1235: Anion Gap 9, Estimated GFR > 60, BUN/Creatinine Ratio 16.7, Glucose 116 H, Calcium 8.7, Magnesium 1.9, Total Bilirubin 0.5, AST 42, ALT 61, Alkaline Phosphatase 66, Troponin I 0.04, Gdj-Q-Oxaffnseeql Pept 31.7, Total Protein 6.9, Albumin 3.9, Globulin 3.0, Albumin/Globulin Ratio 1.3, PT 12.0, INR 1.14, APTT 35, D-Dimer High Sensitivty < 200, CBC w Diff NO MAN DIFF REQ, RBC 5.89, MCV 82.0, MCH 26.1 L, RDW 14.5, MPV 7.8, Gran % 66.3, Lymphocytes % 23.9, Monocytes % 7.1, Eosinophils % 2.3, Basophils % 0.4, Absolute Granulocytes 4.9, Absolute Lymphocytes 1.8, Absolute Monocytes 0.5, Absolute Eosinophils 0.2, Absolute Basophils 0, PUBS MCHC 31.9 L Assessment/Plan Assessment: Assessment and Plan: 41 yo male with PMHx of diabetes and schizophrenia presented yesterday for worsening shortness of breath of 1 week. PE is unremarkable. Patient is afebrile (97.7), tachycardic (112), with no leukocytosis. Upon admission pulse ox was 88% on room air and is now 93% on nasal cannula 4.0L. CXR is unremarkable. 1. Dyspnea * Differential includes: COPD exacerbation, secondary to schizophrenia, obesity/ deconditioning, interstitial lung disease, pneumonia, CHF. * Monitor vitals. * Continue nebulizer treatments as needed. Continue methylprednisolone and taper. * Perform PFTs to determine severity and management of COPD. Can camp head counselor patient on importance of continuation of smoking cessation, regular physical activity, annual influenza vaccination, pneumococcal vaccination. Can consider short- acting beta agonist upon discharge PRN as well as other medications (LABA, anticholinergic, glucocorticoid) based on GOLD guidelines for disease category severity. * Can consider obtaining echocardiogram to r/o cardiac causes of dyspnea. * Pulmonology consult this morning. 2. Tachycardia * Upon admission, HR was 90 and has been trending upward. This morning, HR was 112. * Differential includes: secondary to schizophrenia, side effect of Paliperidone , pulmonary embolism. * Monitor HR. * Patient will have CT angiogram to r/o PE due to sxs of dyspnea and tachycardia. 3. Diabetes Mellitus * Upon admission, glucose was 116. Patient was given insulin aspart. * Monitor glucose levels. * Consider counseling on lifestyle modifications. 4. Schizophrenia * Continue Paliperidone.
[2017-01-24 09:30] VITALS: BP 123/71
--- NOTE | 2017-01-24 10:49 | PN- Housestaff ---
[address],[facility] 01/24/17 1048: Subjective Follow-up For: Bronchiolitis Acute hypoxic hypercarbic respiratory failure Subjective: I saw examined the patient today morning Still reports difficulty in treating with occasional cough and phlegm production. Reports sleeping well without any overnight events. He denies any chest pain, nausea, vomiting. Still on 4 L of oxygen Review of Systems Constitutional: Reports: see HPI. Comments: ROS negative except above Objective Last 24 Hrs of Vital Signs/I&O Vital Signs Date Time Temp Pulse Resp B/P B/P Pulse O2 O2 Flow FiO2 Mean Ox Delivery Rate 01/24 0832 93 Nasal 4.0L Cannula 01/24 0800 92 Nasal 4.0L Cannula 01/24 0630 97.7 112 20 127/60 93 Nasal 4.0L Cannula 01/24 0000 Nasal 4.0L Cannula 01/23 2304 98.1 109 20 128/88 92 Nasal 4.0L Cannula 01/23 1900 Nasal 4.0L Cannula 01/23 1744 Nasal 4.0L Cannula 01/23 1739 97.8 107 20 136/80 93 Nasal 4.0L Cannula 01/23 1626 97.5 103 20 126/80 93 Nasal 4.0L Cannula 01/23 1545 96 Nasal 2.0L Cannula 01/23 1432 97.8 100 20 136/85 93 Nasal 3.0L Cannula 01/23 1430 20 82 Room Air 01/23 1408 92 01/23 1225 98.4 90 22 144/99 89 Room Air 01/23 1221 88 Room Air Intake & Output 01/24 1600 01/24 0800 01/24 0000 Intake Total 250 Output Total Balance 250 Intake, IV 250 Patient 142.428 kg Weight Physical Exam General Appearance: Alert, Oriented X3, Cooperative, Mild Distress Skin: No Rashes, No Breakdown HEENT: Atraumatic, PERRLA, EOMI Neck: Supple Cardiovascular: Normal S1, Normal S2 Lungs: decreased breath sounds at bases, [id number] wheezing Abdomen: Normal Bowel Sounds, No Tenderness, distended Neurological: Strength at 5/5 X4 Ext, Normal Tone, Sensation Intact, Cranial Nerves 3-12 NL, Reflexes 2+ Extremities: No Clubbing, No Cyanosis, No Edema Current Medications: Current Medications Sig/Paco Start time Last Medication Dose Route Stop Time Status Admin Albuterol Sulfate 3 ML Q4P PRN 01/23 1930 AC 01/24 INH 1620 Azithromycin 500 MG 2200 01/23 2200 AC 01/24 Sodium Chloride 250 ML IV 0030 Azithromycin 500 MG DAILY 01/23 2143 DC Sodium Chloride 250 ML IV Enoxaparin Sodium 40 MG DAILY 01/24 1000 AC SC Furosemide 40 MG DAILY 01/25 1000 AC IV Insulin Aspart 0 TIDAC 01/24 0800 AC 01/24 SC 1741 Magnesium Sulfate 1 GM Q2H 01/23 0000 DC Dextrose/Water 100 ML IV 01/23 2359 Methylprednisolone 40 MG DAILY 01/24 1000 DC IV Methylprednisolone 40 MG Q8 01/24 0855 DC 01/24 IV 1415 Paliperidone 3 MG DAILY 01/24 1000 AC 01/24 PO 0920 Prednisone 30 MG DAILY 01/25 1000 AC PO Assessment/Plan Assessment: Patient is a 41-year-old male with past medical history of recent ICU admission for multifocal pneumonia, former smoker, schizophrenia presented with progressive worsening of dyspnea. Associated with occasional cough with yellowish phlegm production. In the ER he desaturated to 88% on room air. Admitted to general medicine floor Acute hypoxic hypercarbic respiratory failure 2/2 ETIENNE vs obesity hypoventilation syndrome * Discontinue steroids today and start on oral prednisone for a quick taper. * start on nocturnal BiPAP tonight with 07/12 can be increased to 18/01. * Continue azithromycin 500mg for 5days. * TRC/nebs * Needs outpatient sleep study * started on IV lasix 40mg * CTA - ruled out PE Type 2 diabetes * Patient was recently started on glipizide, stopped taking it as he started to develop hypoglycemic episodes * Insulin sliding scale, Accu-Cheks Schizophrenia * Patient was on paliperidone prior to admission * We will continue Morbid obesity * BMI of 47 * Never evaluated by a sales account director in the past. * need sleep study in near future. * In case of bicarbonate > 40 - we will consider starting Diamox. * Nocturnal pulse oximetry DVT prophylaxis * Alps CODE STATUS * Full code Problem List: 1. Dyspnea 2. Hypoxia 3. Obesity hypoventilation syndrome 4. Obstructive sleep apnea Pain Ratin Pain Location: n/a Pain Goal: Pain 4 or less Pain Plan: Tylenol prn Tomorrow's Labs & Rationales: BEP to monitor electrolytes, Cr, bicarbonate VANI THOMAS MD 01/24/17 1131: Attending MD Review Statement Attending Statement Attending MD Statement: examined this patient, discuss w/resident/PA/DIRECTOR OF TECHNOLOGY, agreed w/resident/PA/DIRECTOR OF TECHNOLOGY, reviewed EMR data (avail) Attending Assessment/Plan: 41M PMH schizophrenia, former 16 year smoker presenting with 4 days of shortness of breath, productive cough, and hypoxia. Very short of breath yesterday, improving today. Bilateral rhonchi on exam. Hypoxic 86% on room air on admission, requiring 4L NC at this time. Reports that he feels better. Cultures NGTD. 1. Acute exacerbation of COPD 2. Acute hypoxemic respiratory failure 3. Shortness of breath Plan - continue on general medicine - Continue Solumedrol - follow pulmonary recommendations - Continue Azithromycin - Nebulizer treatments round the clock - Continue home medications - DVT PPx
--- NOTE | 2017-01-24 11:30 | NUR ---
LATE ENTRY: PT OFF THE FLOOR TO CT SCAN. PENDING RETURN TO FLOOR. REPORT GIVEN TO KEEGAN HINKLE WHO WILL RESUME CARE FOR THE PT. SAFETY MAINTAINED.
--- NOTE | 2017-01-24 13:28 | NUR ---
AT 1130 PRIOR TO GOING TO Project [facility] PT APPEARED SLEEPY BUT AROUSABLE. 02 CHECKED, PT SATING 86% ON 4L OF 02. PT DENIES ANY SOB/CHEST PAIN. PT PUT ON 5L OF 02 SATING 92%. MD MENG NOTIFIED OF INCREASE IN OXYGENATION NEEDS.
[2017-01-24 13:32] VITALS: BP 130/68
--- NOTE | 2017-01-24 13:45 | CT SCAN REPORT ---
EXAMINATION: CT ANGIOGRAM CHEST CLINICAL INFORMATION: 41-year-old presenting with hypoxia and chest pain. COMPARISON: PA and lateral chest x-ray performed on 01/23/2017. TECHNIQUE: Multiple axial images were obtained through the chest after the administration of 71 mL of Optiray 350 intravenous contrast. Images were reviewed on a dedicated 3-D workstation. Thick slab multiplanar reconstructed images were generated. DLP: 545.6 mGy-cm FINDINGS: The study is limited by the patient's habitus and motion artifact. The pulmonary arteries are adequately opacified and are normal in caliber. No central, lobar, or segmental filling defects are seen to suggest pulmonary emboli. The lungs are clear except for mild bibasilar atelectatic changes. Specifically, there is no evidence of a pneumothorax. The tracheobronchial tree is patent. The thyroid gland is unremarkable. The thoracic aorta is normal in caliber. There is no evidence of mediastinal or hilar adenopathy. There is no pleural or pericardial effusion. There is no chest wall mass. No supraclavicular or axillary adenopathy is identified. The visualized abdominal structures are within normal limits. Degenerative spondylitic changes are present in the dorsal spine. No focal osteolytic or osteoblastic changes are seen. IMPRESSION: No evidence of pulmonary embolic disease or other acute cardiopulmonary process.
--- NOTE | 2017-01-24 18:22 | Cons- Pulmonary ---
General Information and HPI Consulting Request Date of Consult: 01/24/17 Requested By: Medical team History of Present Illness: Patient is a 41-year-old male with past medical history significant for schizophrenia (paliperidone), type 2 diabetes (on oral hypoglycemics) presented to the ER with progressive worsening of dyspnea for the past 1 week. Patient was admitted this August in ICU for pneumonia causing acute hypoxic hypercarbic respiratory failure requiring BiPAP. After discharge patient never followed up with any ldr rn, never underwent PFTs. However a week he had developed flulike symptoms, went to [place] [facility] where he was given nebulization therapy and discharged without any oral medications. He noted to have occasional cough with yellowish phlegm production after this event. Last week (Monday) he had an appointment, when his pulse ox noted to be in 80s, suggested to go to ER. His has a pulse ox with her occasionally used to measure his saturations at home - usually stays around 90s. Today morning he experienced worsening of his dyspnea, chest pain radiating to throat and desaturating to 80s on room air. His daughter was sick at home. He denies any fevers, chills, dizziness, lightheadedness, chest pain, abdominal pain. Scheduled for a appointment with ldr rn coming February 03 in [place]. Review of Systems Review of Systems Constitutional: Reports: see HPI, malaise, weakness. EENTM: Reports: see HPI. Cardiovascular: Reports: see HPI. Respiratory: Reports: cough, short of breath, sputum production. GI: Reports: see HPI. Genitourinary: Reports: see HPI. Musculoskeletal: Reports: see HPI. Skin: Reports: see HPI. Allergies/Medications Allergies: Coded Allergies: No Known Allergies (04/21/16) Home Med List: Glipizide 5 MG TABLET 1 TAB PO BID DM (Reported) Paliperidone (Invega) 3 MG TAB.ER.24 1 TAB PO QAM SCHIZOPHRENIA (Reported) Review of Systems Review of Systems Constitutional: Denies: see HPI. Past History Travel History Traveled to [place] past 21 day No Medical History Blood Transfusion Hx: No EENT: NONE Cardiovascular: NONE Respiratory: pneumonia Gastrointestinal: NONE Hepatic: NONE Renal: NONE Musculoskeletal: NONE Psychiatric: schizophrenia Endocrine: diabetes Blood Disorders: NONE Cancer(s): NONE MINI LAB OPERATOR/Reproductive: NONE Surgical History Surgical History: non-contributory Family History Relations & Conditions If Any: Relation not specified for: *No pertinent family history Psychosocial History Where Do You Live? Home Who Do You Live With? spouse, child Services at Home: None Primary Language: Lithuanian Smoking Status: Former Smoker Functional Ability ADLs Independent: dressing, eating, toileting, bathing. Ambulation: independent IADLs Independent: shopping, housework, finances, food prep, telephone, transportation , medication admin. Exam & Diagnostic Data Last 24 Hrs of Vital Signs/I&O Vital Signs Date Time Temp Pulse Resp B/P B/P Pulse O2 O2 Flow FiO2 Mean Ox Delivery Rate 01/24 1621 92 Nasal 4.0L Cannula 01/24 1600 Nasal 4.0L Cannula 01/24 1332 98.1 100 20 130/68 94 Nasal 5.0L Cannula 01/24 0930 97.3 99 18 123/71 92 Nasal 4.0L Cannula 01/24 0832 93 Nasal 4.0L Cannula 01/24 0800 92 Nasal 4.0L Cannula 01/24 0630 97.7 112 20 127/60 93 Nasal 4.0L Cannula 01/24 0000 Nasal 4.0L Cannula 01/23 2304 98.1 109 20 128/88 92 Nasal 4.0L Cannula 01/23 1900 Nasal 4.0L Cannula Intake & Output 01/24 1600 01/24 0800 01/24 0000 Intake Total 420 250 Output Total Balance 420 250 Intake, IV 250 Intake, Oral 420 Patient 314 lb Weight Last 48 Hrs of Labs/Reid: Laboratory Tests 01/23/17 1354: Bicarbonate Actual 35 H, Mixed VBG pH 7.33, Mixed VBG pCO2 67 H, Mixed VBG O2 Saturation 30 L, P-50 (Temp Corrected) N, Carboxyhemoglobin 0.9 L, O2 Concentration % .21, Temperature 98.4, O2 Delivery Method RA, Phlebotomy Draw Site RIGHT RADIAL 01/23/17 1235: Anion Gap 9, Estimated GFR > 60, BUN/Creatinine Ratio 16.7, Glucose 116 H, Calcium 8.7, Magnesium 1.9, Total Bilirubin 0.5, AST 42, ALT 61, Alkaline Phosphatase 66, Troponin I 0.04, Cwk-L-Mnnhlhscjdt Pept 31.7, Total Protein 6.9, Albumin 3.9, Globulin 3.0, Albumin/Globulin Ratio 1.3, PT 12.0, INR 1.14, APTT 35, D-Dimer High Sensitivty < 200, CBC w Diff NO MAN DIFF REQ, RBC 5.89, MCV 82.0, MCH 26.1 L, RDW 14.5, MPV 7.8, Gran % 66.3, Lymphocytes % 23.9, Monocytes % 7.1, Eosinophils % 2.3, Basophils % 0.4, Absolute Granulocytes 4.9, Absolute Lymphocytes 1.8, Absolute Monocytes 0.5, Absolute Eosinophils 0.2, Absolute Basophils 0, PUBS MCHC 31.9 L Assessment/Plan Impression/Plan: PATIENT: NOEL GRAY The pulmonary arteries are adequately opacified and are normal in caliber. No central, lobar, or segmental filling defects are seen to suggest pulmonary emboli. The lungs are clear except for mild bibasilar atelectatic changes. Specifically, there is no evidence of a pneumothorax. The tracheobronchial tree is patent. The thyroid gland is unremarkable. The thoracic aorta is normal in caliber. There is no evidence of mediastinal or hilar adenopathy. There is no pleural or pericardial effusion. There is no chest wall mass. No supraclavicular or axillary adenopathy is identified. The visualized abdominal structures are within normal limits. Degenerative spondylitic changes are present in the dorsal spine. No focal osteolytic or osteoblastic changes are seen. No evidence of pulmonary embolic disease or other acute cardiopulmonary process. Physical Exam General Appearance Alert, Oriented X3, Cooperative, No Acute Distress Skin No Rashes, No Breakdown HEENT Atraumatic, PERRLA, EOMI Neck Supple Cardiovascular Normal S1, Normal S2 Lungs poor air entry, [id number] wheezing Abdomen Normal Bowel Sounds, Soft, No Tenderness Neurological Normal Speech, Strength at 5/5 X4 Ext, Normal Tone, Sensation Intact Extremities No Clubbing, No Cyanosis Vascular Normal Pulses, Pulses Symmetrical IMPRESSION This a gentleman with schizophrenia morbid obesity with previous history of chronic hypercarbic respiratory failure has Acute on chronic hypercarbic and hypoxemic respiratory failure related to profound obstructive sleep apnea and obesity hypoventilation syndrome with pulmonary hypertension. Cor pulmonale related to severe obstructive sleep apnea Chronic hypercarbia related to obesity hypoventilation syndrome No clinical evidence suggestive of significant emphysema patient may have asthma with chronic bronchitis with remote history of smoking but does not actively smoke at this present time Morbid obesity Schizophrenia RECOMMENDATION Intravenous Lasix 40 mg daily in the morning Discontinue intravenous Solu-Medrol By mouth prednisone 30 mg and wean off in 4 days Azithromycin 500 milligrams daily for 5 days He potassium more than 4 If bicarbonate goes more than 40 replace Lasix with Diamox for Diamox can be given by mouth Weight loss therapy advised Please ask respiratory to do nocturnal oximetry Patient might qualify for bedtime BiPAP. Please asked respiratory to start BiPAP tonight 07/12 and then slowly can be increased to 14/6 Outpatient sleep study Consult Acknowledgment - Thank you for your consult request.
[2017-01-24 23:18] VITALS: BP 124/62
--- NOTE | 2017-01-25 00:25 | NUR ---
PT TACHY BETWEEN 111-[address] JUNO DURHAM #[id number] MADE AWARE. ALSO PT WOULD LIKE SOMETHING FOR SLEEP.
[2017-01-25 06:30] VITALS: BP 128/78
--- NOTE | 2017-01-25 07:25 | PN- Housestaff ---
See Addendum ROSSY LANE,KATYA 01/25/17 0722: Subjective Follow-up For: Acute hypoxic respiratory failure Subjective: I saw examined the patient today morning Overnight he did receive BiPAP, reports he is feeling better however still had shortness of breath. He denies any chest pain, able to walk around and eats well. Still had some cough with lying flat. Upon further inquiring patient reports significant snoring with daytime naps and feeling unrefreshed in the morning. At bedside with Ray Morgan MD saturations were measured at rest without oxygen - 90%, with ambulation without oxygen- 88%. Review of Systems Constitutional: Reports: see HPI. Comments: ROS negative except above Objective Last 24 Hrs of Vital Signs/I&O Vital Signs Date Time Temp Pulse Resp B/P B/P Pulse O2 O2 Flow FiO2 Mean Ox Delivery Rate 01/25 0229 95 94 Nasal 4.0L Cannula 01/25 0113 84 01/25 0000 94 Nasal 4.0L Cannula 01/24 2318 98.2 111 20 124/62 94 Nasal 4.0L Cannula 01/24 1621 92 Nasal 4.0L Cannula 01/24 1600 Nasal 4.0L Cannula 01/24 1332 98.1 100 20 130/68 94 Nasal 5.0L Cannula 01/24 0930 97.3 99 18 123/71 92 Nasal 4.0L Cannula 01/24 0832 93 Nasal 4.0L Cannula 01/24 0800 92 Nasal 4.0L Cannula Intake & Output 01/25 0800 01/25 0000 01/24 1600 Intake Total 180 800 420 Output Total Balance 180 800 420 Intake, IV 100 Intake, Oral 80 800 420 Physical Exam General Appearance: Alert, Oriented X3 Skin: No Rashes, No Breakdown HEENT: Atraumatic, PERRLA, EOMI Neck: Supple Cardiovascular: Normal S1, Normal S2 Lungs: good air entry with mild to moderate wheezing. Abdomen: Normal Bowel Sounds, No Tenderness, distended Neurological: Strength at 5/5 X4 Ext, Normal Tone, Sensation Intact Extremities: No Clubbing, No Cyanosis, 1-2+ pitting edema Current Medications: Current Medications Sig/Paco Start time Last Medication Dose Route Stop Time Status Admin Albuterol Sulfate 3 ML Q4P PRN 01/23 1930 AC 01/24 INH 1620 Azithromycin 500 MG 01/23 2200 AC 01/24 Sodium Chloride 250 ML IV 2117 Enoxaparin Sodium 40 MG DAILY 01/24 1000 AC SC Furosemide 40 MG DAILY 01/25 1000 AC IV Insulin Aspart 0 TIDAC 01/24 0800 AC 01/24 SC 1741 Melatonin 5 MG ONCE ONE 01/25 0030 DC PO 01/25 0031 Methylprednisolone 40 MG DAILY 01/24 1000 DC IV Methylprednisolone 40 MG Q8 01/24 0855 DC 01/24 IV 1415 Paliperidone 3 MG DAILY 01/24 1000 AC 01/24 PO 0920 Prednisone 30 MG DAILY 01/25 1000 AC PO Assessment/Plan Assessment: Patient is a 41-year-old male with past medical history of recent ICU admission for multifocal pneumonia, former smoker, schizophrenia presented with progressive worsening of dyspnea. Associated with occasional cough with yellowish phlegm production. In the ER he desaturated to 88% on room air. Admitted to general medicine floor Acute hypoxic hypercarbic respiratory failure 2/2 ETIENNE vs obesity hypoventilation syndrome * Quick prednisone taper * start on nocturnal BiPAP tonight with 07/12 can be increased to 18/01. * Continue azithromycin 500mg for 5days. * TRC/nebs * Needs outpatient sleep study * Continue IV lasix 40mg, start Diamox 500 twice a day as bicarbonate level is 40. * CTA - ruled out PE Type 2 diabetes * Patient was recently started on glipizide, stopped taking it as he started to develop hypoglycemic episodes * Insulin sliding scale, Accu-Cheks Schizophrenia * Patient was on paliperidone prior to admission * We will continue Morbid obesity * BMI of 47 * Never evaluated by a tassel making machine operator in the past. * need sleep study in near future. * Started on Diamox 500 twice a day as patient's bicarbonate level is 40 * Nocturnal pulse oximetry DVT prophylaxis * Alps CODE STATUS * Full code Problem List: 1. Obesity hypoventilation syndrome 2. Obstructive sleep apnea 3. Dyspnea 4. Extremity edema Pain Ratin Pain Location: Chest pain Pain Goal: Pain 4 or less Pain Plan: Tylenol Tomorrow's Labs & Rationales: BEP to monitor bicarbonate levels VANI THOMAS MD 01/25/17 1102: Attending MD Review Statement Attending Statement Attending MD Statement: examined this patient, discuss w/resident/PA/MACHINING MANAGER, agreed w/resident/PA/MACHINING MANAGER, reviewed EMR data (avail) Attending Assessment/Plan: 41M PMH schizophrenia, former 16 year smoker presenting with 4 days of shortness of breath, productive cough, and hypoxia. Very short of breath yesterday, improving today. Bilateral rhonchi on exam. Hypoxic 86% on room air on admission, requiring 4L NC at this time. Reports that he feels better. Cultures NGTD. 1. Acute exacerbation of COPD 2. Acute hypoxemic respiratory failure 3. Shortness of breath Plan - continue on general medicine - May discontinue steroids after today - Obtain ABG - BiPAP PRN, particulary at night - Start Diamox - follow pulmonary recommendations - Continue Azithromycin - TRC/nebulizer treatments - Continue home medications - DVT PPx
--- NOTE | 2017-01-25 08:20 | PN- Student ---
Subjective Subjective: Patient was seen and examined this morning. Reports no overnight events, no difficulty sleeping. Only has difficulty breathing and has a cough when lying flat. Patient states that phlegm is now clear. Sleeps with bed on incline and at home with 4 pillows. Had nocturnal oximetry last night, states he did not have a BiPAP and didn't see a commissioned fire officer yesterday. Patient states he heard himself wheezing but has subsided today. Denies chest pain, abdominal pain, nausea, vomiting, diarrhea, headache, body aches. Current Medications Sig/Paco Start time Last Medication Dose Route Stop Time Status Admin Albuterol Sulfate 3 ML Q4P PRN 01/23 1930 AC 01/24 INH 1620 Azithromycin 500 MG 2200 01/23 2200 AC 01/24 Sodium Chloride 250 ML IV 2117 Enoxaparin Sodium 40 MG DAILY 01/24 1000 AC SC Furosemide 40 MG DAILY 01/25 1000 AC IV Insulin Aspart 0 TIDAC 01/24 0800 AC 01/24 SC 1741 Melatonin 5 MG ONCE ONE 01/25 0030 DC PO 01/25 0031 Methylprednisolone 40 MG DAILY 01/24 1000 DC IV Methylprednisolone 40 MG Q8 01/24 0855 DC 01/24 IV 1415 Paliperidone 3 MG DAILY 01/24 1000 AC 01/24 PO 0920 Prednisone 30 MG DAILY 01/25 1000 AC PO Objective Objective: Physical Exam: General: alert and oriented x3. no acute distress. morbidly obese Skin: no pallor, jaundice, or cyanosis. Lungs: rhonchi bilaterally Heart: regular rate and rhythm. no murmurs, gallops, rubs Abdomen: normoactive bowel sounds. Extremities: no edema, erythema or clubbing. CTA Chest (01/24/17): No evidence of pulmonary embolic disease or other acute cardiopulmonary process. Vital Signs Date Time Temp Pulse Resp B/P B/P Pulse O2 O2 Flow FiO2 Mean Ox Delivery Rate 01/25 0800 94 Nasal 4.0L Cannula 01/25 0630 98.0 83 20 128/78 98 Nasal 4.0L Cannula 01/25 0229 95 94 Nasal 4.0L Cannula 01/25 0113 84 01/25 0000 94 Nasal 4.0L Cannula 01/24 2318 98.2 111 20 124/62 94 Nasal 4.0L Cannula 01/24 1621 92 Nasal 4.0L Cannula 01/24 1600 Nasal 4.0L Cannula 01/24 1332 98.1 100 20 130/68 94 Nasal 5.0L Cannula 01/24 0930 97.3 99 18 123/71 92 Nasal 4.0L Cannula Intake & Output 01/25 1600 01/25 0800 01/25 0000 Intake Total 180 800 Output Total Balance 180 800 Intake, IV 100 Intake, Oral 80 800 Results Results: Laboratory Tests 01/25/17 0635: Anion Gap 6, Estimated GFR > 60, BUN/Creatinine Ratio 25.0 01/25/17 0600: ABG O2 Sat Calc/Mario 94.0, O2 Concentration % 4 LPM, O2 Delivery Method NC 01/23/17 1354: Bicarbonate Actual 35 H, Mixed VBG pH 7.33, Mixed VBG pCO2 67 H, Mixed VBG O2 Saturation 30 L, P-50 (Temp Corrected) N, Carboxyhemoglobin 0.9 L, O2 Concentration % .21, Temperature 98.4, O2 Delivery Method RA, Phlebotomy Draw Site RIGHT RADIAL 01/23/17 1235: Anion Gap 9, Estimated GFR > 60, BUN/Creatinine Ratio 16.7, Glucose 116 H, Calcium 8.7, Magnesium 1.9, Total Bilirubin 0.5, AST 42, ALT 61, Alkaline Phosphatase 66, Troponin I 0.04, Hnt-I-Ekdbjkjhnbp Pept 31.7, Total Protein 6.9, Albumin 3.9, Globulin 3.0, Albumin/Globulin Ratio 1.3, PT 12.0, INR 1.14, APTT 35, D-Dimer High Sensitivty < 200, CBC w Diff NO MAN DIFF REQ, RBC 5.89, MCV 82.0, MCH 26.1 L, RDW 14.5, MPV 7.8, Gran % 66.3, Lymphocytes % 23.9, Monocytes % 7.1, Eosinophils % 2.3, Basophils % 0.4, Absolute Granulocytes 4.9, Absolute Lymphocytes 1.8, Absolute Monocytes 0.5, Absolute Eosinophils 0.2, Absolute Basophils 0, PUBS MCHC 31.9 L Assessment/Plan Assessment: Assessment and Plan: 41 yo male with PMHx of diabetes and schizophrenia presented on 01/25/17 for worsening shortness of breath of 1 week, thought to be a COPD exacerbation. PE is significant for bilateral rhonchi. Patient is afebrile (98), normal heart rate (83), with bicarbonate level of 39. Upon admission pulse ox was 88% on room air and is now 94% on 4.0L NC. CXR and CTA are unremarkable. 1. Dyspnea * Differential includes: COPD exacerbation, asthma, secondary to schizophrenia, obesity/deconditioning, interstitial lung disease, pneumonia, CHF. * Monitor vitals. * Continue nebulizer treatments as needed. Methylprednisolone has been discontinued and Prednisone 30 mg has been started. * Lasix 40 mg has been started. Bicarbonate levels have increased from 35 to 39, can consider switching from Lasix to Diamox if level is >40 per pulm consult. * Perform PFTs to differentiate from between COPD and asthma and thereby determine severity and management (GOLD guidelines for COPD and NHLBI guidelines for asthma.) Can rehabilitation services counselor patient on importance of continuation of smoking cessation, regular physical activity, annual influenza vaccination, pneumococcal vaccination. Patient was given TAINA from [place] [facility] upon recent discharge. Continue use q 4-6 hours PRN. * Consult respiratory for CPAP. Pulse ox was 84% at 1 a.m. * Pulmonology consult yesterday with Dr. Morgan. Recommendations included nocturnal oximetry, weight loss therapy, BiPAP, overnight sleep study, and to continue Azithromycin. 2. Tachycardia * Upon admission, HR was 90, with Tmax of 112. This morning, HR is 83. * Monitor HR. * Chest/thorax CTA - no evidence of PE. 3. Diabetes Mellitus * Upon admission, glucose was 116. Patient was given insulin aspart. * Monitor glucose levels. * Consider counseling on lifestyle modifications. 4. Schizophrenia * Continue Paliperidone.
--- NOTE | 2017-01-25 12:44 | NUR ---
NURSING NOTE: PATIENT AMBULATED TO THE ELEVATOR ON RA SPO2 84%. RETURNED TO ROOM AND PUT ON 4L OF O2, SPO2 UP TO 95%. AMBULATED TO ELEVATOR ON 4L O2, SPO2 91%. RETURNED TO ROOM SITTING IN CHAIR ON 4L O2, SPO2 94%. CASE ANNMARIE JUAN NOTIFIED.
--- NOTE | 2017-01-25 13:53 | PN- Pulmonary ---
Subjective HPI/Critical Care Issues: Little better Did reduce oxygen and his sat is around 90 on room air and does have sig desat with hypoxia OOB to chair Objective Current Medications: Current Medications Sig/Paco Start time Last Medication Dose Route Stop Time Status Admin Albuterol Sulfate 3 ML Q4P PRN 01/23 1930 AC 01/24 INH 1620 Azithromycin 500 MG 2200 01/230 AC 01/24 Sodium Chloride 250 ML IV 2117 Enoxaparin Sodium 40 MG DAILY 01/24 1000 AC 01/25 SC 1204 Furosemide 40 MG DAILY 01/25 1000 AC 01/25 IV 1204 Insulin Aspart 0 TIDAC 01/24 0800 AC 01/24 SC 1741 Melatonin 5 MG ONCE ONE 01/25 0030 DC PO 01/25 0031 Methylprednisolone 40 MG Q8 01/24 0855 DC 01/24 IV 1415 Paliperidone 3 MG DAILY 01/24 1000 AC 01/25 PO 1204 Prednisone 30 MG DAILY 01/25 1000 AC 01/25 PO 1203 Laboratory Tests 01/25 01/25 01/25 1126 0635 0600 Blood Gas pH (7.35 - 7.45 PH) 7.36 pCO2 (35 - 45 TORR) 71 *H pO2 (80 - 100 TORR) 82 HCO3 (21 - 28 MEQ/L) 39 H ABG O2 Sat (Measured) (>96.0 %) 96.0 ABG O2 Sat Calc/Mario (92.0 - 96.0 %) 94.0 Carboxyhemoglobin (1.5 - 5.0 %) 0.2 L O2 Concentration % 4 LITERS 4 LPM O2 Delivery Method N/C NC Chemistry Sodium (137 - 145 mmol/L) 139 Potassium (3.5 - 5.1 mmol/L) 4.8 Chloride (98 - 107 mmol/L) 93 L Carbon Dioxide (22 - 30 mmol/L) 40 H Anion Gap (5 - 16) 6 BUN (9 - 20 mg/dL) 15 Creatinine (0.7 - 1.2 mg/dL) 0.6 L Estimated GFR (>60 ml/min) > 60 BUN/Creatinine Ratio (7 - 25 %) 25.0 Miscellaneous Phlebotomy Draw Site RIGHT RADIAL ARM 01/23 1354 Blood Gas Bicarbonate Actual (22 - 26 MEQ/L) 35 H Mixed VBG pH (7.31 - 7.41 PH) 7.33 Mixed VBG pCO2 (41 - 51 TORR) 67 H Mixed VBG O2 Saturation (35 - 45 TORR) 30 L P-50 (Temp Corrected) N Carboxyhemoglobin (1.5 - 5.0 %) 0.9 L O2 Concentration % .21 Temperature (97.0 - 100.0 FARH) 98.4 O2 Delivery Method RA Miscellaneous Phlebotomy Draw Site RIGHT RADIAL Vital Signs & I&O Last 24 Hrs of Vitals and I&O: Vital Signs Date Time Temp Pulse Resp B/P B/P Pulse O2 O2 Flow FiO2 Mean Ox Delivery Rate 01/25 1311 93 Nasal 4.0L Cannula 01/25 0800 94 Nasal 4.0L Cannula 01/25 0630 98.0 83 20 128/78 98 Nasal 4.0L Cannula 01/25 0229 95 94 Nasal 4.0L Cannula 01/25 0113 84 01/25 0000 94 Nasal 4.0L Cannula 01/24 2318 98.2 111 20 124/62 94 Nasal 4.0L Cannula 01/24 1621 92 Nasal 4.0L Cannula 01/24 1600 Nasal 4.0L Cannula Intake & Output 01/25 1600 01/25 0800 01/25 0000 Intake Total 180 800 Output Total Balance 180 800 Intake, IV 100 Intake, Oral 80 800 Impression/Plan Impression/Plan Impression/Plan: PATIENT: NOEL GRAY The pulmonary arteries are adequately opacified and are normal in caliber. No central, lobar, or segmental filling defects are seen to suggest pulmonary emboli. The lungs are clear except for mild bibasilar atelectatic changes. Specifically, there is no evidence of a pneumothorax. The tracheobronchial tree is patent. The thyroid gland is unremarkable. The thoracic aorta is normal in caliber. There is no evidence of mediastinal or hilar adenopathy. There is no pleural or pericardial effusion. There is no chest wall mass. No supraclavicular or axillary adenopathy is identified. The visualized abdominal structures are within normal limits. Degenerative spondylitic changes are present in the dorsal spine. No focal osteolytic or osteoblastic changes are seen. No evidence of pulmonary embolic disease or other acute cardiopulmonary process. Physical Exam General Appearance Alert, Oriented X3, Cooperative, No Acute Distress Skin No Rashes, No Breakdown HEENT Atraumatic, PERRLA, EOMI Neck Supple Cardiovascular Normal S1, Normal S2 Lungs poor air entry, hptw-[id number] wheezing Abdomen Normal Bowel Sounds, Soft, No Tenderness Neurological Normal Speech, Strength at 5/5 X4 Ext, Normal Tone, Sensation Intact Extremities No Clubbing, No Cyanosis Vascular Normal Pulses, Pulses Symmetrical ABG reviewed PCo2 70 plus IMPRESSION This a gentleman with schizophrenia morbid obesity with previous history of chronic hypercarbic respiratory failure has * Improving Acute on chronic hypercarbic and hypoxemic respiratory failure related to profound obstructive sleep apnea and obesity hypoventilation syndrome with pulmonary hypertension. * Rt heart dysfunction due to severe obstructive sleep apnea * Chronic hypercarbia related to obesity hypoventilation syndrome * No clinical evidence suggestive of significant emphysema patient may have asthma with chronic bronchitis with remote history of smoking but does not actively smoke at this present time * Morbid obesity * Schizophrenia RECOMMENDATION Cont diuresis Keep potassium more than 4 Diamox 500 po two doses Prednisone 30 mg and wean off in 4 days Azithromycin 500 milligrams daily for 5 days ok with po Please ask respiratory to do nocturnal oximetry Patient might qualify for bedtime BiPAP. Please asked respiratory to start BiPAP tonight 12/6 and then slowly can be increased to 14/6 Outpatient sleep study
[2017-01-25 14:13] VITALS: BP 120/82
[2017-01-25 22:37] VITALS: BP 125/71
[2017-01-26 07:06] VITALS: BP 122/92
--- NOTE | 2017-01-26 07:29 | PN- Housestaff ---
See Addendum Subjective Follow-up For: Acute hypoxic respiratory failure Subjective: I saw and examined the patient today morning He is doing well, No overnight events, tolerated Nocturnal BiPAP. No pain/ shortness of breath. Oxygen requirement decreased to 3L. Review of Systems Constitutional: Reports: see HPI. Objective Last 24 Hrs of Vital Signs/I&O Vital Signs Date Time Temp Pulse Resp B/P B/P Pulse O2 O2 Flow FiO2 Mean Ox Delivery Rate 01/26 0706 97.0 82 20 122/92 94 Nasal Cannula 01/26 0026 89 92 01/26 0000 BIPAP 01/25 2237 98.5 101 20 125/71 95 Nasal 5.0L Cannula 01/25 1630 95 Nasal 4.0L Cannula 01/25 1413 97.9 97 20 120/82 93 Nasal 5.0L Cannula 01/25 1311 93 Nasal 4.0L Cannula 01/25 0800 94 Nasal 4.0L Cannula Intake & Output 01/26 0800 01/26 0000 01/25 1600 Intake Total 780 Output Total Balance 780 Intake, IV 60 Intake, Oral 720 Number 1 Bowel Movements Physical Exam General Appearance: Alert, Oriented X3, Cooperative Skin: No Rashes, No Breakdown HEENT: Atraumatic, PERRLA Neck: Supple Cardiovascular: Normal S1, Normal S2 Lungs: good air entry with significant wheezing (moderate) Abdomen: Normal Bowel Sounds, Soft, No Tenderness Extremities: No Clubbing, No Cyanosis, 1-2+ pitting edema Current Medications: Current Medications Sig/Paco Start time Last Medication Dose Route Stop Time Status Admin Acetazolamide 500 MG BID 01/25 1524 AC 01/25 PO 2115 Albuterol Sulfate 3 ML Q4P PRN 01/23 1930 AC 01/25 INH 1630 Azithromycin 500 MG DAILY 01/26 1000 AC PO 01/28 1001 Azithromycin 500 MG 2200 01/23 2200 DC 01/24 Sodium Chloride 250 ML IV 2117 Enoxaparin Sodium 40 MG DAILY 01/24 1000 AC 01/25 SC 1204 Furosemide 40 MG DAILY 01/25 1000 AC 01/25 IV 1204 Insulin Aspart 0 TIDAC 01/24 0800 AC 01/24 SC 1741 Paliperidone 3 MG DAILY 01/24 1000 AC 01/25 PO 1204 Prednisone 5 MG ONCE ONE 01/29 1000 AC PO 01/29 1001 Prednisone 10 MG ONCE ONE 01/28 1000 AC PO 01/28 1001 Prednisone 20 MG ONCE ONE 01/27 1000 AC PO 01/27 1001 Prednisone 30 MG DAILY 01/26 1000 CAN PO 01/30 0959 Prednisone 30 MG ONCE ONE 01/26 1000 AC PO 01/26 1001 Prednisone 30 MG DAILY 01/25 1000 DC 01/25 PO 1203 Last 24 Hrs of Lab/Reid Results Last 24 Hrs of Labs/Mics: Laboratory Tests 01/26/17 0645: Anion Gap 9, Estimated GFR > 60, BUN/Creatinine Ratio 23.8 Assessment/Plan Assessment: Patient is a 41-year-old male with past medical history of recent ICU admission for multifocal pneumonia, former smoker, schizophrenia presented with progressive worsening of dyspnea. Associated with occasional cough with yellowish phlegm production. In the ER he desaturated to 88% on room air. Admitted to general medicine floor Acute hypoxic hypercarbic respiratory failure 2/2 ETIENNE vs obesity hypoventilation syndrome * Quick prednisone taper - prednisone 20mg today and 10mg tomorrow, then stop. * start on nocturnal BiPAP tonight with 07/12 can be increased to 18/01. * Continue azithromycin 500mg for 5days. * TRC/nebs * Needs outpatient sleep study * Continue furosemide 40mg 4times per week, Diamox 500mg twice a week * CTA - ruled out PE Type 2 diabetes * Patient was recently started on glipizide, stopped taking it as he started to develop hypoglycemic episodes * Insulin sliding scale, Accu-Cheks Schizophrenia * Patient was on paliperidone prior to admission * We will continue Morbid obesity * BMI of 47 * Never evaluated by a sheriff's sergeant in the past. * need sleep study in near future. * Continue diamox 500mg 2 times a week, as his bicarbonate is 36. * Nocturnal pulse oximetry - done DVT prophylaxis * Alps CODE STATUS * Full code Problem List: 1. Dyspnea 2. Obstructive sleep apnea 3. Obesity hypoventilation syndrome 4. Hypoxia Pain Ratin Pain Location: n/a Pain Goal: Pain 4 or less Pain Plan: tylenol prn Tomorrow's Labs & Rationales: NONE
--- NOTE | 2017-01-26 07:59 | PN- Student ---
Subjective Subjective: Patient was seen and examined this morning. Patient woke up feeling better without fatigue. He states some shortness of breath only when lying flat. Patient was able to tolerate BiPAP last night and said it only was out of place a couple times last night due to moving during sleep. He was able to walk around yesterday with and without oxygen and denies any dyspnea. Denies chest pain, nausea, vomiting, diarrhea, abdominal pain, chills, night sweats. Current Medications Sig/Paco Start time Last Medication Dose Route Stop Time Status Admin Acetazolamide 500 MG BID 01/25 1524 AC 01/25 PO 2115 Albuterol Sulfate 3 ML Q4P PRN 01/23 1930 AC 01/25 INH 1630 Azithromycin 500 MG DAILY 01/26 1000 AC PO 01/28 1001 Azithromycin 500 MG 2200 01/23 2200 DC 01/24 Sodium Chloride 250 ML IV 2117 Enoxaparin Sodium 40 MG DAILY 01/24 1000 AC 01/25 SC 1204 Furosemide 40 MG DAILY 01/25 1000 AC 01/25 IV 1204 Insulin Aspart 0 TIDAC 01/24 0800 AC 01/24 SC 1741 Paliperidone 3 MG DAILY 01/24 1000 AC 01/25 PO 1204 Prednisone 5 MG ONCE ONE 01/29 1000 AC PO 01/29 1001 Prednisone 10 MG ONCE ONE 01/28 1000 AC PO 01/28 1001 Prednisone 20 MG ONCE ONE 01/27 1000 AC PO 01/27 1001 Prednisone 30 MG DAILY 01/26 1000 CAN PO 01/30 0959 Prednisone 30 MG ONCE ONE 01/26 1000 AC PO 01/26 1001 Prednisone 30 MG DAILY 01/25 1000 DC 01/25 PO 1203 Objective Objective: Physical Exam: General: alert and oriented x3. no acute distress. morbidly obese. Skin: no pallor, jaundice, or cyanosis. Lungs: rhonchi upper lobes bilaterally. Heart: regular rate and rhythm. no murmurs, rubs, gallops. Abdomen: normoactive bowel sounds. Extremities: no edema, erythema, or clubbing. Vital Signs Date Time Temp Pulse Resp B/P B/P Pulse O2 O2 Flow FiO2 Mean Ox Delivery Rate 01/26 0706 97.0 82 20 122/92 94 Nasal Cannula 01/26 0026 89 92 01/26 0000 BIPAP 01/25 2237 98.5 101 20 125/71 95 Nasal 5.0L Cannula 01/25 1630 95 Nasal 4.0L Cannula 01/25 1413 97.9 97 20 120/82 93 Nasal 5.0L Cannula 01/25 1311 93 Nasal 4.0L Cannula 01/25 0800 94 Nasal 4.0L Cannula Intake & Output 01/26 0800 01/26 0000 01/25 1600 Intake Total 780 Output Total Balance 780 Intake, IV 60 Intake, Oral 720 Number 1 Bowel Movements Results Results: Laboratory Tests 01/26/17 0645: Anion Gap 9, Estimated GFR > 60, BUN/Creatinine Ratio 23.8 01/25/17 1126: pH 7.36, pCO2 71 *H, pO2 82, HCO3 39 H, ABG O2 Sat (Measured) 96.0, Carboxyhemoglobin 0.2 L, O2 Concentration % 4 LITERS, O2 Delivery Method N/C, Phlebotomy Draw Site RIGHT RADIAL ARM 01/25/17 0635: Anion Gap 6, Estimated GFR > 60, BUN/Creatinine Ratio 25.0 01/25/17 0600: ABG O2 Sat Calc/Mario 94.0, O2 Concentration % 4 LPM, O2 Delivery Method NC 01/23/17 1354: Bicarbonate Actual 35 H, Mixed VBG pH 7.33, Mixed VBG pCO2 67 H, Mixed VBG O2 Saturation 30 L, P-50 (Temp Corrected) N, Carboxyhemoglobin 0.9 L, O2 Concentration % .21, Temperature 98.4, O2 Delivery Method RA, Phlebotomy Draw Site RIGHT RADIAL 01/23/17 1235: Anion Gap 9, Estimated GFR > 60, BUN/Creatinine Ratio 16.7, Glucose 116 H, Calcium 8.7, Magnesium 1.9, Total Bilirubin 0.5, AST 42, ALT 61, Alkaline Phosphatase 66, Troponin I 0.04, Iqu-P-Aeydoxhzluv Pept 31.7, Total Protein 6.9, Albumin 3.9, Globulin 3.0, Albumin/Globulin Ratio 1.3, PT 12.0, INR 1.14, APTT 35, D-Dimer High Sensitivty < 200, CBC w Diff NO MAN DIFF REQ, RBC 5.89, MCV 82.0, MCH 26.1 L, RDW 14.5, MPV 7.8, Gran % 66.3, Lymphocytes % 23.9, Monocytes % 7.1, Eosinophils % 2.3, Basophils % 0.4, Absolute Granulocytes 4.9, Absolute Lymphocytes 1.8, Absolute Monocytes 0.5, Absolute Eosinophils 0.2, Absolute Basophils 0, PUBS MCHC 31.9 L Assessment/Plan Assessment: Assessment and Plan: 41 yo male with PMHx of diabetes and schizophrenia presented on 01/25/17 for worsening shortness of breath of 1 week, thought to be a COPD exacerbation. PE is significant for bilateral rhonchi in upper lobes. Patient is afebrile (97.0), normal heart rate (82), with bicarbonate level of 39. Upon admission pulse ox was 88% on room air and is now 92% on 3.0L NC. CXR and CTA are unremarkable. 1. Dyspnea * Differential includes: COPD exacerbation, asthma, secondary to schizophrenia, obesity/deconditioning, interstitial lung disease, pneumonia, CHF. * Monitor vitals. * Continue nebulizer treatments as needed. Prednisone is being tapered. * Taper oxygen and monitor pulse oximetry. * Outpatient PFTs to differentiate from between COPD and asthma and thereby determine severity and management (GOLD guidelines for COPD and NHLBI guidelines for asthma.) Can probation counselor patient on importance of continuation of smoking cessation, regular physical activity, annual influenza vaccination, pneumococcal vaccination. * Pulmonology consult: Lasix PO 4x/week, Diamox 2x/week, outpatient sleep study, f/u with chicken raiser 2. Hypercarbia * Differential includes: secondary to obesity, obstructive sleep apnea, obesity hypoventilation syndrome. Patient meets obesity hypoventilation syndrome criteria as his serum bicarbonate level was >27 (39), pCO2 >45 (71), BMI > 30 ( 47), dyspnea on exertion. Can consider further testing, echocardiogram, outpatient to rule in or out complications such as: heart failure, pulmonary hypertension. * Recheck ABG. * Continue using BiPAP. 3.. Tachycardia - resolved * Upon admission, HR was 90, with Tmax of 112. This morning, HR is 82. * Monitor HR. * Chest/thorax CTA - no evidence of PE. 4. Diabetes Mellitus * Upon admission, glucose was 116. Patient was given insulin aspart. * Obtain HbA1c. * Consider counseling on lifestyle modifications, nutrition consult. 5. Schizophrenia * Continue Paliperidone. Outpatient: -follow up with chicken raiser on February 03, PCP -overnight sleep study -02 at home as needed -BiPAP
[2017-01-26] MEDS ORDERED: AZITHROMYCIN500 M3 PO ×3 (09:29→11:12)
[2017-01-26] MEDS ORDERED: PREDNISONE10 M2 PO ×3 (09:29→11:12)
--- NOTE | 2017-01-26 09:31 | Patient Discharge Instructions ---
Discharge Instructions General Discharge Information You were seen/treated for: Acute on chronic hypoxic hypercarbic respiratory failure obstructive sleep apnea Special Instructions: Please follow up with PCP in a week Please follow up with your cook's assistant on february 03 as per schedule. Please follow up regarding sleep study as outpatient Please take Diamox twice a week and furosemide 4times per week Please call for any further questions before cook's assistant appointment. Please use oxygen as needed Diet Continue normal diet: Yes Recommended Diet: Heart Healthy Activity Full Activity/No Limits: Yes Acute Coronary Syndrome Inclusion Criteria At DC or during hospital stay patient has or had the following: ACS DIAGNOSIS No Discharge Core Measures Meds if any: Prescribed or Continued at Discharge Meds if any: NOT Prescribed or Continued at Discharge Congestive Heart Failure Inclusion Criteria At DC or during hospital stay patient has or had the following: CHF DIAGNOSIS No Discharge Core Measures Meds if any: Prescribed or Continued at Discharge Meds if any: NOT Prescribed or Continued at Discharge Cerebrovascular accident Inclusion Criteria At DC or during hospital stay patient has or had the following: CVA/TIA Diagnosis No Discharge Core Measures Meds if any: Prescribed or Continued at Discharge Meds if any: NOT Prescribed or Continued at Discharge Venous thromboembolism Inclusion Criteria VTE Diagnosis No VTE Type NONE VTE Confirmed by (Test) NONE Discharge Core Measures - Per Current guidelines, there needs to be overlap - treatment for the first 5 days of Warfarin therapy. - If discharged on Warfarin prior to 5 days of - overlap therapy, the patient will need to be - assessed for post discharge needs including - *Post discharge parental anticoagulation - *Warfarin and/or parental anticoagulation education - *Follow up date to check INR post discharge At least 5 days overlap therapy as Inpatient No Meds if any: Prescribed or Continued at Discharge Note: Overlap Therapy is Warfarin and Anticoagulant Meds if any: NOT Prescribed or Continued at Discharge
[2017-01-26] MEDS ORDERED: FUROSEMIDE40 M1 PO ×4 (09:32→13:15)
--- NOTE | 2017-01-26 09:44 | Discharge Summary ---
Visit Information Visit Dates Admission Date: 01/23/17 Discharge Date: 01/26/17 Hospital Course Course Attending Physician: BARRINGTON REYES MD Primary Care Physician: FINESSE FARRAR MD Consulting Request: Consulting Specialty: Pulmonary Disease Consulting Physician: Reason for Consult: Acute on chronic hyoxic respiratory failure Hospital Course: Patient is a 41-year-old male with past medical history of recent ICU admission for multifocal pneumonia, former smoker, schizophrenia presented with progressive worsening of dyspnea. Associated with occasional cough with yellowish phlegm production. In the ER he desaturated to 88% on room air. Admitted to general medicine floor Acute hypoxic hypercarbic respiratory failure 2/2 ETIENNE vs obesity hypoventilation syndrome Initially thought of COPD exacerbation and started on IV steroids, however after evaluating with ABG showing chronic hypercarbia in combination with no clinical evidence suggestive of significant emphysema - he was quickly tapered off steroids. He was started on Diamox as his bicarb is around 40, with nocturnal BiPAP after measuring nocturanl saturations. A 5day course of azithromycin is given along with twice a week diamox at discharge. patient may have asthma with chronic bronchitis with remote history of smoking but does not actively smoke at this present time. He had significant history of snoring, daytime naps ---he needs outpatient sleep study. As he also found to have edema secondary to right heart dysfunction from ETIENNE, he was started on IV lasix -- switched to oral lasix 40mg 4times a day at discharge. He need to follow up with outpatient pulmonology appointment scheduled on february 03. Discharged on home oxygen. CTA - ruled out PE Type 2 diabetes Patient was recently switched to glipizide from metformin, stopped taking it as he started to develop hypoglycemic episodes. During his hospital stay Insulin administered according to sliding scale and Accu-Cheks. Need to follow up with PCP regarding medication changes and compliance. Schizophrenia Continued paliperidone as prior to admission. Morbid obesity BMI of 47. He was Never evaluated by a cross cut sawyer in the past. He need sleep study in near future as mentioned above. In consideration of above there might be a combinational effect of obstructive sleep apnea and obesity hypoventilation syndrome. DVT prophylaxis * Alps CODE STATUS * Full code Complications: NONE Allergies: Coded Allergies: No Known Allergies (04/21/16) Significant Procedures: CT angio on 01/24/17 IMPRESSION: No evidence of pulmonary embolic disease or other acute cardiopulmonary process. CXR on 01/23/17 IMPRESSION: Hypoexpanded but no focal airspace disease. Pertinent Lab Results: as above Disposition Summary Disposition Principal Diagnosis: Acute on chronic hypercarbic respiratory failure Additional Diagnosis: Type 2 diabetes mellitus Discharge Disposition: home or self care Discharge Instructions General Discharge Information Code Status: Full Code Patient's Diet: Heart healthy diet Patient's Activity: Activity as tolerated Follow-Up Instructions/Appts: Please follow up with PCP in a week Please follow up with in a week Please follow up regarding sleep study as outpatient Please use oxygen as needed Medications at Discharge Discharge Medications: Continue taking these medications: Glipizide (Glipizide) 5 MG TABLET 1 Tablet ORAL TWICE DAILY Qty = 60 Comments: NOT GIVEN IN HOSPITAL Paliperidone (Invega) 3 MG TAB.ER.24 1 Tablet ORAL Every Morning Qty = 30 Comments: Last Taken: 01/26/17 Time: 1100 AM Start taking the following new medications: Azithromycin (Azithromycin) 500 MG TABLET 1 Tablet ORAL DAILY Qty = 2 No Refills Comments: Last Taken: 01/26/17 Time: 1100 AM Prednisone (Prednisone) 10 MG TABLET 1 Tablet ORAL DAILY Qty = 1 No Refills Comments: Last Taken: 01/26/17 Time: 1100 AM Acetazolamide (Diamox Sequels) 500 MG CAPSULE.ER 1 Capsule ORAL 2 times per week Qty = 60 No Refills Comments: Last Taken: 01/26/17 Time: 1100 AM Furosemide (Furosemide) 40 MG TABLET 1 Tablet ORAL See Instructions Qty = 30 No Refills Instructions: Please take 4 times a week Example: Monday, monday, monday, monday. Comments: Last Taken: 01/26/17 Time: 1100 AM IV VERSION Copies To: BECCA LANE,KAUSHAL Bergman; LENI LANE,FINESSE Robert Attending MD Review Statement Documenting Attending: WILLIAM LANE,VANI
--- NOTE | 2017-01-26 11:27 | PN- Pulmonary ---
Subjective HPI/Critical Care Issues: Patient was seen and examined this morning. Patient woke up feeling better without fatigue. He states some shortness of breath only when lying flat. Patient was able to tolerate BiPAP last night and said it only was out of place a couple times last night due to moving during sleep. He was able to walk around yesterday with and without oxygen and denies any dyspnea. Denies chest pain, nausea, vomiting, diarrhea, abdominal pain, chills, night sweats. Objective Current Medications: Current Medications Sig/Paco Start time Last Medication Dose Route Stop Time Status Admin Acetazolamide 500 MG BID 01/25 1524 AC 01/26 PO 1108 Albuterol Sulfate 3 ML Q4P PRN 01/23 1930 AC 01/26 INH 0858 Azithromycin 500 MG DAILY 01/26 1000 AC 01/26 PO 01/28 1001 1108 Azithromycin 500 MG 2200 01/23 2200 DC 01/24 Sodium Chloride 250 ML IV 2117 Enoxaparin Sodium 40 MG DAILY 01/24 1000 AC 01/25 SC 1204 Furosemide 40 MG DAILY 01/25 1000 AC 01/26 IV 1108 Insulin Aspart 0 TIDAC 01/24 0800 AC 01/24 SC 1741 Paliperidone 3 MG DAILY 01/24 1000 AC 01/26 PO 1108 Prednisone 5 MG ONCE ONE 01/29 1000 AC PO 01/29 1001 Prednisone 10 MG ONCE ONE 01/28 1000 AC PO 01/28 1001 Prednisone 20 MG ONCE ONE 01/27 1000 AC PO 01/27 1001 Prednisone 30 MG DAILY 01/26 1000 CAN PO 01/30 0959 Prednisone 30 MG ONCE ONE 01/26 1000 DC 01/26 PO 01/26 1001 1109 Prednisone 30 MG DAILY 01/25 1000 DC 01/25 PO 1203 Vital Signs & I&O Last 24 Hrs of Vitals and I&O: Vital Signs Date Time Temp Pulse Resp B/P B/P Pulse O2 O2 Flow FiO2 Mean Ox Delivery Rate 01/26 0901 92 Nasal 3.0L Cannula 01/26 0800 94 Nasal 2.5L Cannula 01/26 0706 97.0 82 20 122/92 94 Nasal Cannula 01/26 0026 89 92 01/26 0000 BIPAP 01/257 98.5 101 20 125/71 95 Nasal 5.0L Cannula 01/25 1630 95 Nasal 4.0L Cannula 06/21 1413 97.9 97 20 120/82 93 Nasal 5.0L Cannula 01/25 1311 93 Nasal 4.0L Cannula Impression/Plan Impression/Plan Impression/Plan: PATIENT: NOEL GRAY The pulmonary arteries are adequately opacified and are normal in caliber. No central, lobar, or segmental filling defects are seen to suggest pulmonary emboli. The lungs are clear except for mild bibasilar atelectatic changes. Specifically, there is no evidence of a pneumothorax. The tracheobronchial tree is patent. The thyroid gland is unremarkable. The thoracic aorta is normal in caliber. There is no evidence of mediastinal or hilar adenopathy. There is no pleural or pericardial effusion. There is no chest wall mass. No supraclavicular or axillary adenopathy is identified. The visualized abdominal structures are within normal limits. Degenerative spondylitic changes are present in the dorsal spine. No focal osteolytic or osteoblastic changes are seen. No evidence of pulmonary embolic disease or other acute cardiopulmonary process. Physical Exam General Appearance Alert, Oriented X3, Cooperative, No Acute Distress Skin No Rashes, No Breakdown HEENT Atraumatic, PERRLA, EOMI Neck Supple Cardiovascular Normal S1, Normal S2 Lungs poor air entry, [id number] wheezing Abdomen Normal Bowel Sounds, Soft, No Tenderness Neurological Normal Speech, Strength at 5/5 X4 Ext, Normal Tone, Sensation Intact Extremities No Clubbing, No Cyanosis Vascular Normal Pulses, Pulses Symmetrical ABG reviewed PCo2 70 plus IMPRESSION This a gentleman with schizophrenia morbid obesity with previous history of chronic hypercarbic respiratory failure has * Improving Acute on chronic hypercarbic and hypoxemic respiratory failure related to profound obstructive sleep apnea and obesity hypoventilation syndrome with pulmonary hypertension. * Rt heart dysfunction due to severe obstructive sleep apnea * Chronic hypercarbia related to obesity hypoventilation syndrome * No clinical evidence suggestive of significant emphysema patient may have asthma with chronic bronchitis with remote history of smoking but does not actively smoke at this present time * Morbid obesity * Schizophrenia RECOMMENDATION Cont diuresis Dc on lasix po 4 times a week and diamox twice a week Outpatient sleep study Pt to follow with out pt katerine laughlin on as he has already made an appt Can call me office for any sig issues till then
[2017-01-26] MEDS ORDERED: DIAMOX SEQUELS500 MG PO (13:15)
== END 2017-01-26 13:45 | disposition home health service (06) | DRG 189 ==
LOC: ERH 12:18 → ERHI 15:53 → 2NB 15:53 → ENRESERV 16:22 → ENTRNSPT 17:09 → 2NB 17:26 → CMPTRNSPT 17:41 → ENPENDDIS 01-26 11:43 → 2NB 01-26 13:45
PROVIDERS: Emergency Medicine; ADMIT Internal Medicine
PROC: 5A09357 Assistance with Respiratory Ventilation, Less than 24 Consecutive Hours, Continuous Positive Airway Pressure (ICD-10-PCS; principal; 2017-01-25)
DX: J96.21 Acute and chronic respiratory failure with hypoxia (principal); I27.2 Other secondary pulmonary hypertension; E66.2 Morbid (severe) obesity with alveolar hypoventilation; Z68.42 Body mass index [BMI] 45.0-49.9, adult; J44.1 Chronic obstructive pulmonary disease with (acute) exacerbation; E11.9 Type 2 diabetes mellitus without complications; J96.22 Acute and chronic respiratory failure with hypercapnia; F20.9 Schizophrenia, unspecified; Z87.891 Personal history of nicotine dependence; Z79.84 Long term (current) use of oral hypoglycemic drugs
CPT/HCPCS: 2NBSP; 36415; 82436; 93005; 93010; 99291; J0456; J1650; J1940; J2920; J2930; J7040; J7512

== ENCOUNTER 2017-11-30 09:00 | Emergency (ER) | payer OTHER ==
[~2017-11-30] VITALS: Ht 175.3 cm; Wt 135.6 kg
[~2017-11-30 09:00] MED LIST changes: +DIAMOX SEQUELS500 MG PO; +FUROSEMIDE40 M1 PO; +GLIPIZIDE5 M2 PO
[2017-11-30 09:06] VITALS: BP 121/84
--- NOTE | 2017-11-30 09:25 | ED INFLUENZA/URI COMPLAINT ---
History of Present Illness General Chief Complaint: Upper Respiratory Sx/Fever Stated Complaint: COUGH Source: patient Exam Limitations: no limitations Vital Signs & Intake/Output Vital Signs & Intake/Output Vital Signs Date Time Temp Pulse Resp B/P B/P Pulse O2 O2 Flow FiO2 Mean Ox Delivery Rate 11/30 0906 96.5 90 18 121/84 98 Room Air Room Air Allergies Coded Allergies: haloperidol (From HALDOL) (Severe, ANAPHYLAXIS/TONGUE SWELLS UP 11/30/17) Reconcile Medications Acetazolamide (Diamox Sequels) 500 MG CAPSULE.ER 1 CAP PO 2XW breathing Azithromycin 500 MG TABLET 1 TAB PO DAILY breathing Furosemide 40 MG TABLET 1 TAB PO SI leg swelling Please take 4 times a week Example: Monday, monday, monday, monday. Glipizide 5 MG TABLET 1 TAB PO BID DM (Reported) Paliperidone (Invega) 3 MG TAB.ER.24 1 TAB PO QAM SCHIZOPHRENIA (Reported) Prednisone 10 MG TABLET 1 TAB PO DAILY breathing Triage Note: PT TO ED WITH C/O COUGH ALL WEEK, ? FEVER AT NIGHT, FEELING CHILLS, WEAK, AT TIMES NAUSEA. Triage Nurses Notes Reviewed? yes Onset: Gradual Duration: day(s): (4) Timing: remote history Severity: moderate Prior Episodes/Possible Cause: occassional episodes No Modifying Factors: none HPI: Patient is a 42-year-old male with history of asthma, sleep apnea and diabetes presenting to the emergency Department chief complaint of malaise, tactile fevers and chills 4 days. Also reports dry cough and wheezing. He saw a walk- in clinic, Monday, was told that it was an exacerbation of his asthma and plan albuterol inhaler. Patient reports minimal relief. Denies recent travel or sick contacts. UNSURE IF HE GOT influenza vaccine this year. No nausea or vomiting. Denies abdominal pain. No chest pain or palpitations. Past History Travel History Traveled to [place] past 21 day No Medical History Any Pertinent Medical History? see below for history Neurological: NONE EENT: NONE Cardiovascular: NONE Respiratory: pneumonia Gastrointestinal: NONE Hepatic: NONE Renal: NONE Musculoskeletal: NONE Psychiatric: schizophrenia Endocrine: diabetes Blood Disorders: NONE Cancer(s): NONE NEW BUSINESS CLERK/Reproductive: NONE History of MRSA: No History of VRE: No History of CDIFF: No Surgical History Surgical History: non-contributory Psychosocial History Who do you live with Spouse Services at Home None What is your primary language Bengali Tobacco Use: Never used ETOH Use: denies use Illicit Drug Use: denies illicit drug use Family History Family History, If Any: Relation not specified for: *No pertinent family history Hx Contributory? No Review of Systems Review of Systems Constitutional: Reports: see HPI. Comments Review of systems: See HPI, All other systems negative. Constitutional, no weight loss HEENT: No visual changes no sore throat Cardiovascular: No chest pain ,palpitation , orthopnea or ankle swelling Skin, no jaundice no rashes Respiratory: No sputum or hemoptysis GI: no vomiting : No dysuria No hematuria Muscle skeletal: no back pain, no neck pain, Neurologic: No numbness no confusion NO HEADACHES Psych: No stress anxiety or depression,. Heme/endocrine: No bruising no bleeding no polyuria or polydipsia Immunology: No splenectomy or history of AIDS Physical Exam Physical Exam General Appearance: well developed/nourished, no apparent distress, alert, awake , comfortable, obese Ears, Nose, Throat: RIGHT CANAL ERYTHEMATOUS, MOD AMT OF CERUMEN BILAT. Comments: OBESE person in no acute distress HEENT: Pupils equally round and reactive to light and accommodation. Nose is atraumatic. External auditory canal IS ERYTHEMATOUS ON RIGHT and Tympanic membranes clear. MOD AMT OF CERUMEN BILATERALLY, NON-OBSTRUCTING. Pharynx is moderately erythematous, no exudate. Uvula midline. Pharynx secretions without difficulty. No swelling or edema. Neck: Supple, no lymphadenopathy, normal range of motion without pain or tenderness Back: Nontender Cardiovascular: Regular rate and rhythms no murmurs rubs or gallops, normal JVP Respiratory: Chest nontender. No respiratory distress.RHONCHI TO LEFT LOWER LOBE. MILD EXPIRATORY WHEEZE NOTED OVER ANTERIOR CHEST. Extremity: No edema Neuro: Alert oriented x3 Skin: No appreciable rash on exposed skin, skin is warm and SLIGHTLY DIAPHORETIC. Psych: Mood and affect is normal, memory and judgment is normal. Core Measures Sepsis Present: No Sepsis Focused Exam Completed? No Progress Differential Diagnosis: influenza, pneumonia, pharyngitis, sinusitis Plan of Care: Orders Procedure Date/time Status VIRAL CULTURE 11/30 932 Active RAPID VIRAL INFLUENZA A 11/30 930 Complete THROAT CULTURE W/QUICK STREP 11/30 930 Active Laboratory Tests 11/30/17 0933: Virus Culture Pending Microbiology 11/30 934 NASOPHARYN: Influenza Virus A & B Rapid Smear - COMP INFLUENZA TYPE B Diagnostic Imaging: Viewed by Me: Radiology Read. Discussed w/RAD: Radiology Read. CXR Impression: no acute abnormality, no infiltrates, normal size heart, normal mediastinum Initial ED EKG: none Comments: 11/30/2017 10:06:37 AM patient informed of positive influenza. Still pending x- ray at this time. Likely symptomatic secondary to flu. Departure Departure Time of Disposition: 1009 Disposition: HOME OR SELF CARE Condition: Stable Clinical Impression Primary Impression: Influenza Referrals: Kolby LANE,Josafat Robert (PCP/Family) Additional Instructions: Follow-up with a primary care physician in 5-7 days. Increase fluids. Take [id number] Motrin or Tylenol as directed for any aches or fevers. Continue using albuterol inhaler as directed. Take Tessalon Perles as prescribed. Departure Forms: Customer Survey General Discharge Information Prescriptions: Current Visit Scripts Benzonatate (Tessalon Perle) 1 CAP PO TID PRN COUGH #30 CAP
--- NOTE | 2017-11-30 10:07 | RADIOLOGY REPORT ---
EXAMINATION: XR CHEST CLINICAL INFORMATION: Cough, fever COMPARISON: 01/23/2017 TECHNIQUE: 2 views of the chest were obtained. FINDINGS: Cardiac and mediastinal silhouette is within normal limits. Lungs are symmetric expanded. There are no pleural effusions or pneumothorax. No focal consolidation. No acute osseous abnormality. IMPRESSION: No evidence of focal airspace disease.
[2017-11-30] MEDS ORDERED: TESSALON PERLE100 M1 PO (10:10)
== END 2017-11-30 10:21 ==
LOC: ERH 09:00
DX: J11.1 Influenza due to unidentified influenza virus with other respiratory manifestations (principal)
CPT/HCPCS: 71046; 87804; 87804-59